=== PATIENT | male | born 1970 | race American Indian/Alaskan Native ===

== ENCOUNTER 2017-02-14 03:50 | Inpatient (IN) | payer MEDICAID, SELFPAY ==
[2017-02-14 03:51] VITALS: BMI 23.3
[2017-02-14 04:08] VITALS: O2SAT 98
--- NOTE | 2017-02-14 04:19 | ED PDOC ---
HPI: Psych/Substance Abuse Time Seen by Provider: 02/14/17 04:08 Chief Complaint (Nursing): Psychiatric Evaluation Chief Complaint (Provider): crisis eval History Per: Patient History/Exam Limitations: clinical condition Additional History Per: Patient Additional Complaint(s): 46 y/o male self-presents for crisis eval. Patient states he has a history of schizophrenia, but has not been taking medications beacuse he does not have insurance. Patient states he has been hearing voices telling him to kill himself and other people. Patient talking to himself during interview; but able to be redirected when questions asked. . Past Medical History Reviewed: Historical Data, Nursing Documentation, Vital Signs Vital Signs: Last Vital Signs Temp 98.5 F 02/14/17 04:03 Pulse 95 H 02/14/17 04:03 Resp 17 02/14/17 04:03 BP 132/98 H 02/14/17 04:03 Pulse Ox 98 02/14/17 04:03 - Medical History PMH: Bipolar Disorder, HTN, Schizophrenia - Family History Family History: States: Unknown Family Hx - Home Medications Home Medications: Ambulatory Orders Medication Instructions Recorded Albuterol HFA [Ventolin HFA 90 1 puff IH Q4 PRN #1 inh 01/09/17 mcg/actuation (8 g)] Azithromycin [Zithromax] 250 mg PO DAILY #1 packet 01/09/17 Fluticasone Nasal [Flonase] 1 actuation NS BID #1 bottle 01/09/17 Ibuprofen [Motrin Tab] 600 mg PO Q6 PRN #15 tab 01/13/17 Amoxicillin/Clavulanate [Augmentin 1 tab PO BID #14 tab 01/19/17 875 MG-125 MG] - Allergies Allergies/Adverse Reactions: Allergies Allergy/AdvReac Type Severity Reaction Status Date / Time No Known Allergies Allergy Verified 01/25/17 14:23 Review of Systems ROS Statement: Except As Marked, All Systems Reviewed And Found Negative Psych: Positive for: Psychosis, Suicidal ideation Physical Exam - Reviewed Nursing Documentation Reviewed: Yes Vital Signs Reviewed: Yes - Physical Exam Appears: Positive for: Well, Non-toxic, No Acute Distress Head Exam: Positive for: ATRAUMATIC, NORMAL INSPECTION, NORMOCEPHALIC Skin: Positive for: Normal Color Eye Exam: Positive for: Normal appearance ENT: Positive for: Normal ENT Inspection Cardiovascular/Chest: Positive for: Regular Rate, Rhythm Respiratory: Positive for: Normal Breath Sounds Gastrointestinal/Abdominal: Positive for: Normal Exam Extremity: Positive for: Normal ROM Neurologic/Psych: Positive for: Alert, Oriented - Laboratory Results Result Diagrams: 02/14/17 04:34 02/14/17 04:34 - ECG O2 Sat by Pulse Oximetry: 98 - Progress ED Course And Treament: labs, urine, crisis eval ED OBSERVATION Date of observation admission: 02/14/17 Time of observation admission: 05:03 - Observation admission statement Patient is being placed in observation because:: alcohol intoxication, psychosis - Goals of Observation Goals of observation are:: observe for clinical sobriety, obtain crisis eval - Progress Note Progress Note: 02/14/17 05:04 Patient awake, resting comfortably Disposition - Clinical Impression Clinical Impression: Psychosis, Alcohol intoxication - Disposition Disposition: Transfer of Care Disposition Time: 05:51 Condition: STABLE Patient Signed Over To: Piter Lugo Handoff Comments: pending clinical sobriety, crisis eval
[2017-02-14 04:37] LABS: BASO % 0.7 % (0.0-2.0); EOS % 0.6 % (0.0-4.0); HEMATOCRIT 39.3 % (35.0-51.0); LYMPH # 1.6 K/uL (1.0-4.3); LYMPH % 39.9 % (20.0-40.0); MEAN CELL VOLUME 76.6 fl (80.0-94.0); MEAN CORPUSCULAR HEMOGLOBIN 25.1 pg (27.0-31.0); MEAN CORPUSCULAR HGB CONC 32.7 g/dL (33.0-37.0); MEAN PLATELET VOLUME 7.1 fl (7.2-11.7); MONO # 0.2 K/uL (0.0-0.8); MONO % 5.8 % (0.0-10.0); NEUT # 2.1 K/uL (1.8-7.0); NRBC % 0.1 % (0.0-0.0); RED CELL DISTRIBUTION WIDTH 14.6 % (11.5-14.5); WHITE BLOOD COUNT 3.9 K/uL (4.8-10.8)
[2017-02-14 04:46] LABS: ALB/GLOB RATIO 1.5 (1.0-2.1); ALCOHOL SERUM 201 mg/dl (0-10); ALKALINE PHOSPHATASE 63 U/L (38-126); ALT/SGPT 28 U/L (21-72); AST/SGOT 29 U/L (17-59); BILIRUBIN,TOTAL 0.4 mg/dl (0.2-1.3); BLOOD UREA NITROGEN 12 mg/dl (9-20); CALCIUM 9.7 mg/dL (8.4-10.2); CARBON DIOXIDE 25 mmol/L (22-30); CHLORIDE 106 mmol/L (98-107); GFR AFRICAN-AMERICAN > 60; GLUCOSE,RANDOM 108 mg/dL (75-110); POTASSIUM 4.2 MMOL/L (3.6-5.0); SODIUM 145 mmol/l (132-148)
--- NOTE | 2017-02-14 05:44 | ED PDOC ---
- Laboratory Results Result Diagrams: 02/14/17 04:34 02/14/17 04:34 - ECG O2 Sat by Pulse Oximetry: 98 Medical Decision Making Medical Decision Making: Patient s/o from Srinivasa Schmidt PA-C at 0600 pending sobriety and crisis eval. Patient s/o to Dr. Ding at 0700 pending sobriety and crisis eval. Scribe Attestation: Documented by Ney Andersen acting as a scribe for Piter Lugo MD. Provider Scribe Attestation: All medical record entries made by the Scribe were at my direction and personally dictated by me. I have reviewed the chart and agree that the record accurately reflects my personal performance of the history, physical exam, medical decision making, and the department course for this patient. I have also personally directed, reviewed, and agree with the discharge instructions and disposition. Disposition - Clinical Impression Clinical Impression: Schizophrenia - POA Present On Arrival: None - Disposition Disposition: Transfer of Care Disposition Time: 05:03 Condition: STABLE Patient Signed Over To: Dorcas Ding Handoff Comments: pending sobriety and crisis eval
[2017-02-14 07:00] LABS: RBC URINE 2 /hpf (0-3); URINE BILIRUBIN NEGATIVE (NEGATIVE); URINE BLOOD NEGATIVE (NEGATIVE); URINE COLOR STRAW (YELLOW); URINE GLUCOSE (UA) NEG (Normal); URINE KETONE NEGATIVE (NEGATIVE); URINE LEUKOCYTE ESTERASE NEG Leu/uL (Negative); URINE PROTEIN NEGATIVE (NEGATIVE); URINE UROBILINOGEN 0.2-1.0 mg/dL (0.2-1.0); WBC URINE < 1 /hpf (0-5)
--- NOTE | 2017-02-14 07:09 | ED PDOC ---
- Laboratory Results Result Diagrams: 02/14/17 04:34 02/14/17 04:34 - ECG Interpretation Of ECG: NSR @ 83, no ST-T changes. O2 Sat by Pulse Oximetry: 98 - Radiology X-Ray: Interpreted by Me X-Ray Interpretation: No Acute Disease Medical Decision Making Medical Decision Making: Time: 0700 Patient signed out by Dr. Lugo pending sobriety and crisis evaluation MEDICAL CLEARANCE: Pt medically cleared for psychiatric admission. Scribe Attestation: Documented by Afsaneh Pollock acting as a scribe for Dorcas Ding MD MD Scribe Attestation: All medical record entries made by the Scribe were at my direction and personally dictated by me. I have reviewed the chart and agree that the record accurately reflects my personal performance of the history, physical exam, medical decision making, and the department course for this patient. I have also personally directed, reviewed, and agree with the discharge instructions and disposition. Disposition - Clinical Impression Clinical Impression: Schizophrenia - POA Present On Arrival: None - Disposition Disposition: Admitted as In-Patient Disposition Time: 08:35 Condition: STABLE
--- NOTE | 2017-02-14 10:05 | RAD ---
HISTORY: Medical clearance COMPARISON: 01/09/2017. FINDINGS: LUNGS: No active pulmonary disease. PLEURA: No significant pleural effusion identified, no pneumothorax apparent. CARDIOVASCULAR: Normal. OSSEOUS STRUCTURES: No significant abnormalities. VISUALIZED UPPER ABDOMEN: Normal. OTHER FINDINGS: None. IMPRESSION: No active disease. No significant interval change compared to the prior examination(s).
[2017-02-14] MEDS ORDERED: DiphenhydrAMINE 50 mg/ml Inj IM PRN (11:47)
[2017-02-14] MEDS ORDERED: Alum-Mag Hydrox-Simethicone Susp (30 mL) PO PRN (11:47)
[2017-02-14] MEDS ORDERED: Magnesium Hydroxide Susp 30 ml UD PO PRN (11:47)
--- NOTE | 2017-02-14 11:59 | PCM.PSYCH ---
Initial Psychiatric Evaluation - Initial Psychiatric Evaluation Type of Admission: Voluntary Legal Status: Capacity Chief Complaint (in patient's own words): i have a headache Patient's Reaction to Hospitalization: cooperative History of Present Illness and Precipitating Events: 46 yo homeless male who states he has a history of schizoaffective disorder. he is positive for cocaine and alcohol. he presented to ER stating he ran out of meds and he is hearing the voice of the devil talking to him. this gives him a headache. he denies using cocaine, despite positive urine. he reports he has been drinking alcohol heavily for last two weeks. he reports he lost his insurance and cannot get his meds. he states he goes to clinic [facility] for treatment, but no records of this. he reports no sleep for 2 days. he is irritable. he states he gets migraine headaches and cannot talk further with the treatment team at this time. Current Medications: Active Medications Generic Name Dose Route Start Last Admin Trade Name Freq PRN Reason Stop Dose Admin Acetaminophen 650 mg 02/14/17 11:47 Tylenol 325mg Tab PO Q4 PRN Pain, moderate (4-7) Al Hydrox/Mg Hydrox/Simethicone 30 ml 02/14/17 11:47 Maalox Plus 30 Ml PO Q4 PRN Dyspepsia Diphenhydramine HCl 50 mg 02/14/17 11:47 Benadryl IM Q6 PRN Extrapyramidal S/S Unable PO Diphenhydramine HCl 50 mg 02/14/17 11:47 Benadryl PO Q6 PRN Extrapyramidal Symptoms Divalproex Sodium 500 mg 02/14/17 17:00 Emerson Escobar(*Bid*) PO BID CLAUDIA Folic Acid 1 mg 02/14/17 12:00 Folic Acid PO DAILY CLAUDIA Haloperidol 5 mg 02/14/17 11:47 Haldol PO Q4 PRN Agitation Haloperidol Lactate 5 mg 02/14/17 11:47 Haldol IM Q4 PRN Agitation, Unable to Take PO Ibuprofen 800 mg 02/14/17 11:47 Motrin Tab PO Q8 PRN Pain, severe (8-10) Lorazepam 2 mg 02/14/17 11:47 Ativan IM Q4 PRN Anxiety/Agitation,Unable PO Lorazepam 2 mg 02/14/17 11:47 Ativan PO Q4 PRN Anxiety/Agitation Lorazepam 1 mg 02/14/17 17:00 Ativan PO BIDHS CLAUDIA Magnesium Hydroxide 30 ml 02/14/17 11:47 Milk Of Magnesia PO HS PRN Constipation Risperidone 1 mg 02/14/17 12:00 Risperdal M-Tab PO DAILY CLAUDIA Thiamine HCl 100 mg 02/14/17 12:00 Vitamin B1 Tab PO DAILY CLAUDIA Trazodone HCl 50 mg 02/14/17 22:00 Desyrel PO HS CLAUDIA Past Psychiatric History - Past Psychiatric History Previous Treatment History: Inpatient Prior Professional Help: as per hpi. states he was hospitalized at [facility] 4 months ago History of Abuse: will need to assess at a later time History of ETOH/Drug Use: cocaine, alcohol. denies cigarettes use. denies other illicit substance. use. will not quantify alcohol use and denies that he uses cocaine History of Family Illness: denies Pertinent Medical Hx (Current Medical&Sleep Prob, Allergies): Allergies Allergy/AdvReac Type Severity Reaction Status Date / Time No Known Allergies Allergy Verified 01/25/17 14:23 No Known Home Med 02/14/17 states he has migraine headaches and hypertension Review of Systems - Psychiatric Psychiatric: As Per HPI Mental Status Examination - Personal Presentation Personal Presentation: Looks stated age Additional comments: avoides eye contact, holds head and rocks back and forth - Affect Affect: Constricted, Depressed - Motor Activity Motor Activity: Calm - Reliability in Providing Information Reliability in Providing Information: Poor, due to alteration in thoughts - Speech Speech: Organized - Mood Mood: Depressed, Anxious - Formal Thought Process Formal Thought Process: Hallucinations (hears the devils voices), Delusions - Hallucinations/Delusions Hallucinations: Auditory - Obsessions/Compulsions Obsessions: No Compulsions: No - Cognitive Functions Orientation: Person Sensorium: Alert Attention/Concentration: Attentive, Easily distracted Abstract Thinking: Paterson Estimate of Intelligence: Below average Judgement: Imparied, as evidence by: Poor judgement, Intact, as evidence by: Insight regarding need for hospitalization Memory: Recent intact, as evidence by: Ability to recall events of the day, Remote intact, as evidenced by: Abilit to recall sig. life events - Risk Risk: Suicidal, Withdrawal - Strength & Assets Inventory Strength & Assets Inventory: Intelligence - Limitations Limitations: Other (homeless) DSM 5 DX - DSM 5 DSM 5 Diagnosis: schizoaffective disorder alcohol dependence cocaine abuse - Recommended/Plan of Treatment Treatment Recommendations and Plan of Treatment: admit to [facility] for safety and observation gather collateral information provide supportive therapy adjust meds- restart depakote, risperdal, will use ativan to detox. hospitalist consult- keegan, htn disposition planning Projected ELOS: 3-5 days Prognosis: fair - Smoking Cessation Smoking Cessation Initiated: No Reason for not providing: denies smoking
--- NOTE | 2017-02-14 13:26 | CARD ---
APPROVED REPORT EKG Measurement Heart [id number] DC [id number] <Conclusion> Normal sinus rhythm Normal ECG
[2017-02-14] MEDS: Risperidone M tab 1 MG PO SCH (17:05)
[2017-02-14] MEDS: Divalproex 500 mg DR(BID formulation) PO SCH (17:05)
[2017-02-15 07:25] LABS: CHOLESTEROL 207 mg/dL (0-199)
[2017-02-15] MEDS: Risperidone M tab 1 MG PO SCH ×2 (10:09→21:53)
[2017-02-15] MEDS: Divalproex 500 mg DR(BID formulation) PO SCH ×2 (10:09→17:28)
--- NOTE | 2017-02-15 12:59 | PCM.PYCHPN ---
Psychiatric Progress Note - Psychiatric Progress Note Patient seen today, length of contact: in treatment team Patient Chief Complaint: voices are still there Problems Identified/Issues Discussed: pt reports headache is improing. states risperdal helps with voices, but they are still present. he is denying any suicidal thoughts currently. isolates in room. cannot explain how cocaine ended up in his uds. pt wants to return to [facility]. no evidence of alcohol withdrawal Medication Change: Yes Medical Record Reviewed: Yes Mental Status Examination - Cognitive Function Orientation: Person Memory: Intact Attention: WNL Concentration: WNL Association: WNL Fund of Knowledge: [facility] Decription of patient's judgement and insights: fair - Mood Mood: Depressed, Anxious - Affect Affect: Constricted, Depressed - Formal Thought Process Formal Thought Process: Hallucinations (hears the devils voices), Delusions Psychotic Thoughts and Behaviors: states voices are improving - Suicidal Ideation Suicidal Ideation: No - Homicidal Ideation Homicidal Ideation: No Goal/Treatment Plan - Goal/Treatment Plan Need for Continued Stay: Remain at risks for inpatient hospitalization, Discharge may exacerbated symptoms Progress Toward Problem(s) and Goals/Treatment Plan: schizoaffective disorder alcohol dependence cocaine abuse will increase risperdal start to taper ativan hospitalist managing medical issues- htn Estimated Date of D/C: 02/19/17 - Smoking Cessation Smoking Cessation Initiated: No Reason for not providing: does not smoke
--- NOTE | 2017-02-15 19:28 | CP.PCM.HP ---
Past Patient History - Infectious Disease Hx of Infectious Diseases: None - Past Social History Smoking Status: Never Smoked - CARDIAC Hx Cardiac Disorders: No - PULMONARY Hx Tuberculosis: No - NEUROLOGICAL HX Cerebrovascular Accident: No Hx Seizures: No - HEENT Hx HEENT Problems: No - RENAL Hx Chronic Kidney Disease: No - ENDOCRINE/METABOLIC Hx Endocrine Disorders: No - HEMATOLOGICAL/ONCOLOGICAL Hx Cancer: No Hx Human Immunodeficiency Virus (HIV): No - INTEGUMENTARY Hx Dermatological Problems: No - MUSCULOSKELETAL/RHEUMATOLOGICAL Hx Musculoskeletal Disorders: No - GASTROINTESTINAL Hx Gastrointestinal Disorders: No - GENITOURINARY/GYNECOLOGICAL Hx Sexually Transmitted Disorders: No - PSYCHIATRIC Hx Substance Use: Yes - SURGICAL HISTORY Hx Surgeries: No - ANESTHESIA Hx Anesthesia: No Meds Allergies/Adverse Reactions: Allergies Allergy/AdvReac Type Severity Reaction Status Date / Time No Known Allergies Allergy Verified 01/25/17 14:23 Results - Vital Signs Recent Vital Signs: Last Vital Signs Temp 97.5 F L 02/15/17 17:50 Pulse 120 H 02/15/17 17:50 Resp 20 02/15/17 17:50 BP 116/68 02/15/17 17:50 Pulse Ox 98 02/15/17 04:42 - Labs Result Diagrams: 02/14/17 04:34 02/14/17 04:34 Labs: Laboratory Results - last 24 hr 02/15/17 02/15/17 06:00 06:00 Hemoglobin A1c 6.1 Triglycerides 125 D Cholesterol 207 H LDL Cholesterol Direct 111 HDL Cholesterol 55
--- NOTE | 2017-02-15 19:34 | CP.PCM.CON ---
History of Present Illness - History of Present Illness History of Present Illness: 46 y/o male admitted for exacerbation of schizophrenia, substance abuse and suicidal ideations. Patient also has a history of HTN. Continues to have auditory hallucinations, patient was without medications for an unknown period of time. PMH: Schizophrenia, HTN Meds: lisinopril 10 mg (per [facility]), previous psych medications being reevaluated presently by inpatient psych Allergies: NKDA PMD: MAC Past Patient History - Infectious Disease Hx of Infectious Diseases: None - Past Social History Smoking Status: Never Smoked - CARDIAC Hx Cardiac Disorders: No - PULMONARY Hx Tuberculosis: No - NEUROLOGICAL HX Cerebrovascular Accident: No Hx Seizures: No - HEENT Hx HEENT Problems: No - RENAL Hx Chronic Kidney Disease: No - ENDOCRINE/METABOLIC Hx Endocrine Disorders: No - HEMATOLOGICAL/ONCOLOGICAL Hx Cancer: No Hx Human Immunodeficiency Virus (HIV): No - INTEGUMENTARY Hx Dermatological Problems: No - MUSCULOSKELETAL/RHEUMATOLOGICAL Hx Musculoskeletal Disorders: No - GASTROINTESTINAL Hx Gastrointestinal Disorders: No - GENITOURINARY/GYNECOLOGICAL Hx Sexually Transmitted Disorders: No - PSYCHIATRIC Hx Substance Use: Yes - SURGICAL HISTORY Hx Surgeries: No - ANESTHESIA Hx Anesthesia: No Meds Allergies/Adverse Reactions: Allergies Allergy/AdvReac Type Severity Reaction Status Date / Time No Known Allergies Allergy Verified 01/25/17 14:23 - Medications Medications: Current Medications Acetaminophen (Tylenol 325mg Tab) 650 mg PO Q4 PRN PRN Reason: Pain, moderate (4-7) Last Admin: 02/14/17 12:20 Dose: 650 mg Al Hydrox/Mg Hydrox/Simethicone (Maalox Plus 30 Ml) 30 ml PO Q4 PRN PRN Reason: Dyspepsia Diphenhydramine HCl (Benadryl) 50 mg IM Q6 PRN PRN Reason: Extrapyramidal S/S Unable PO Diphenhydramine HCl (Benadryl) 50 mg PO Q6 PRN PRN Reason: Extrapyramidal Symptoms Divalproex Sodium (Depakote Dr(*Bid*)) 500 mg PO BID [facility] Last Admin: 02/15/17 17:28 Dose: 500 mg Folic Acid (Folic Acid) 1 mg PO DAILY [facility] Last Admin: 02/15/17 10:09 Dose: 1 mg Haloperidol (Haldol) 5 mg PO Q4 PRN PRN Reason: Agitation Haloperidol Lactate (Haldol) 5 mg IM Q4 PRN PRN Reason: Agitation, Unable to Take PO Ibuprofen (Motrin Tab) 800 mg PO Q8 PRN PRN Reason: Pain, severe (8-10) Last Admin: 02/15/17 10:10 Dose: 800 mg Lisinopril (Zestril) 10 mg PO DAILY [facility] Lorazepam (Ativan) 2 mg IM Q4 PRN PRN Reason: Anxiety/Agitation,Unable PO Lorazepam (Ativan) 2 mg PO Q4 PRN PRN Reason: Anxiety/Agitation Lorazepam (Ativan) 1 mg PO BID [facility] Last Admin: 02/15/17 17:28 Dose: 1 mg Magnesium Hydroxide (Milk Of Magnesia) 30 ml PO HS PRN PRN Reason: Constipation Risperidone (Risperdal M-Tab) 1 mg PO DAILY [facility] Last Admin: 02/15/17 10:09 Dose: 1 mg Risperidone (Risperdal M-Tab) 1 mg PO HS [facility] Thiamine HCl (Vitamin B1 Tab) 100 mg PO DAILY [facility] Last Admin: 02/15/17 10:09 Dose: 100 mg Trazodone HCl (Desyrel) 50 mg PO HS [facility] Last Admin: 02/14/17 21:31 Dose: 50 mg Physical Exam - Constitutional Appears: Non-toxic - Head Exam Head Exam: ATRAUMATIC - Eye Exam Eye Exam: EOMI Pupil Exam: PERRL - Respiratory Exam Respiratory Exam: NORMAL BREATHING PATTERN - Cardiovascular Exam Cardiovascular Exam: REGULAR RHYTHM - GI/Abdominal Exam GI & Abdominal Exam: Soft. absent: Tenderness - Neurological Exam Neurological exam: Alert - Psychiatric Exam Psychiatric exam: Flat Affect - Skin Skin Exam: Dry, Warm Results - Vital Signs Recent Vital Signs: Last Vital Signs Temp 97.5 F L 02/15/17 17:50 Pulse 120 H 02/15/17 17:50 Resp 20 02/15/17 17:50 BP 116/68 02/15/17 17:50 Pulse Ox 98 02/15/17 04:42 - Labs Result Diagrams: 02/14/17 04:34 02/14/17 04:34 Labs: Laboratory Results - last 24 hr 02/15/17 02/15/17 06:00 06:00 Hemoglobin A1c 6.1 Triglycerides 125 D Cholesterol 207 H LDL Cholesterol Direct 111 HDL Cholesterol 55 Assessment & Plan - Assessment and Plan (Free Text) Plan: 46 y/o male admitted for exacerbation of schizophrenia, substance abuse and suicidal ideations. Patient also has a history of HTN. Schizophrenia managemnet as per psych HTN controlled c/w home med lisinopril 10mg PO PPx DVT - ambulation only
[2017-02-16 07:49] LABS: HEMATOCRIT 40.1 % (35.0-51.0); MEAN CELL VOLUME 77.1 fl (80.0-94.0); MEAN CORPUSCULAR HEMOGLOBIN 25.2 pg (27.0-31.0); MEAN CORPUSCULAR HGB CONC 32.7 g/dL (33.0-37.0); RED CELL DISTRIBUTION WIDTH 14.7 % (11.5-14.5); WHITE BLOOD COUNT 5.5 K/uL (4.8-10.8)
--- NOTE | 2017-02-16 08:35 | PCM.PYCHPN ---
Psychiatric Progress Note - Psychiatric Progress Note Patient seen today, length of contact: discussed with team Patient Chief Complaint: i'm not hearing satan now Problems Identified/Issues Discussed: pt denies having headaches today. he is isolating in room. sitting up in bed holding hands over head. pt is denying feeling nauseated, no tremors. denies withdrawal symptoms. dneies se with increase in risperdal. Medication Change: No Medical Record Reviewed: Yes Mental Status Examination - Cognitive Function Orientation: Person Memory: Intact Attention: WNL Concentration: WNL Association: WNL Fund of Knowledge: WN Decription of patient's judgement and insights: fair - Mood Mood: Anxious - Affect Affect: Constricted, Depressed - Speech Speech: Appropriate - Formal Thought Process Formal Thought Process: No Impairment Psychotic Thoughts and Behaviors: denies a/v hallucinations - Suicidal Ideation Suicidal Ideation: No - Homicidal Ideation Homicidal Ideation: No Plan: denies suicidal or homicidal thoughts Goal/Treatment Plan - Goal/Treatment Plan Need for Continued Stay: Remain at risks for inpatient hospitalization, Discharge may exacerbated symptoms Progress Toward Problem(s) and Goals/Treatment Plan: schizoaffective disorder alcohol dependence cocaine abuse will continue risperdal at current dose will lower ativan tomorrow hospitalist managing medical issues- htn Estimated Date of D/C: 02/19/17
[2017-02-16] MEDS: Risperidone M tab 1 MG PO SCH ×3 (08:45→21:38)
[2017-02-16] MEDS: Divalproex 500 mg DR(BID formulation) PO SCH ×2 (08:45→17:17)
[2017-02-17] MEDS: Divalproex 500 mg DR(BID formulation) PO SCH ×2 (09:33→17:48)
[2017-02-17] MEDS: Risperidone M tab 1 MG PO SCH ×3 (09:33→21:06)
--- NOTE | 2017-02-17 10:19 | PCM.PYCHPN ---
Psychiatric Progress Note - Psychiatric Progress Note Patient seen today, length of contact: Patient evaluated, chart reviewed, case discussed with team Patient Chief Complaint: "I'm good" Problems Identified/Issues Discussed: Patient was observed methodically making up his bed. He reports that his mood is improving. She denies acute symptoms of ETOH w/drawal, currently on Ativan taper. He has been engaging appropriately with staff and peers. He is goal- oriented in conversation. He has been compliant with medications and denies acute side effects. Medication Change: Yes (Taper Ativan) Medical Record Reviewed: Yes Mental Status Examination - Cognitive Function Orientation: Person, Place, Situation, Time Memory: Intact Attention: WNL Concentration: WNL Association: WNL Fund of Knowledge: [facility] Decription of patient's judgement and insights: Fair I/J - Mood Mood: Depressed, Anxious - Affect Affect: Constricted - Speech Speech: Appropriate - Formal Thought Process Formal Thought Process: No Impairment - Suicidal Ideation Suicidal Ideation: No - Homicidal Ideation Homicidal Ideation: No Goal/Treatment Plan - Goal/Treatment Plan Need for Continued Stay: Remain at risks for inpatient hospitalization, Discharge may exacerbated symptoms Progress Toward Problem(s) and Goals/Treatment Plan: 46 yo male w/ h/o schizoaffective disorder, cocaine use disorder, alcohol use disorder, now improving clinically, but would benefit from continued psychiatric hospitalization from safety, treatment and stabilization. -Taper Ativan; no current signs/symptoms of ETOH withdrawal -Continue Depakote 500 mg PO BID (VPA 63.4 on 02/17/17), Risperdal 1 mg PO Q12 hr, Trazodone 50 mg PO HS -Individual and group therapy -Substance abuse cessation counseling Estimated Date of D/C: 02/19/17
[2017-02-18] MEDS: Divalproex 500 mg DR(BID formulation) PO SCH ×2 (09:06→16:52)
[2017-02-18] MEDS: Risperidone M tab 1 MG PO SCH ×2 (09:07→21:19)
--- NOTE | 2017-02-18 14:08 | PCM.PYCHPN ---
Psychiatric Progress Note - Psychiatric Progress Note Patient seen today, length of contact: Patient evaluated, chart reviewed, case discussed with team Patient Chief Complaint: "I'm good" Problems Identified/Issues Discussed: No significant events overnight. He reports that his mood is improving. She denies acute symptoms of ETOH w/drawal. He has been engaging appropriately with staff and peers. He is goal-oriented in conversation. He has been compliant with medications and denies acute side effects. Medication Change: Yes (Stop Ativan) Medical Record Reviewed: Yes Mental Status Examination - Cognitive Function Orientation: Person, Place, Situation, Time Memory: Intact Attention: WNL Concentration: WNL Association: [facility] Fund of Knowledge: [facility] Decription of patient's judgement and insights: Fair I/J - Mood Mood: Neutral - Affect Affect: Constricted - Speech Speech: Appropriate - Formal Thought Process Formal Thought Process: No Impairment Psychotic Thoughts and Behaviors: NO AH/VH/paranoia - Suicidal Ideation Suicidal Ideation: No - Homicidal Ideation Homicidal Ideation: No Goal/Treatment Plan - Goal/Treatment Plan Need for Continued Stay: Remain at risks for inpatient hospitalization, Discharge may exacerbated symptoms Progress Toward Problem(s) and Goals/Treatment Plan: 46 yo male w/ h/o schizoaffective disorder, cocaine use disorder, alcohol use disorder, now improving clinically. -Stop Ativan; no current signs/symptoms of ETOH withdrawal -Continue Depakote 500 mg PO BID (VPA 63.4 on 02/17/17), Risperdal 1 mg PO Q12 hr, Trazodone 50 mg PO HS -Individual and group therapy -Substance abuse cessation counseling -Discharge tomorrow if patient continues to improve clinically Estimated Date of D/C: 02/19/17
[2017-02-19 06:09] VITALS: BP 130/88; PULSE 80; RESP 20; TEMP 97.5
[2017-02-19] MEDS: Divalproex 500 mg DR(BID formulation) PO SCH (09:08)
[2017-02-19] MEDS: Risperidone M tab 1 MG PO SCH (09:09)
--- NOTE | 2017-02-19 14:24 | PCM.PYCHDC ---
Mental Status Examination - Mental Status Examination Orientation: Person, Place, Situation, Time Memory: Intact Mood: Neutral Affect: Broad Speech: Appropriate Attention: WNL Concentration: WNL Association: WNL Fund of Knowledge: WNL Formal Thought Process: No Impairment Description of patient's judgement and insight: fair i./j Psychotic Thoughts and Behaviors: denies a/v hallucinations Suicidal Ideation: No Current Homicidal Ideation?: No Plan: pt is denying any suicidal or homicidal thoughts/plan or intent Discharge Summary - Discharge Note Reason for Hospitalization: pt was having psychotic symptoms and depression in context of cocaine and alcohol use. Consultations:: List each consultation separately and include: 1. Reason for request. 2. Findings. 3. Follow-up Consultations: seen by the hospitalist Summary of Hospital Course include:: 1. Description of specific treatment plan utilized for patients during their course of treatmen. 2. Summarize the time- course for resolution of acute symptoms and/or regressed behaviors. 3. Describe issues identified and worked on during hospitalization. 4. Describe medication utilized. 5. Describe medical problems identified and treated. 6. Reassessment of suicide risk Summary of Hospital Course: 46 yo homeless male who states he has a history of schizoaffective disorder. he is positive for cocaine and alcohol. he presented to ER stating he ran out of meds and he is hearing the voice of the devil talking to him. this gives him a headache. he denies using cocaine, despite positive urine. he reports he has been drinking alcohol heavily for last two weeks. he reports he lost his insurance and cannot get his meds. he states he goes to clinic on [facility] for treatment, but no records of this. he reports no sleep for 2 days. he is irritable. he states he gets migraine headaches and cannot talk further with the treatment team at this time. pt was admitted to [facility] and oriented to the unit. placed on routine safety protocols. pt was started on meds to detox from alcohol and was started on risperdal and depakote to target his mood symptoms. pt transfered to 3 to accomadate more acutely disturbed pt's. his mood improved and he was no longer having any auditory hallucinations. he was denying any suicidal or homicidal thoughts. he was agreeing to follow up with [facility] after discharge. - Final Diagnosis (DSM 5) Condition upon Discharge: STABLE DSM 5: schizoaffective disorder alcohol dependence cocaine abuse Disposition: HOME/ ROUTINE Follow-up Treatment Plan: follow up with aftercare as directed take medications as prescribed do not use alcohol, tobacco or other illicit substances call 911 if any suicidal or homicidal thoughts attend aa/na meetings daily Prescriptions/Medication Reconciliation: Divalproex [Depakote DR(*BID*)] 500 mg PO BID #60 tcp Folic Acid 1 mg PO DAILY #30 tab Haloperidol [Haldol] 5 mg PO Q4 PRN #30 PRN Reason: Agitation Lisinopril [Zestril] 10 mg PO DAILY #30 tab risperiDONE [RisperDAL Tab] 1 mg PO BID #60 tab Thiamine [Vitamin B1 Tab] 100 mg PO DAILY #30 tab traZODone [Desyrel] 50 mg PO HS #30 tab - Smoking Cessation Smoking Cessation Medication prescribed: No Reason for not providing: declines - Antipsychotic Medications Pt discharged on 2 or more routine antipsychotic medications: No
== END 2017-02-19 13:45 | disposition home or self-care (01) | DRG 885 ==
LOC: H.ER 03:50 → OBSVTOIN 05:03 → H.EROBSV 05:03 → INTOOBSV 05:03 → OBSVTOIN 08:35 → H.ERHOLD 08:35 → H.EROBSV 08:47 → H.PSYCH 10:02 → H.STEP 02-17 22:20
PROVIDERS: ADMIT Psychiatry & Neurology Psychiatry; ATTEND Psychiatry & Neurology Psychiatry
PROC: GZHZZZZ Group Psychotherapy (ICD-10-PCS; principal; 2017-02-14)
PROC: GZ58ZZZ Individual Psychotherapy, Cognitive-Behavioral (ICD-10-PCS; 2017-02-14)
DX: F25.9 Schizoaffective disorder, unspecified (principal); R45.851 Suicidal ideations; F10.229 Alcohol dependence with intoxication, unspecified; F14.10 Cocaine abuse, uncomplicated; F31.9 Bipolar disorder, unspecified; Y90.7 Blood alcohol level of 200-239 mg/100 ml; I10 Essential (primary) hypertension; Z59.0 Homelessness

== ENCOUNTER 2017-02-23 13:31 | Emergency (ER) | payer MEDICAID ==
[2017-02-23 13:32] VITALS: BMI 23.3
[2017-02-23 14:04] VITALS: BP 143/83; RESP 16; TEMP 100.5; O2SAT 100
--- NOTE | 2017-02-23 14:36 | ED PDOC ---
HPI: General Adult Time Seen by Provider: 02/23/17 14:06 Chief Complaint (Nursing): Cough, Cold, Congestion Chief Complaint (Provider): Cough, Cold, Congestion History Per: Patient History/Exam Limitations: no limitations Onset/Duration Of Symptoms: Hrs Current Symptoms Are (Timing): Still Present Additional Complaint(s): Bradly Doherty is a 46 year old male that presents to the ED with a chief complaint of cough and fever that he developed today. Patient reports that he had developed similar symptoms two weeks ago without fever, and that those symptoms were resolved with [id number] cough medication. He also states that he had a chest x-ray done two weeks ago, which was normal. Past Medical History Reviewed: Historical Data, Nursing Documentation, Vital Signs Vital Signs: Last Vital Signs Temp 100.5 F H 02/23/17 15:49 Pulse 92 H 02/23/17 15:49 Resp 16 02/23/17 14:00 BP 143/83 02/23/17 14:00 Pulse Ox 100 02/23/17 14:38 - Medical History PMH: Bipolar Disorder, HTN, Schizophrenia Denies: Diabetes, Hepatitis, HIV, Chronic Kidney Disease, Seizures, Sexually Transmitted Disease - Family History Family History: States: Unknown Family Hx - Home Medications Home Medications: Ambulatory Orders Medication Instructions Recorded Divalproex [Depakote DR(*BID*)] 500 mg PO BID #60 tcp 02/19/17 Folic Acid 1 mg PO DAILY #30 tab 02/19/17 Haloperidol [Haldol] 5 mg PO Q4 PRN #30 02/19/17 Lisinopril [Zestril] 10 mg PO DAILY #30 tab 02/19/17 Thiamine [Vitamin B1 Tab] 100 mg PO DAILY #30 tab 02/19/17 risperiDONE [RisperDAL Tab] 1 mg PO BID #60 tab 02/19/17 traZODone [Desyrel] 50 mg PO HS #30 tab 02/19/17 Azithromycin [Zithromax] 250 mg PO DAILY #6 tab 02/23/17 Naproxen [Naprosyn] 500 mg PO BID PRN #30 tab 02/23/17 Promethazine DM [Phenergan DM 5 - 10 ml PO Q8 PRN #120 ml 02/23/17 Syrup] - Allergies Allergies/Adverse Reactions: Allergies Allergy/AdvReac Type Severity Reaction Status Date / Time No Known Allergies Allergy Verified 01/25/17 14:23 Review of Systems Constitutional: Positive for: Fever Respiratory: Positive for: Cough Physical Exam - Reviewed Nursing Documentation Reviewed: Yes Vital Signs Reviewed: Yes - Physical Exam Appears: Positive for: Non-toxic, No Acute Distress Head Exam: Positive for: ATRAUMATIC, NORMOCEPHALIC Skin: Positive for: Normal Color, Warm Eye Exam: Positive for: Normal appearance, EOMI, PERRL ENT: Positive for: TM Is/Are (nonerythematous, nonbulging), Pharyngeal Erythema. Negative for: Tonsillar Exudate Cardiovascular/Chest: Positive for: Regular Rate, Rhythm. Negative for: Murmur Respiratory: Positive for: Normal Breath Sounds. Negative for: Wheezing Gastrointestinal/Abdominal: Positive for: Normal Exam, Soft. Negative for: Tenderness Neurologic/Psych: Positive for: Alert, Oriented - ECG O2 Sat by Pulse Oximetry: 100 (RA) Pulse Ox Interpretation: Normal Medical Decision Making Medical Decision Making: Impression: Cough and Fever Plan: * Acetaminophen 975 mg PO * Flu Swab * Rapid Strep * Reevaluation Scribe Attestation: Documented by Haven Petty, acting as a scribe for Jimi Tejada PA-C. Provider Scribe Attestation: All medical record entries made by the Scribe were at my direction and personally dictated by me. I have reviewed the chart and agree that the record accurately reflects my personal performance of the history, physical exam, medical decision making, and the department course for this patient. I have also personally directed, reviewed, and agree with the discharge instructions and disposition. Disposition - Clinical Impression Clinical Impression: Cough, Fever - Patient ED Disposition Is Patient to be Admitted: No - Disposition Referrals: [facility] [Outside] Disposition: Routine/Home Disposition Time: 15:50 Condition: IMPROVED Prescriptions: Azithromycin [Zithromax] 250 mg PO DAILY #6 tab Naproxen [Naprosyn] 500 mg PO BID PRN #30 tab PRN Reason: Pain Promethazine DM [Phenergan DM Syrup] 5 - 10 ml PO Q8 PRN #120 ml PRN Reason: Cough Instructions: Upper Respiratory Infection (ED) Print Language: UPPER SORBIAN
[2017-02-23 15:49] VITALS: PULSE 92
== END 2017-02-23 16:01 | disposition home or self-care (01) ==
LOC: H.ER 13:31
DX: J06.9 Acute upper respiratory infection, unspecified (principal); R50.9 Fever, unspecified

== ENCOUNTER 2017-02-23 20:16 | Emergency (ER) | payer MEDICAID ==
[2017-02-23 20:16] VITALS: BMI 23.3
[2017-02-23 21:06] VITALS: BP 142/66; RESP 16; O2SAT 98
[2017-02-23] MEDS ORDERED: Sodium Chloride 0.9% 1,000 ML IV STA (21:15)
--- NOTE | 2017-02-23 21:25 | ED PDOC ---
HPI: General Adult Time Seen by Provider: 02/23/17 21:07 Chief Complaint (Nursing): Fever Chief Complaint (Provider): Fever, Cough History Per: Patient History/Exam Limitations: no limitations Onset/Duration Of Symptoms: Hrs Current Symptoms Are (Timing): Still Present Additional Complaint(s): Bradly Doherty is a 46 year old male that was seen by me earlier today in the ED. Patient has since developed fever and coughing, and denies any chets pain, SOB, hemoptysis, or abdominal pain. He states that he had similar symptoms two weeks ago that were resolved through the use of [id number] medication. Patient states that he was in the senior living today, and that they did not give him a bed away from the air conditioner. Patient additionally reports that he did not taken any medication after being discharged, including antipyretics. He states that he presents to the ED in order to get medication for his fever. Past Medical History Reviewed: Historical Data, Nursing Documentation, Vital Signs Vital Signs: Last Vital Signs Temp 98.9 F 02/23/17 22:49 Pulse 98 H 02/23/17 22:49 Resp 16 02/23/17 21:03 BP 142/66 02/23/17 21:03 Pulse Ox 98 02/23/17 21:28 - Medical History PMH: Bipolar Disorder, HTN, Schizophrenia Denies: Diabetes, Hepatitis, HIV, Chronic Kidney Disease, Seizures, Sexually Transmitted Disease - Family History Family History: States: Unknown Family Hx - Home Medications Home Medications: Ambulatory Orders Medication Instructions Recorded Divalproex [Depakote DR(*BID*)] 500 mg PO BID #60 tcp 02/19/17 Folic Acid 1 mg PO DAILY #30 tab 02/19/17 Haloperidol [Haldol] 5 mg PO Q4 PRN #30 02/19/17 Lisinopril [Zestril] 10 mg PO DAILY #30 tab 02/19/17 Thiamine [Vitamin B1 Tab] 100 mg PO DAILY #30 tab 02/19/17 risperiDONE [RisperDAL Tab] 1 mg PO BID #60 tab 02/19/17 traZODone [Desyrel] 50 mg PO HS #30 tab 02/19/17 Azithromycin [Zithromax] 250 mg PO DAILY #6 tab 02/23/17 Naproxen [Naprosyn] 500 mg PO BID PRN #30 tab 02/23/17 Promethazine DM [Phenergan DM 5 - 10 ml PO Q8 PRN #120 ml 02/23/17 Syrup] - Allergies Allergies/Adverse Reactions: Allergies Allergy/AdvReac Type Severity Reaction Status Date / Time No Known Allergies Allergy Verified 01/25/17 14:23 Review of Systems Constitutional: Positive for: Fever Cardiovascular: Negative for: Chest Pain Respiratory: Positive for: Cough. Negative for: Shortness of Breath, Hemoptysis Gastrointestinal: Negative for: Abdominal Pain Physical Exam - Reviewed Nursing Documentation Reviewed: Yes Vital Signs Reviewed: Yes - Physical Exam Appears: Positive for: Non-toxic, No Acute Distress Head Exam: Positive for: ATRAUMATIC, NORMOCEPHALIC Skin: Positive for: Normal Color, Warm Eye Exam: Positive for: Normal appearance, EOMI, PERRL ENT: Positive for: Normal ENT Inspection Cardiovascular/Chest: Positive for: Regular Rate, Rhythm. Negative for: Murmur Respiratory: Positive for: Normal Breath Sounds. Negative for: Wheezing Gastrointestinal/Abdominal: Positive for: Normal Exam, Soft. Negative for: Tenderness Neurologic/Psych: Positive for: Alert, Oriented - Laboratory Results Result Diagrams: 02/23/17 21:20 02/23/17 21:20 - ECG O2 Sat by Pulse Oximetry: 98 (RA) Pulse Ox Interpretation: Normal - Radiology X-Ray: Interpreted by Nv (CXR) X-Ray Interpretation: No Acute Disease - Progress ED Course And Treament: On re-evaluation, pt. informed of results and instructed to obtain medications that were previously prescribed. Re-evaluation Time: 23:41 Condition: Re-examined, Improved Medical Decision Making Medical Decision Making: Impression: Fever, Cough Plan: * Chest X-Ray * VBG * CMP * CBC * Blood Culture * Sodium Chloride 1000 mL at 1000 mLs/hr * Acetaminophen 975 mg PO * Ibuprofen 600 mg PO * Reevaluation Scribe Attestation: Documented by Haven Petty, acting as a scribe for Jimi Tejada PA-C. Provider Scribe Attestation: All medical record entries made by the Scribe were at my direction and personally dictated by me. I have reviewed the chart and agree that the record accurately reflects my personal performance of the history, physical exam, medical decision making, and the department course for this patient. I have also personally directed, reviewed, and agree with the discharge instructions and disposition. Disposition - Clinical Impression Clinical Impression: Viral syndrome - Patient ED Disposition Is Patient to be Admitted: No - Disposition Disposition: Routine/Home Disposition Time: 23:43 Condition: STABLE Instructions: Viral Syndrome (ED) Print Language: TAJIK
[2017-02-23 22:08] LABS: VENOUS BLOOD GAS PCO2 39 mmHg (40-60); VENOUS BLOOD PH 7.45 (7.32-7.43)
[2017-02-23 22:25] LABS: BASO % 0.4 % (0.0-2.0); EOS % 0.2 % (0.0-4.0); HEMATOCRIT 35.6 % (35.0-51.0); LYMPH # 0.9 K/uL (1.0-4.3); LYMPH % 15.5 % (20.0-40.0); MEAN CELL VOLUME 76.9 fl (80.0-94.0); MEAN CORPUSCULAR HEMOGLOBIN 25.4 pg (27.0-31.0); MEAN CORPUSCULAR HGB CONC 33.1 g/dL (33.0-37.0); MEAN PLATELET VOLUME 8.1 fl (7.2-11.7); MONO # 0.7 K/uL (0.0-0.8); MONO % 11.7 % (0.0-10.0); NEUT # 4.4 K/uL (1.8-7.0); NEUT % 72.2 % (50.0-75.0); RED CELL DISTRIBUTION WIDTH 14.1 % (11.5-14.5)
--- NOTE | 2017-02-23 22:30 | RAD ---
HISTORY: cough COMPARISON: Chest x-ray performed 02/14/17 TECHNIQUE: Chest PA and lateral FINDINGS: LUNGS: No focal consolidation. Please note that chest x-ray has limited sensitivity for the detection of pulmonary masses. PLEURA: No significant pleural effusion identified. No definite pneumothorax . CARDIOVASCULAR: The cardiomediastinal silhouette appears within normal limits of size. OSSEOUS STRUCTURES: No acute osseous abnormality identified. VISUALIZED UPPER ABDOMEN: Unremarkable. OTHER FINDINGS: None. IMPRESSION: No focal consolidation, significant pleural effusion, or definite pneumothorax identified.
[2017-02-23 22:37] LABS: ALB/GLOB RATIO 1.4 (1.0-2.1); ALKALINE PHOSPHATASE 61 U/L (38-126); ALT/SGPT 23 U/L (21-72); AST/SGOT 34 U/L (17-59); BILIRUBIN,TOTAL 0.6 mg/dl (0.2-1.3); BLOOD UREA NITROGEN 15 mg/dl (9-20); CALCIUM 9.2 mg/dL (8.4-10.2); CARBON DIOXIDE 25 mmol/L (22-30); CHLORIDE 101 mmol/L (98-107); GFR AFRICAN-AMERICAN > 60; GLUCOSE,RANDOM 102 mg/dL (75-110); POTASSIUM 3.7 MMOL/L (3.6-5.0); SODIUM 137 mmol/l (132-148); TOTAL PROTEIN 7.1 G/DL (6.3-8.2)
[2017-02-23 22:50] VITALS: PULSE 98; TEMP 98.9
== END 2017-02-23 23:50 | disposition home or self-care (01) ==
LOC: H.ER 20:16
DX: B34.9 Viral infection, unspecified (principal); R05 Cough; F20.9 Schizophrenia, unspecified; F31.9 Bipolar disorder, unspecified; I10 Essential (primary) hypertension

== ENCOUNTER 2017-04-27 16:27 | Inpatient (IN) | payer MEDICAID ==
[2017-04-27 16:27] VITALS: BMI 23.3
[2017-04-27 18:02] LABS: BASO % 0.4 % (0.0-2.0); EOS # 0.2 K/uL (0.0-0.7); HEMATOCRIT 35.7 % (35.0-51.0); LYMPH # 2.2 K/uL (1.0-4.3); LYMPH % 44.6 % (20.0-40.0); MEAN CELL VOLUME 80.4 fl (80.0-94.0); MEAN CORPUSCULAR HEMOGLOBIN 25.7 pg (27.0-31.0); MEAN PLATELET VOLUME 7.3 fl (7.2-11.7); MONO # 0.5 K/uL (0.0-0.8); MONO % 10.8 % (0.0-10.0); NEUT # 2.1 K/uL (1.8-7.0); NEUT % 41.2 % (50.0-75.0); RED CELL DISTRIBUTION WIDTH 15.7 % (11.5-14.5)
[2017-04-27 18:06] VITALS: O2SAT 100
[2017-04-27 18:12] LABS: ALB/GLOB RATIO 1.6 (1.0-2.1); ALCOHOL SERUM < 10 mg/dl (0-10); ALKALINE PHOSPHATASE 57 U/L (38-126); ALT/SGPT 34 U/L (21-72); AST/SGOT 25 U/L (17-59); BILIRUBIN,TOTAL 0.3 mg/dl (0.2-1.3); BLOOD UREA NITROGEN 15 mg/dl (9-20); CALCIUM 9.2 mg/dL (8.4-10.2); CARBON DIOXIDE 24 mmol/L (22-30); CHLORIDE 105 mmol/L (98-107); GFR AFRICAN-AMERICAN > 60; GLUCOSE,RANDOM 90 mg/dL (75-110); SODIUM 138 mmol/l (132-148); TOTAL PROTEIN 6.8 G/DL (6.3-8.2)
--- NOTE | 2017-04-27 18:50 | ED PDOC ---
HPI: Psych/Substance Abuse Time Seen by Provider: 04/27/17 16:47 Chief Complaint (Nursing): Psychiatric Evaluation Chief Complaint (Provider): CRISIS EVAL History Per: Patient (46 Y/O MALE HERE FOR EVALUATION OF SUICIDAL IDEATION ASSOCIATED WITH DESIRE TO CUT SELF. PATIENT STATES HE ADDITIONALLY WOULD LIKE TO HURT OTHERS. STATES HE AWOKE ANGRY TODAY AND THIS TRIGGERED HIS SYMPTOMS. IS NOT ON ANY MEDICATIONS CURRENTLY. ) Past Medical History Reviewed: Historical Data, Nursing Documentation, Vital Signs Vital Signs: Last Vital Signs Temp 98.2 F 04/27/17 18:05 Pulse 84 04/27/17 18:05 Resp 16 04/27/17 18:05 BP 129/74 04/27/17 18:05 Pulse Ox 100 04/27/17 18:05 - Medical History PMH: Bipolar Disorder, HTN, Schizophrenia Denies: Diabetes, Hepatitis, HIV, Chronic Kidney Disease, Seizures, Sexually Transmitted Disease - Family History Family History: States: Unknown Family Hx - Immunization History Hx Tetanus Toxoid Vaccination: No Hx Influenza Vaccination: No Hx Pneumococcal Vaccination: No - Home Medications Home Medications: Ambulatory Orders Medication Instructions Recorded Lisinopril [Prinivil] 10 mg PO DAILY 04/27/17 Risperidone [Risperdal] 4 mg PO HS 04/27/17 traZODone [Desyrel] 100 mg PO HS 04/27/17 - Allergies Allergies/Adverse Reactions: Allergies Allergy/AdvReac Type Severity Reaction Status Date / Time No Known Allergies Allergy Verified 04/27/17 16:39 Review of Systems ROS Statement: Except As Marked, All Systems Reviewed And Found Negative Physical Exam - Reviewed Nursing Documentation Reviewed: Yes Vital Signs Reviewed: Yes - Physical Exam Appears: Positive for: Well, Non-toxic, No Acute Distress Head Exam: Positive for: ATRAUMATIC, NORMAL INSPECTION, NORMOCEPHALIC Skin: Positive for: Normal Color, Warm, DRY Eye Exam: Positive for: EOMI, Normal appearance, PERRL ENT: Positive for: Normal ENT Inspection Neck: Positive for: Normal, Painless ROM Cardiovascular/Chest: Positive for: Regular Rate, Rhythm Respiratory: Positive for: CNT, Normal Breath Sounds Gastrointestinal/Abdominal: Positive for: Normal Exam, Bowel Sounds, Soft Back: Positive for: Normal Inspection Extremity: Positive for: Normal ROM Neurologic/Psych: Positive for: Alert, Oriented - Laboratory Results Result Diagrams: 04/27/17 17:53 04/27/17 17:53 - ECG O2 Sat by Pulse Oximetry: 100 - Progress ED Course And Treament: SEEN BY CRISIS ADMITTED TO [facility] DIAGNOSIS SCHIZOAFFECTIVE DISORDER Disposition - Clinical Impression Clinical Impression: Schizoaffective disorder - Patient ED Disposition Is Patient to be Admitted: Yes - Disposition Disposition Time: 17:41 Condition: FAIR - Pt Status Changed To: Hospital Disposition Of: Inpatient - Admit Certification Admit to Inpatient:: After my assessment, the patient will require hospitalization for at least two midnights. This is because of the severity of symptoms shown, intensity of services needed, and/or the medical risk in this patient being treated as an outpatient.
[2017-04-27 18:51] LABS: RBC URINE 3 /hpf (0-3); URINE BILIRUBIN NEGATIVE (NEGATIVE); URINE BLOOD NEGATIVE (NEGATIVE); URINE COLOR YELLOW (YELLOW); URINE GLUCOSE (UA) NEG (Normal); URINE KETONE NEGATIVE (NEGATIVE); URINE LEUKOCYTE ESTERASE NEG Leu/uL (Negative); URINE PROTEIN NEGATIVE (NEGATIVE); URINE UROBILINOGEN 0.2-1.0 mg/dL (0.2-1.0); WBC URINE < 1 /hpf (0-5)
[2017-04-27] MEDS ORDERED: Magnesium Hydroxide Susp 30 ml UD PO PRN (20:36)
[2017-04-27] MEDS ORDERED: Alum-Mag Hydrox-Simethicone Susp (30 mL) PO PRN (20:36)
[2017-04-27] MEDS ORDERED: DiphenhydrAMINE 50 mg/ml Inj IM PRN (20:36)
[2017-04-28 09:29] LABS: T4 10.2 ug/dl (5.5-11.0)
[2017-04-28 09:43] LABS: THYROID STIMULATING HORMONE 0.71 mIU/ML (0.46-4.68)
--- NOTE | 2017-04-28 20:17 | CP.PCM.CON ---
<Myles Carvalho - Last Filed: 04/28/17 20:18> History of Present Illness - History of Present Illness History of Present Illness: 46 y/o male with a PMHx remarkable for depression, schizophrenia, anxiety, bipolar disorder, and HTN came to [facility] ED on 04/27 for evaluation. Pt reports he has been hearing voices that make him angry that makes him want to hurt himself and others. Reports this has been going on for 2-3 days now. Denies having a suicidal plan. Also reports seeing his decreased family recently as well. Denies auditory/visual hallucincations since yesterday. Denies any illicit drug/tobacco/ETOH abuse. No medical complaints. ROS: reports chronic ulceration on plantar surface of right great toe that has been worsening s/p wart removal. Remaining ROS negative. PMD: none PMHx: HTN, Bipolar, Depression, anxiety, schizophrenia Meds: as per med rec ALL: NKDA PsurgHx: none SocialHx: lives at a [facility], unemployed. Social ETOH (1 beer once in a while as per pt), Denies drugs/tobacco abuse FamilyHx: reports parents passed of [place], unsure of age, brother was a HD and passed from complications of DM. PE: Gen: AAOx3, pleasant mood, NAD HEENT: Atraumatic, EMOI, PERRLA, sclera nonicteric, conjuctiva clear, no cervical adenopathy, no carotid bruit, no JVD CVS: RRR, S1S2+, no MRG LUNGS: CTA B/L, A/P, no WRR ABD: +BS, soft, NT/ND, no organmegaly, no guarding/rigidity. EXT: pedal pulses 2+ throughout, no pedal edema, normal cap refill, right great toe with plantar ulceration/abrasion?, sensation intact NEURO: CN II-XII grossly intact Assessment: 46 y/o male with PMHx of depression, anxiety, schizophrenia, bipolar disorder and HTN admitted for schizoaffective disorder. Plan: 1) Schizoaffective Disorder -as per psych team 2) Hypertension (controlled) -c/w home meds: Lisinopril 10mg QD 3) Preventive: Lipid panel: total cholesterol 205, otherwise unremarkable HbA1c: pending RPR: neg 4) Ulceration of Right great toe on plantar surface -podiatry consult appreciated Medicine team will continue to follow as pt remains inhouse. Past Patient History - Infectious Disease Hx of Infectious Diseases: None - Tetanus Immunizations Tetanus Immunization: Unknown - Past Medical History & Family History Past Medical History?: Yes Past Family History: Reviewed and not pertinent - Past Social History Smoking Status: Never Smoked Alcohol: Occasional Drugs: Denies Home Situation {Lives}: Homeless - CARDIAC Hx Hypertension: Yes - PULMONARY Hx Respiratory Disorders: No Hx Tuberculosis: No - NEUROLOGICAL Hx Neurological Disorder: No Hx Seizures: No - HEENT Hx HEENT Problems: No - RENAL Hx Chronic Kidney Disease: No - ENDOCRINE/METABOLIC Hx Endocrine Disorders: No - HEMATOLOGICAL/ONCOLOGICAL Hx Blood Disorders: No Hx Human Immunodeficiency Virus (HIV): No - INTEGUMENTARY Hx Dermatological Problems: No - MUSCULOSKELETAL/RHEUMATOLOGICAL Hx Musculoskeletal Disorders: No - GASTROINTESTINAL Hx Gastrointestinal Disorders: No - GENITOURINARY/GYNECOLOGICAL Hx Genitourinary Disorders: No Hx Sexually Transmitted Disorders: No - PSYCHIATRIC Hx Depression: Yes Hx Schizophrenia: Yes Hx Substance Use: No (denied) - SURGICAL HISTORY Hx Surgeries: No - ANESTHESIA Hx Anesthesia: No Meds Allergies/Adverse Reactions: Allergies Allergy/AdvReac Type Severity Reaction Status Date / Time No Known Allergies Allergy Verified 04/27/17 16:39 - Medications Medications: Current Medications Acetaminophen (Tylenol 325mg Tab) 650 mg PO Q4 PRN PRN Reason: pain1-7,headache,dizziness Al Hydrox/Mg Hydrox/Simethicone (Maalox Plus 30 Ml) 30 ml PO Q4 PRN PRN Reason: Dyspepsia Diphenhydramine HCl (Benadryl) 50 mg IM Q6 PRN PRN Reason: Extrapyramidal S/S Unable PO Diphenhydramine HCl (Benadryl) 50 mg PO Q6 PRN PRN Reason: Extrapyramidal Symptoms Diphenhydramine HCl (Benadryl) 50 mg PO HS PRN PRN Reason: Sleep Haloperidol (Haldol) 5 mg PO Q4 PRN PRN Reason: Agitation Haloperidol Lactate (Haldol) 5 mg IM Q4 PRN PRN Reason: Agitation, Unable to Take PO Lorazepam (Ativan) 2 mg IM Q4 PRN PRN Reason: Anxiety/Agitation,Unable PO Lorazepam (Ativan) 2 mg PO Q4 PRN PRN Reason: Anxiety/Agitation Magnesium Hydroxide (Milk Of Magnesia) 30 ml PO HS PRN PRN Reason: Constipation Trazodone HCl (Desyrel) 100 mg PO HS PRN PRN Reason: insomia Results - Vital Signs Recent Vital Signs: Last Vital Signs Temp 97.7 F 04/28/17 09:40 Pulse 81 04/28/17 09:40 Resp 18 04/28/17 09:40 BP 131/81 04/28/17 09:40 Pulse Ox 100 04/27/17 20:00 - Labs Result Diagrams: 04/27/17 17:53 04/27/17 17:53 Labs: Laboratory Results - last 24 hr 04/28/17 04/28/17 08:54 08:54 Triglycerides 92 D Cholesterol 205 H LDL Cholesterol Direct 116 HDL Cholesterol 60 Thyroxine (T4) 10.2 Total T3 1.54 TSH 3rd Generation 0.71 RPR Nonreactive <Shayla Rader - Last Filed: 04/29/17 09:01> Meds - Medications Medications: Current Medications Acetaminophen (Tylenol 325mg Tab) 650 mg PO Q4 PRN PRN Reason: pain1-7,headache,dizziness Al Hydrox/Mg Hydrox/Simethicone (Maalox Plus 30 Ml) 30 ml PO Q4 PRN PRN Reason: Dyspepsia Diphenhydramine HCl (Benadryl) 50 mg IM Q6 PRN PRN Reason: Extrapyramidal S/S Unable PO Diphenhydramine HCl (Benadryl) 50 mg PO Q6 PRN PRN Reason: Extrapyramidal Symptoms Diphenhydramine HCl (Benadryl) 50 mg PO HS PRN PRN Reason: Sleep Haloperidol (Haldol) 5 mg PO Q4 PRN PRN Reason: Agitation Haloperidol Lactate (Haldol) 5 mg IM Q4 PRN PRN Reason: Agitation, Unable to Take PO Lisinopril (Zestril) 10 mg PO DAILY CLAUDIA Last Admin: 04/29/17 08:56 Dose: 10 mg Lorazepam (Ativan) 2 mg IM Q4 PRN PRN Reason: Anxiety/Agitation,Unable PO Lorazepam (Ativan) 2 mg PO Q4 PRN PRN Reason: Anxiety/Agitation Magnesium Hydroxide (Milk Of Magnesia) 30 ml PO HS PRN PRN Reason: Constipation Risperidone (Risperdal Tab) 4 mg PO HS CLAUDIA Last Admin: 04/28/17 21:17 Dose: 4 mg Trazodone HCl (Desyrel) 100 mg PO HS PRN PRN Reason: insomia Last Admin: 04/28/17 21:17 Dose: 100 mg Results - Vital Signs Recent Vital Signs: Last Vital Signs Temp 97.7 F 04/28/17 09:40 Pulse 92 H 04/29/17 08:56 Resp 18 04/28/17 09:40 BP 140/75 04/29/17 08:56 Pulse Ox 100 04/27/17 20:00 - Labs Result Diagrams: 04/27/17 17:53 04/27/17 17:53 Labs: Laboratory Results - last 24 hr 04/28/17 04/28/17 08:54 08:54 Triglycerides 92 D Cholesterol 205 H LDL Cholesterol Direct 116 HDL Cholesterol 60 Thyroxine (T4) 10.2 Total T3 1.54 TSH 3rd Generation 0.71 RPR Nonreactive Assessment & Plan - Assessment and Plan (Free Text) Assessment: ATTENDNING NOTE CHART REVIEWED. CASE DISCUSSED WITH RESIDENT. AGREE WITH PLAN.
--- NOTE | 2017-04-28 20:27 | PCM.PSYCH ---
Initial Psychiatric Evaluation - Initial Psychiatric Evaluation Chief Complaint (in patient's own words): pt reports was feeling overwhelmed, was feeling like he wanted to harm self but defers plan. came to er. Patient's Reaction to Hospitalization: voluntary History of Present Illness and Precipitating Events: Pt is a 46 year old AA male self referred to this ED due to suicidal ideations with a plan to "slit my throat with a razor". Pt is responding to internal stimuli. He reports he is in a "rage" and wants to hurt himself and others. Pt reports he tried to make himself feel better by "looking better" so he shaved his lynn off. Pt then took the razor and "snipped" his throat but stopped himself from fully cutting his throat because he was trying to "contain" himself. Pt reports he wants to hurt others, however, he does not have a plan at this time. Pt reports he has not slept or eaten anything in two days. Pt is a poor historian and unable to provide a lot of information regarding psych meds or hx. Pt reports he hears voices telling him to do bad things, however, he is unable to elaborate. He reports he stops himself from doing bad things because he feels his family members comforting him by placing their hand on his shoulder. Pt presents as angry as evidenced by his clenched fists and his pursed lips and scowl look. Pt also frequently stated that he is trying to "contain" himself but is having a difficult time. Pt reports he has several admissions in [place]. Pt has one prior [facility]. Pt reports he has lost all of his family members due to many different illnesses. Pt reports he still has 4 children but they are "grown" and he is trying to be independent from them. Pt reports he has had no appetite for the last two days. Pt presents with faded shoemaker of superficial lacerations Pt reports he punches holes in [place] and that is why all of his knuckles are bruised Current Medications: Active Medications Generic Name Dose Route Start Last Admin Trade Name Freq PRN Reason Stop Dose Admin Acetaminophen 650 mg 04/27/17 20:36 Tylenol 325mg Tab PO Q4 PRN pain1-7,headache,dizziness Al Hydrox/Mg Hydrox/Simethicone 30 ml 04/27/17 20:36 Maalox Plus 30 Ml PO Q4 PRN Dyspepsia Diphenhydramine HCl 50 mg 04/27/17 20:36 Benadryl IM Q6 PRN Extrapyramidal S/S Unable PO Diphenhydramine HCl 50 mg 04/27/17 20:36 Benadryl PO Q6 PRN Extrapyramidal Symptoms Diphenhydramine HCl 50 mg 04/27/17 20:43 Benadryl PO HS PRN Sleep Haloperidol 5 mg 04/27/17 20:36 Haldol PO Q4 PRN Agitation Haloperidol Lactate 5 mg 04/27/17 20:36 Haldol IM Q4 PRN Agitation, Unable to Take PO Lisinopril 10 mg 04/29/17 09:00 Zestril PO DAILY CLAUDIA Lorazepam 2 mg 04/27/17 20:36 Ativan IM Q4 PRN Anxiety/Agitation,Unable PO Lorazepam 2 mg 04/27/17 20:36 Ativan PO Q4 PRN Anxiety/Agitation Magnesium Hydroxide 30 ml 04/27/17 20:36 Milk Of Magnesia PO HS PRN Constipation Trazodone HCl 100 mg 04/27/17 20:43 Desyrel PO HS PRN insomia Past Psychiatric History - Past Psychiatric History History of ETOH/Drug Use: etoh last etoh 2 days ago History of Family Illness: multiple medical problems Pertinent Medical Hx (Current Medical&Sleep Prob, Allergies): Allergies Allergy/AdvReac Type Severity Reaction Status Date / Time No Known Allergies Allergy Verified 04/27/17 16:39 Lisinopril [Prinivil] 10 mg PO DAILY 04/27/17 Risperidone [Risperdal] 4 mg PO HS 04/27/17 traZODone [Desyrel] 100 mg PO HS 04/27/17 Review of Systems - Psychiatric Psychiatric: Abnormal Sleep Pattern, Irritability, Suicidal Ideation Mental Status Examination - Personal Presentation Personal Presentation: Looks stated age - Affect Affect: Constricted - Motor Activity Motor Activity: Psychomotor Retardation - Reliability in Providing Information Reliability in Providing Information: Fair - Mood Mood: Depressed, Anxious - Formal Thought Process Formal Thought Process: Hallucinations, Paranoia - Obsessions/Compulsions Obsessions: No Compulsions: No - Cognitive Functions Orientation: Person, Place, Situation, Time Sensorium: Alert Attention/Concentration: Attentive Abstract Thinking: [place] Judgement: Imparied, as evidence by: Other - Risk Risk: Homicidal, Self-mutilation Additional comments: harming others - Strength & Assets Inventory Strength & Assets Inventory: Cooperative (homeless) DSM 5 DX - DSM 5 DSM 5 Diagnosis: schizophrenia paranoid type substance use: etoh - Recommended/Plan of Treatment Treatment Recommendations and Plan of Treatment: admission per dr quezada vital signs and clinical observation per protocol and per clinical status restart medications prns per protocol hospitalist consult discharge planning in progress
--- NOTE | 2017-04-29 20:22 | PCM.PYCHPN ---
Psychiatric Progress Note - Psychiatric Progress Note Patient seen today, length of contact: chart reviewed case discussed with team Patient Chief Complaint: seen in room, staff report pt somewhat isolative at times, is seen about unit, does complete adls, reports feeling like a little safer. Problems Identified/Issues Discussed: alteration in mood alteration in thought process Medical Problems: pt being seen by hospitalist Diagnostic Results: per psychiatry per medicine per nursing per social work per recreational therapy DSM 5 Symptoms Update: alteration in mood alteration in thought process Medication Change: No Medical Record Reviewed: Yes Consults ordered or reviewed: pt being followed by hospitalist Mental Status Examination - Cognitive Function Orientation: Person, Place, Situation, Time Attention: WNL Concentration: WNL Association: WNL Fund of Knowledge: [facility] Decription of patient's judgement and insights: somewhat impaired - Mood Mood: Depressed, Anxious - Affect Affect: Constricted - Speech Speech: Soft - Formal Thought Process Formal Thought Process: Hallucinations, Paranoia - Homicidal Ideation Homicidal Ideation: Yes Goal/Treatment Plan - Goal/Treatment Plan Progress Toward Problem(s) and Goals/Treatment Plan: inpt milieu vital signs and clinical observation per protocol and per clinical status continue rispderal 4mg po hs (was started 04/28/17) adjust medications per protocol pt being followed by hospitalist discharge planning in progress Estimated Date of D/C: 05/04/17 - Smoking Cessation Smoking Cessation Initiated: No Reason for not providing: deferred
--- NOTE | 2017-04-30 09:18 | CP.PCM.PN ---
Subjective - Date & Time of Evaluation Date of Evaluation: 04/30/17 Time of Evaluation: 07:10 - Subjective Subjective: Patient seen and examined at bedside, in no acute distress. Denies chest pain, SOB, weakness or dizziness. Reports he is doing well, has a good appetite, normal urine and stool output. Reports his right big toe abrasion is chronic. Denies fever, chills, nausea or vomiting. Objective - Vital Signs/Intake and Output Vital Signs (last 24 hours): Temp Pulse Resp BP Pulse Ox 98.6 F 86 18 120/69 100 04/30/17 09:03 04/30/17 09:03 04/30/17 09:03 04/30/17 09:03 04/27/17 20:00 - Medications Medications: Current Medications Acetaminophen (Tylenol 325mg Tab) 650 mg PO Q4 PRN PRN Reason: pain1-7,headache,dizziness Al Hydrox/Mg Hydrox/Simethicone (Maalox Plus 30 Ml) 30 ml PO Q4 PRN PRN Reason: Dyspepsia Diphenhydramine HCl (Benadryl) 50 mg IM Q6 PRN PRN Reason: Extrapyramidal S/S Unable PO Diphenhydramine HCl (Benadryl) 50 mg PO Q6 PRN PRN Reason: Extrapyramidal Symptoms Diphenhydramine HCl (Benadryl) 50 mg PO HS PRN PRN Reason: Sleep Haloperidol (Haldol) 5 mg PO Q4 PRN PRN Reason: Agitation Haloperidol Lactate (Haldol) 5 mg IM Q4 PRN PRN Reason: Agitation, Unable to Take PO Lisinopril (Zestril) 10 mg PO DAILY [facility] Last Admin: 04/29/17 08:56 Dose: 10 mg Lorazepam (Ativan) 2 mg IM Q4 PRN PRN Reason: Anxiety/Agitation,Unable PO Lorazepam (Ativan) 2 mg PO Q4 PRN PRN Reason: Anxiety/Agitation Magnesium Hydroxide (Milk Of Magnesia) 30 ml PO HS PRN PRN Reason: Constipation Risperidone (Risperdal Tab) 4 mg PO HS [facility] Last Admin: 04/29/17 22:05 Dose: 4 mg Trazodone HCl (Desyrel) 100 mg PO HS PRN PRN Reason: insomia Last Admin: 04/28/17 21:17 Dose: 100 mg - Labs Labs: 04/27/17 17:53 04/27/17 17:53 - Constitutional Appears: Non-toxic, No Acute Distress - Head Exam Head Exam: ATRAUMATIC, NORMOCEPHALIC - Eye Exam Eye Exam: EOMI, PERRL - ENT Exam ENT Exam: Mucous Membranes Moist - Neck Exam Neck Exam: Full ROM. absent: Lymphadenopathy - Respiratory Exam Respiratory Exam: Clear to Ausculation Bilateral, NORMAL BREATHING PATTERN - Cardiovascular Exam Cardiovascular Exam: REGULAR RHYTHM, +S1, +S2 - GI/Abdominal Exam GI & Abdominal Exam: Soft. absent: Distended, Tenderness - Extremities Exam Extremities Exam: Full ROM (ecchymosis 1st digit-right foot, plantar side, nontender, no drainagem no open lesions), Normal Capillary Refill. absent: Calf Tenderness, Joint Swelling, Pedal Edema - Back Exam Back Exam: absent: CVA tenderness (L), CVA tenderness (R) - Neurological Exam Neurological Exam: Alert, Awake, CN II-XII Intact - Psychiatric Exam Psychiatric exam: Depressed, Flat Affect. absent: Homicidal Ideation, Suicidal Ideation - Skin Skin Exam: Dry, Intact, Warm Assessment and Plan - Assessment and Plan (Free Text) Assessment: 46 yr old M with PMHx of depression, anxiety, schizophrenia, bipolar disorder and HTN admitted for acute management of schizophrenia paranoid type. Patient is stable from medical point of view. Plan: Schizophrenia Paranoid Type -as per psych team Hypertension -controlled, chronic -continue home med: Lisinopril 10mg QD Preventive Lipid panel: total cholesterol 205, otherwise unremarkable HbA1c: 5.5 RPR: neg Ulceration of Right great toe on plantar surface -podiatry consult appreciated: Dr. Green-will follow recommendations
--- NOTE | 2017-04-30 12:22 | PCM.PYCHPN ---
Psychiatric Progress Note - Psychiatric Progress Note Patient seen today, length of contact: discussed with team Patient Chief Complaint: i feel my issues are being addressed here Problems Identified/Issues Discussed: pt attending groups. pt states he is feeling much better than prior to admission. he denied any medication side effects. he is pleasant. he wants to be referred to outpatient treatment. Medication Change: No Medical Record Reviewed: Yes Mental Status Examination - Cognitive Function Orientation: Person, Place, Situation, Time Attention: WNL Concentration: WNL Association: WNL Fund of Knowledge: [facility] Decription of patient's judgement and insights: fair - Mood Mood: Depressed, Anxious - Affect Affect: Constricted - Speech Speech: Soft - Formal Thought Process Formal Thought Process: Paranoia Psychotic Thoughts and Behaviors: denies a/v hallucinations currently - Suicidal Ideation Suicidal Ideation: No - Homicidal Ideation Homicidal Ideation: No Goal/Treatment Plan - Goal/Treatment Plan Need for Continued Stay: Remain at risks for inpatient hospitalization, Discharge may exacerbated symptoms Progress Toward Problem(s) and Goals/Treatment Plan: schizophrenia needs further treatment will continue current medications disposition planning Estimated Date of D/C: 05/04/17
--- NOTE | 2017-04-30 23:32 | CP.PCM.CON ---
History of Present Illness - History of Present Illness History of Present Illness: 46 year old male patient with PMHx HTN, alcohol abuse, schizophrenia, seen at bedside for a podiatry consult. Patient is complaining of a painful wart to the bottom of his right great toe. Patient is seen resting comfortably in bed, AAOx3 and NAD. Patient states that he has had this wart for the past month or so , and developed it while he was staying at a group home. Patient has been going to the podiatry clinic regularly for treatment of wart. Patient states that he was given a prescription for the wart but he has not be able to use it in the psych unit. Patient reports mild pain to the bottom of his right great toe today. Patient states that he finds relief when the wart is trimmed down. Patient denies N/V/F/D/C/SOB. No other pedal complaints at this time. PMHx: HTN, schizophrenia, alcohol abuse, cocaine abuse PSH: unknown Meds:see home meds list FH: unknown All: NKDA Review of Systems - Review of Systems All systems: reviewed and no additional remarkable complaints except (as per HPI ) Past Patient History - Infectious Disease Hx of Infectious Diseases: None - Tetanus Immunizations Tetanus Immunization: Unknown - Past Medical History & Family History Past Medical History?: Yes Past Family History: Reviewed and not pertinent - Past Social History Smoking Status: Never Smoked Alcohol: Occasional Drugs: Denies Home Situation {Lives}: Homeless - CARDIAC Hx Hypertension: Yes - PULMONARY Hx Respiratory Disorders: No Hx Tuberculosis: No - NEUROLOGICAL Hx Neurological Disorder: No Hx Seizures: No - HEENT Hx HEENT Problems: No - RENAL Hx Chronic Kidney Disease: No - ENDOCRINE/METABOLIC Hx Endocrine Disorders: No - HEMATOLOGICAL/ONCOLOGICAL Hx Blood Disorders: No Hx Human Immunodeficiency Virus (HIV): No - INTEGUMENTARY Hx Dermatological Problems: No - MUSCULOSKELETAL/RHEUMATOLOGICAL Hx Musculoskeletal Disorders: No - GASTROINTESTINAL Hx Gastrointestinal Disorders: No - GENITOURINARY/GYNECOLOGICAL Hx Genitourinary Disorders: No Hx Sexually Transmitted Disorders: No - PSYCHIATRIC Hx Depression: Yes Hx Schizophrenia: Yes Hx Substance Use: No (denied) - SURGICAL HISTORY Hx Surgeries: No - ANESTHESIA Hx Anesthesia: No Meds Allergies/Adverse Reactions: Allergies Allergy/AdvReac Type Severity Reaction Status Date / Time No Known Allergies Allergy Verified 04/27/17 16:39 - Medications Medications: Current Medications Acetaminophen (Tylenol 325mg Tab) 650 mg PO Q4 PRN PRN Reason: pain1-7,headache,dizziness Al Hydrox/Mg Hydrox/Simethicone (Maalox Plus 30 Ml) 30 ml PO Q4 PRN PRN Reason: Dyspepsia Diphenhydramine HCl (Benadryl) 50 mg IM Q6 PRN PRN Reason: Extrapyramidal S/S Unable PO Diphenhydramine HCl (Benadryl) 50 mg PO Q6 PRN PRN Reason: Extrapyramidal Symptoms Diphenhydramine HCl (Benadryl) 50 mg PO HS PRN PRN Reason: Sleep Haloperidol (Haldol) 5 mg PO Q4 PRN PRN Reason: Agitation Haloperidol Lactate (Haldol) 5 mg IM Q4 PRN PRN Reason: Agitation, Unable to Take PO Lisinopril (Zestril) 10 mg PO DAILY [facility] Last Admin: 04/30/17 09:53 Dose: 10 mg Lorazepam (Ativan) 2 mg IM Q4 PRN PRN Reason: Anxiety/Agitation,Unable PO Lorazepam (Ativan) 2 mg PO Q4 PRN PRN Reason: Anxiety/Agitation Magnesium Hydroxide (Milk Of Magnesia) 30 ml PO HS PRN PRN Reason: Constipation Risperidone (Risperdal Tab) 4 mg PO HS [facility] Last Admin: 04/30/17 21:24 Dose: 4 mg Trazodone HCl (Desyrel) 100 mg PO HS PRN PRN Reason: insomia Last Admin: 04/30/17 22:03 Dose: 100 mg Physical Exam - Constitutional Appears: Well, Non-toxic, No Acute Distress - Extremities Exam Additional comments: RLE focused physical exam: Vasc: DP and Pt pulses palpable 2/4. CFT <3 seconds to all digits x5. TG warm to warm. No edema noted. No increase in warmth to right hallux. Neuro: Gross sensation intact. Derm: 2cm x 1.8cm brown-black colored lesion noted to plantar aspect of hallux, extending from hallucal MPJ to distal to IPJ. Upon sharp debridement, dark layer of discoloration was removed, revealing skin WNL and 0.5 cm plantar verrucae. Ortho: pain on palpation to plantar verrucae. No pain upon ROM 1st MPJ or 1st IPJ. - Neurological Exam Neurological exam: Alert, Oriented x3 - Psychiatric Exam Psychiatric exam: Normal Affect, Normal Mood Results - Vital Signs Recent Vital Signs: Last Vital Signs Temp 97.7 F 04/30/17 17:00 Pulse 75 04/30/17 17:00 Resp 20 04/30/17 17:00 BP 143/88 04/30/17 17:00 Pulse Ox 100 04/27/17 20:00 - Labs Result Diagrams: 04/27/17 17:53 04/27/17 17:53 Assessment & Plan - Assessment and Plan (Free Text) Assessment: 46 year old male with plantar verrucae to right hallux Plan: Patient seen and evaluated at bedside Discussed with attending, Dr. Ellis Chart, labs, vitals reviewed = afebrile Using a #15 blade, brown-black hyperkeratotic lesion sharply pared without incident and to patient satisfaction. Hyperkeratotic rim of plantar verrucae was then debrided. Patient advised use Rx that was given to him in podiatry clinic. Patient may follow up for regular care to [facility] in podiatry clinic as an outpatient. Stable from podiatry standpoint. Podiatry will sign off on this patient. Thank you for this consult, please reconsult podiatry as needed. - Date & Time Date: 04/30/17 Time: 17:00
--- NOTE | 2017-05-01 13:21 | PCM.PYCHPN ---
Psychiatric Progress Note - Psychiatric Progress Note Patient seen today, length of contact: discussed with team Patient Chief Complaint: i feel better Problems Identified/Issues Discussed: pt participating in groups. denies medication side effects. thoughts are organized, he is guarded/evasive with this commercial underwriter Medication Change: No Medical Record Reviewed: Yes Mental Status Examination - Cognitive Function Orientation: Person, Place, Situation, Time Attention: WNL Concentration: WNL Association: WNL Fund of Knowledge: [facility] Decription of patient's judgement and insights: fair - Mood Mood: Depressed, Anxious - Affect Affect: Constricted - Speech Speech: Soft - Formal Thought Process Formal Thought Process: Paranoia Psychotic Thoughts and Behaviors: denies a/v hallucinations currently - Suicidal Ideation Suicidal Ideation: No - Homicidal Ideation Homicidal Ideation: No Goal/Treatment Plan - Goal/Treatment Plan Need for Continued Stay: Remain at risks for inpatient hospitalization, Discharge may exacerbated symptoms Progress Toward Problem(s) and Goals/Treatment Plan: schizophrenia needs further treatment will continue current medications at same dose disposition planning Estimated Date of D/C: 05/04/17
--- NOTE | 2017-05-02 08:28 | CP.PCM.PN ---
Subjective - Date & Time of Evaluation Date of Evaluation: 05/02/17 Time of Evaluation: 07:30 - Subjective Subjective: Patient seen and examined at bedside. In no acute distress. Reports he is doing well, podiatry came by to see him and he is no longer concerned about his right big toe, he will follow up with them as outpatient. Denies chest pain, SOB , weakness or dizziness. Objective - Vital Signs/Intake and Output Vital Signs (last 24 hours): Temp Pulse Resp BP Pulse Ox 97.6 F 86 18 120/76 100 05/01/17 16:37 05/01/17 16:37 05/01/17 16:37 05/01/17 16:37 04/27/17 20:00 - Medications Medications: Current Medications Acetaminophen (Tylenol 325mg Tab) 650 mg PO Q4 PRN PRN Reason: pain1-7,headache,dizziness Al Hydrox/Mg Hydrox/Simethicone (Maalox Plus 30 Ml) 30 ml PO Q4 PRN PRN Reason: Dyspepsia Diphenhydramine HCl (Benadryl) 50 mg IM Q6 PRN PRN Reason: Extrapyramidal S/S Unable PO Diphenhydramine HCl (Benadryl) 50 mg PO Q6 PRN PRN Reason: Extrapyramidal Symptoms Diphenhydramine HCl (Benadryl) 50 mg PO HS PRN PRN Reason: Sleep Haloperidol (Haldol) 5 mg PO Q4 PRN PRN Reason: Agitation Haloperidol Lactate (Haldol) 5 mg IM Q4 PRN PRN Reason: Agitation, Unable to Take PO Lisinopril (Zestril) 10 mg PO DAILY [facility] Last Admin: 05/01/17 08:32 Dose: 10 mg Lorazepam (Ativan) 2 mg IM Q4 PRN PRN Reason: Anxiety/Agitation,Unable PO Lorazepam (Ativan) 2 mg PO Q4 PRN PRN Reason: Anxiety/Agitation Magnesium Hydroxide (Milk Of Magnesia) 30 ml PO HS PRN PRN Reason: Constipation Risperidone (Risperdal Tab) 4 mg PO HS [facility] Last Admin: 05/01/17 21:29 Dose: 4 mg Trazodone HCl (Desyrel) 100 mg PO HS PRN PRN Reason: insomia Last Admin: 05/01/17 21:29 Dose: 100 mg - Labs Labs: 04/27/17 17:53 04/27/17 17:53 - Constitutional Appears: Non-toxic, No Acute Distress - Head Exam Head Exam: ATRAUMATIC, NORMOCEPHALIC - Eye Exam Eye Exam: EOMI, PERRL - ENT Exam ENT Exam: Mucous Membranes Moist - Neck Exam Neck Exam: Full ROM - Respiratory Exam Respiratory Exam: Clear to Ausculation Bilateral, NORMAL BREATHING PATTERN - Cardiovascular Exam Cardiovascular Exam: REGULAR RHYTHM - GI/Abdominal Exam GI & Abdominal Exam: Soft, Normal Bowel Sounds - Extremities Exam Extremities Exam: Full ROM, Normal Inspection. absent: Pedal Edema - Back Exam Back Exam: absent: CVA tenderness (L), CVA tenderness (R) - Neurological Exam Neurological Exam: Alert, Awake, CN II-XII Intact - Psychiatric Exam Psychiatric exam: Flat Affect - Skin Skin Exam: Dry, Intact, Warm Assessment and Plan - Assessment and Plan (Free Text) Assessment: 46 yr old M with PMHx of depression, anxiety, schizophrenia, bipolar disorder and HTN admitted for acute management of schizophrenia paranoid type. Patient is stable from medical point of view. Plan: Schizophrenia Paranoid Type -as per psych team Hypertension -controlled, chronic -continue home med: Lisinopril 10mg QD Preventive Lipid panel: total cholesterol 205, otherwise unremarkable HbA1c: 5.5 RPR: neg Ulceration of Right great toe on plantar surface -resolved , per podiatry: discolored skin removed from right hallux on plantar surface, skin underneath wnl -podiatry consulted: patient will follow up as outpatient in Podiatry clinic Patient is stable from medical point of view. Will now sign off on the case. Please re-consult as needed.
--- NOTE | 2017-05-02 15:20 | PCM.PYCHPN ---
Psychiatric Progress Note - Psychiatric Progress Note Patient seen today, length of contact: in treatment team Patient Chief Complaint: i feel excellent Problems Identified/Issues Discussed: pt participating in groups. denies medication side effects. thoughts are organized, he states he is feeling much better and reports he wants to return to his [place] [facility] after discharge. he states he wants to go home today or tomorrow. Medication Change: No Medical Record Reviewed: Yes Mental Status Examination - Cognitive Function Orientation: Person, Place, Situation, Time Attention: WNL Concentration: WNL Association: WNL Fund of Knowledge: [facility] Decription of patient's judgement and insights: fair - Mood Mood: Neutral - Affect Affect: Broad - Speech Speech: Appropriate - Formal Thought Process Formal Thought Process: No Impairment Psychotic Thoughts and Behaviors: denies a/v hallucinations currently - Suicidal Ideation Suicidal Ideation: No - Homicidal Ideation Homicidal Ideation: No Goal/Treatment Plan - Goal/Treatment Plan Need for Continued Stay: Remain at risks for inpatient hospitalization, Discharge may exacerbated symptoms Progress Toward Problem(s) and Goals/Treatment Plan: schizophrenia needs further treatment will continue current medications at same dose disposition planning- discharge tomorrow Estimated Date of D/C: 05/04/17
[2017-05-02 16:43] VITALS: TEMP 97.7
[2017-05-03 09:37] VITALS: BP 113/66
--- NOTE | 2017-05-03 10:06 | PCM.PYCHDC ---
Mental Status Examination - Mental Status Examination Orientation: Person, Place, Situation, Time Memory: Intact Mood: Neutral Affect: Broad Speech: Appropriate Attention: WNL Concentration: WNL Association: WNL Fund of Knowledge: WNL Formal Thought Process: No Impairment Description of patient's judgement and insight: fair Psychotic Thoughts and Behaviors: denies a/v hallucinations currently Suicidal Ideation: No Current Homicidal Ideation?: No Plan: pt denies any suicidal or homicidal thoughts/plan or intent Discharge Summary - Discharge Note Reason for Hospitalization: hallucinations, depression suicidal thoughts Psychiatric History (includes Medical, Family, Personal Hx): history of schizophrenia Consultations:: List each consultation separately and include: 1. Reason for request. 2. Findings. 3. Follow-up Consultations: seen by medical secretary receptionist Summary of Hospital Course include:: 1. Description of specific treatment plan utilized for patients during their course of treatmen. 2. Summarize the time- course for resolution of acute symptoms and/or regressed behaviors. 3. Describe issues identified and worked on during hospitalization. 4. Describe medication utilized. 5. Describe medical problems identified and treated. 6. Reassessment of suicide risk Summary of Hospital Course: pt was admitted to [facility] and oriented to the unit. pt was placed on routine safety protocols and was seen by the medical secretary receptionist. pt was started on his previous medications. his psychotic symptoms improved. he participated in groups and was goal directed and future oriented at the time of discharge. pt was offered a referral to a partial hospital program but pt states he preferred to be referred back to the [facility] program. at the time of discharge he was denying suicidal or homicidal thoughts. - Final Diagnosis (DSM 5) Condition upon Discharge: FAIR DSM 5: schizophrenia, paranoid type Disposition: HOME/ ROUTINE Follow-up Treatment Plan: follow up with aftercare as directed take medications as prescribed do not use alcohol, tobacco or other illicit substances call 911 if any suicidal or homicidal thoughts Prescriptions/Medication Reconciliation: Lisinopril [Prinivil] 10 mg PO DAILY #30 Risperidone [Risperdal] 4 mg PO HS #60 traZODone [Desyrel] 100 mg PO HS PRN #100 tab PRN Reason: insomia - Smoking Cessation Smoking Cessation Medication prescribed: No Reason for not providing: declines - Antipsychotic Medications Pt discharged on 2 or more routine antipsychotic medications: No
[2017-05-03 14:25] VITALS: PULSE 86; RESP 16
--- NOTE | 2017-05-04 11:30 | PQF DEBRID ---
Dr. Santoyo debridement of verrucae rt hallux was performed on 04/30. Was debridement excisional or nonexcisional? This form is a permanent part of the medical record Clarification of your documentation is requested to better reflect the severity of illness and intensity of treatment of your patient. Indicators present [x] Documentation of wound care / debridement [] Technique: Sharp debridement [] Instrument used:#15 blade [] Nature of Tissue Removed:skin [] Appearance of Wound:verrucae excised, pinpoint bleeding [] Size of Wound: 1 x 1 cm [] Depth of Debridement: superficial [] Other: [] Location in the medical record that reflects the above clinical findings: [] Other Treatment Provided: [] PHYSICIAN'S RESPONSE Based on your medical judgment, can you further clarify the precise NATURE, DEPTH, EXTENT and / or METHODS of wound debridement utilized in this case: [x] EXCISIONAL debridement use of a scalpel / blade to cut away tissue Depth (subcutaneous, fascia, muscle, soft tissue and bone) [x] Size of Wound_1 x 1 cm [] NON-EXCISIONAL debridement chemical, scrubbing, trimming with a scissor/ versajet [] Other, please indicate: [] [] If unable to determine, please check the box, sign and date. In responding to this query, please exercise your independent professional judgment. The fact that a question is asked does not imply that any particular answer is desired or expected. Thank you for your clarification on this documentation. If you have any questions please call:[ ] * Thank you, [ ]Tanisha Francis c2 tactical analysis technician JUAN
== END 2017-05-03 14:29 | disposition home or self-care (01) | DRG 424 ==
LOC: H.ER 16:27 → H.ERHOLD 17:41 → H.PSYCH 20:08
PROVIDERS: ADMIT Psychiatry & Neurology Psychiatry; ATTEND Psychiatry & Neurology Psychiatry
PROC: GZHZZZZ Group Psychotherapy (ICD-10-PCS; principal; 2017-04-27)
PROC: 0HBMXZZ Excision of Right Foot Skin, External Approach (ICD-10-PCS; 2017-04-30)
DX: F20.0 Paranoid schizophrenia (principal); R45.851 Suicidal ideations; Z59.0 Homelessness; I10 Essential (primary) hypertension; B07.9 Viral wart, unspecified

== ENCOUNTER 2017-06-15 20:20 | Emergency (ER) | payer MEDICAID ==
[2017-06-15 20:20] VITALS: BMI 23.3
[2017-06-15 20:28] VITALS: BP 135/89; PULSE 84; RESP 16; TEMP 98.1; O2SAT 100
--- NOTE | 2017-06-15 21:12 | ED PDOC ---
Lower Extremity Pain/Injury Time Seen by Provider: 06/15/17 20:43 Chief Complaint (Nursing): Lower Extremity Problem/Injury Chief Complaint (Provider): Ankle and posterior leg pain History Per: Patient Current Symptoms Are (Timing): Still Present Additional Complaint(s): Bradly Doherty, a 46 year old male, presents to the ED complaining of ankle and posterior lower leg pain x2-3 months. The patient states that the pain worsens with weight bearing. He states that he has taken aleve which has offered minimal relief. Patient reports that his last doctors visit was 1 year ago and at that time he had a full physical performed and everything came back normal. PMD: [facility] Past Medical History Reviewed: Historical Data, Nursing Documentation, Vital Signs Vital Signs: Last Vital Signs Temp 98.1 F 06/15/17 20:25 Pulse 84 06/15/17 20:25 Resp 16 06/15/17 20:25 BP 135/89 06/15/17 20:25 Pulse Ox 100 06/15/17 20:25 - Medical History PMH: Bipolar Disorder, Depression, HTN, Schizophrenia Denies: Diabetes, Hepatitis, HIV, Chronic Kidney Disease, Seizures, Sexually Transmitted Disease - Surgical History Surgical History: No Surg Hx - Family History Family History: States: Unknown Family Hx - Social History Alcohol: None Drugs: Denies - Immunization History Hx Tetanus Toxoid Vaccination: No Hx Influenza Vaccination: No Hx Pneumococcal Vaccination: No - Home Medications Home Medications: Ambulatory Orders Medication Instructions Recorded Lisinopril [Prinivil] 10 mg PO DAILY #30 05/03/17 Risperidone [Risperdal] 4 mg PO HS #60 05/03/17 traZODone [Desyrel] 100 mg PO HS PRN #100 tab 05/03/17 - Allergies Allergies/Adverse Reactions: Allergies Allergy/AdvReac Type Severity Reaction Status Date / Time No Known Allergies Allergy Verified 06/15/17 20:25 Review of Systems Musculoskeletal: Positive for: Leg Pain (posterior leg pain), Other (Ankle pain) Physical Exam - Reviewed Nursing Documentation Reviewed: Yes Vital Signs Reviewed: Yes - Physical Exam Appears: Positive for: Non-toxic, No Acute Distress Head Exam: Positive for: ATRAUMATIC, NORMAL INSPECTION, NORMOCEPHALIC Skin: Positive for: Normal Color, Warm, Dry. Negative for: Rash Eye Exam: Positive for: Normal appearance, EOMI, PERRL. Negative for: Nystagmus Cardiovascular/Chest: Positive for: Regular Rate, Rhythm, Chest Non Tender. Negative for: Tachycardia Respiratory: Positive for: Normal Breath Sounds. Negative for: Rales, Rhonchi, Wheezing, Respiratory Distress Extremity: Positive for: Normal ROM (Full ROM of lower extremities), Tenderness (Posterior lower leg tenderness with ankle dorsal and flexion.). Negative for: Calf Tenderness, Deformity, Swelling Neurologic/Psych: Positive for: Alert, Oriented - ECG O2 Sat by Pulse Oximetry: 100 (RA) Pulse Ox Interpretation: Normal Medical Decision Making Medical Decision Makin Initial Impression: 46 year old male presenting with ankle and posterior right leg pain Initial Plan: * Scribe Attestation Documented by Pauly Garcia acting as a scribe for Tory Rosario PA-C. Scribe Attestation All medical record entries made by the Scribe were at my direction and personally dictated by me. I have reviewed the chart and agree that the record accurately reflects my personal performance of the history, physical exam, medical decision making, and the department course for this patient. I have also personally directed, reviewed, and agree with the discharge instructions and disposition. Disposition - Disposition Forms: [employer] (Swedish)
[2017-06-15] MEDS ORDERED: Oxycodone/Acetaminophen 5/325 mg Tab PO STA (21:36)
[2017-06-15] MEDS ORDERED: Oxycodone/Acetaminophen 5/325 mg Tab ONE (21:42)
--- NOTE | 2017-06-15 22:34 | ED PDOC ---
Lower Extremity Pain/Injury Time Seen by Provider: 06/15/17 20:43 Chief Complaint (Nursing): Lower Extremity Problem/Injury Chief Complaint (Provider): Wart on right great toe - Pain History Per: Patient History/Exam Limitations: no limitations Onset/Duration Of Symptoms: Days Current Symptoms Are (Timing): Still Present Severity: Severe Pain Scale Rating Of: 8 Additional Complaint(s): Pt states motrin is not working. Pt had wart removed approx 1 month ago at podiatry clinic but states now the area is painful. Past Medical History Reviewed: Historical Data, Nursing Documentation, Vital Signs Vital Signs: Last Vital Signs Temp 98.1 F 06/15/17 20:25 Pulse 84 06/15/17 20:25 Resp 16 06/15/17 20:25 BP 135/89 06/15/17 20:25 Pulse Ox 100 06/15/17 20:25 - Medical History PMH: Bipolar Disorder, Depression, HTN, Schizophrenia Denies: Diabetes, Hepatitis, HIV, Chronic Kidney Disease, Seizures, Sexually Transmitted Disease - Surgical History Surgical History: No Surg Hx - Family History Family History: States: Unknown Family Hx - Living Arrangements Living Arrangements: With Family - Social History Current smoker - smoking cessation education provided: No Alcohol: None Drugs: Denies - Immunization History Hx Tetanus Toxoid Vaccination: No Hx Influenza Vaccination: No Hx Pneumococcal Vaccination: No - Home Medications Home Medications: Ambulatory Orders Medication Instructions Recorded Lisinopril [Prinivil] 10 mg PO DAILY #30 05/03/17 Risperidone [Risperdal] 4 mg PO HS #60 05/03/17 traZODone [Desyrel] 100 mg PO HS PRN #100 tab 05/03/17 oxyCODONE/Acetaminophen [Percocet 1 ea PO Q6H PRN #10 tab 06/15/17 5/325 mg Tab] - Allergies Allergies/Adverse Reactions: Allergies Allergy/AdvReac Type Severity Reaction Status Date / Time No Known Allergies Allergy Verified 06/15/17 20:25 Review of Systems ROS Statement: Except As Marked, All Systems Reviewed And Found Negative Constitutional: Negative for: Fever, Chills Musculoskeletal: Positive for: Foot Pain Physical Exam - Reviewed Nursing Documentation Reviewed: Yes Vital Signs Reviewed: Yes - Physical Exam Appears: Positive for: Well, Non-toxic, No Acute Distress Head Exam: Positive for: ATRAUMATIC, NORMAL INSPECTION, NORMOCEPHALIC Skin: Positive for: Warm. Negative for: Normal Color (Wart, bottom of right great toe ) Eye Exam: Positive for: Normal appearance ENT: Positive for: Normal ENT Inspection Neck: Positive for: Normal, Painless ROM Respiratory: Negative for: Accessory Muscle Use, Respiratory Distress Gastrointestinal/Abdominal: Positive for: Normal Exam, Bowel Sounds, Soft Back: Positive for: Normal Inspection Extremity: Positive for: Normal ROM Neurologic/Psych: Positive for: Alert, Oriented - ECG O2 Sat by Pulse Oximetry: 100 Disposition - Clinical Impression Clinical Impression: Wart - Patient ED Disposition Is Patient to be Admitted: No Counseled Patient/Family Regarding: Diagnosis, Need For Followup - Disposition Referrals: Podiatry Clinic [Outside] Disposition: Routine/Home Disposition Time: 22:34 Condition: GOOD Prescriptions: oxyCODONE/Acetaminophen [Percocet 5/325 mg Tab] 1 ea PO Q6H PRN #10 tab PRN Reason: Pain, Severe (8-10) Instructions: Bora Rosado (ED) Forms: [employer] (Afghan)
== END 2017-06-15 22:43 | disposition home or self-care (01) ==
LOC: H.ER 20:20
DX: B07.9 Viral wart, unspecified (principal); F20.9 Schizophrenia, unspecified; F31.9 Bipolar disorder, unspecified; I10 Essential (primary) hypertension

== ENCOUNTER 2017-07-13 20:12 | Emergency (ER) | payer MEDICAID ==
[2017-07-13 20:13] VITALS: BMI 24.2
[2017-07-13 20:23] VITALS: BP 165/95; PULSE 94; RESP 18; TEMP 98.7; O2SAT 99
--- NOTE | 2017-07-13 21:04 | ED PDOC ---
HPI: Psych/Substance Abuse Time Seen by Provider: 07/13/17 20:51 Chief Complaint (Nursing): Psychiatric Evaluation Chief Complaint (Provider): Crisis eval History Per: Patient Additional Complaint(s): Pt c/o headache and reports hearing voices "telling me to hurt myself and other people/I cant be with anybody" x 1 day. Admits to suicidal ideaton with plan of "jumping in front of a train" . No homicidal ideations. no physical complaints Past Medical History Reviewed: Nursing Documentation, Vital Signs Vital Signs: Last Vital Signs Temp 98.7 F 07/13/17 20: Pulse 94 H 07/13/17 20:17 Resp 18 07/13/17 20:17 BP 165/95 H 07/13/17 20: Pulse Ox 99 07/13/17 20:17 - Medical History PMH: Bipolar Disorder, Depression, HTN, Schizophrenia Denies: Diabetes, Hepatitis, HIV, Chronic Kidney Disease, Seizures, Sexually Transmitted Disease - Family History Family History: States: Unknown Family Hx - Immunization History Hx Tetanus Toxoid Vaccination: No Hx Influenza Vaccination: No Hx Pneumococcal Vaccination: No - Home Medications Home Medications: Ambulatory Orders Medication Instructions Recorded Lisinopril [Prinivil] 10 mg PO DAILY #30 05/03/17 Risperidone [Risperdal] 4 mg PO HS #60 05/03/17 traZODone [Desyrel] 100 mg PO HS PRN #100 tab 05/03/17 oxyCODONE/Acetaminophen [Percocet 1 ea PO Q6H PRN #10 tab 06/15/17 5/325 mg Tab] - Allergies Allergies/Adverse Reactions: Allergies Allergy/AdvReac Type Severity Reaction Status Date / Time No Known Allergies Allergy Verified 06/15/17 20:25 Review of Systems ROS Statement: Except As Marked, All Systems Reviewed And Found Negative Physical Exam - Reviewed Nursing Documentation Reviewed: Yes Vital Signs Reviewed: Yes - Physical Exam Appears: Positive for: Well, Non-toxic, No Acute Distress Head Exam: Positive for: ATRAUMATIC, NORMAL INSPECTION, NORMOCEPHALIC Skin: Positive for: Normal Color, Warm, DRY Eye Exam: Positive for: EOMI, Normal appearance, PERRL ENT: Positive for: Normal ENT Inspection Neck: Positive for: Normal, Painless ROM Cardiovascular/Chest: Positive for: Regular Rate, Rhythm Respiratory: Positive for: CNT, Normal Breath Sounds Gastrointestinal/Abdominal: Positive for: Normal Exam, Bowel Sounds, Soft Back: Positive for: Normal Inspection Extremity: Positive for: Normal ROM Neurologic/Psych: Positive for: Alert, Oriented - Laboratory Results Result Diagrams: 07/13/17 21:22 07/13/17 21:22 - ECG O2 Sat by Pulse Oximetry: 99 Medical Decision Making Medical Decision Making: Pt underwent crisis eval, see notes. Disposition - Clinical Impression Clinical Impression: Schizoaffective disorder, Cocaine abuse - Patient ED Disposition Is Patient to be Admitted: No - Disposition Disposition: Routine/Home Disposition Time: 22:00 Condition: STABLE Instructions: Cocaine Abuse (ED), Schizoaffective Disorder (ED) Forms: [employer] (Slovak) - POA Present On Arrival: None
[2017-07-13 21:29] LABS: BASO # 0.1 K/uL (0.0-0.2); BASO % 0.9 % (0.0-2.0); EOS # 0.1 K/uL (0.0-0.7); EOS % 2.3 % (0.0-4.0); HEMATOCRIT 39.3 % (35.0-51.0); LYMPH # 2.4 K/uL (1.0-4.3); LYMPH % 39.6 % (20.0-40.0); MEAN CORPUSCULAR HEMOGLOBIN 25.6 pg (27.0-31.0); MEAN PLATELET VOLUME 7.5 fl (7.2-11.7); MONO # 0.6 K/uL (0.0-0.8); NEUT # 2.8 K/uL (1.8-7.0); NEUT % 47.2 % (50.0-75.0); NRBC % 0.2 % (0.0-0.0); RED CELL DISTRIBUTION WIDTH 13.8 % (11.5-14.5)
[2017-07-13 21:43] LABS: ALB/GLOB RATIO 1.3 (1.0-2.1); ALCOHOL SERUM < 10 mg/dl (0-10); ALKALINE PHOSPHATASE 73 U/L (38-126); ALT/SGPT 28 U/L (21-72); AST/SGOT 25 U/L (17-59); BILIRUBIN,TOTAL 0.5 mg/dl (0.2-1.3); BLOOD UREA NITROGEN 15 mg/dl (9-20); CALCIUM 9.1 mg/dL (8.4-10.2); CARBON DIOXIDE 27 mmol/L (22-30); CHLORIDE 104 mmol/L (98-107); GFR AFRICAN-AMERICAN > 60; GLUCOSE,RANDOM 112 mg/dL (75-110); SODIUM 142 mmol/l (132-148); TOTAL PROTEIN 7.1 G/DL (6.3-8.2)
[2017-07-13 23:10] LABS: RBC URINE 3 /hpf (0-3); URINE BILIRUBIN NEGATIVE (NEGATIVE); URINE BLOOD NEGATIVE (NEGATIVE); URINE COLOR YELLOW (YELLOW); URINE GLUCOSE (UA) NEG (Normal); URINE KETONE NEGATIVE (NEGATIVE); URINE LEUKOCYTE ESTERASE NEG Leu/uL (Negative); URINE PROTEIN 30 mg/dL (NEGATIVE); URINE UROBILINOGEN 0.2-1.0 mg/dL (0.2-1.0); WBC URINE 1 /hpf (0-5)
--- NOTE | 2017-07-14 10:39 | RAD ---
PROCEDURE: CHEST RADIOGRAPH, 1 VIEW HISTORY: med screening COMPARISON: 07/05/2017 FINDINGS: LUNGS: Clear. PLEURA: No pneumothorax or pleural fluid seen. CARDIOVASCULAR: No radiographic findings to suggest acute or significant cardiovascular disease. OSSEOUS STRUCTURES: No significant abnormalities. VISUALIZED UPPER ABDOMEN: Normal. OTHER FINDINGS: None. IMPRESSION: No active disease. No acute/significant interval changes. Please note: No preliminary report/ innterpretation of this examination provided by emergency department personnel.
== END 2017-07-13 23:45 | disposition home or self-care (01) ==
LOC: H.ER 20:12
DX: F25.9 Schizoaffective disorder, unspecified (principal); F14.10 Cocaine abuse, uncomplicated; Z86.59 Personal history of other mental and behavioral disorders; I10 Essential (primary) hypertension

== ENCOUNTER 2017-09-11 20:37 | Inpatient (IN) | payer MEDICAID ==
[2017-09-11 20:37] VITALS: BMI 24.2
[2017-09-11 22:21] LABS: RBC URINE < 1 /hpf (0-3); URINE BILIRUBIN NEGATIVE (NEGATIVE); URINE BLOOD NEGATIVE (NEGATIVE); URINE COLOR YELLOW (YELLOW); URINE GLUCOSE (UA) NEG (Normal); URINE KETONE NEGATIVE (NEGATIVE); URINE LEUKOCYTE ESTERASE NEG Leu/uL (Negative); URINE PROTEIN NEGATIVE (NEGATIVE); URINE UROBILINOGEN 0.2-1.0 mg/dL (0.2-1.0); WBC URINE 1 /hpf (0-5)
[2017-09-11 22:23] LABS: BASO # 0.1 K/uL (0.0-0.2); BASO % 1.1 % (0.0-2.0); EOS # 0.1 K/uL (0.0-0.7); EOS % 1.4 % (0.0-4.0); HEMATOCRIT 38.1 % (35.0-51.0); LYMPH # 2.5 K/uL (1.0-4.3); LYMPH % 36.2 % (20.0-40.0); MEAN CELL VOLUME 77.6 fl (80.0-94.0); MEAN CORPUSCULAR HEMOGLOBIN 24.8 pg (27.0-31.0); MEAN PLATELET VOLUME 7.3 fl (7.2-11.7); MONO # 0.6 K/uL (0.0-0.8); MONO % 8.8 % (0.0-10.0); NEUT # 3.7 K/uL (1.8-7.0); NEUT % 52.5 % (50.0-75.0); RED CELL DISTRIBUTION WIDTH 13.6 % (11.5-14.5)
[2017-09-11 22:34] LABS: ALB/GLOB RATIO 1.4 (1.0-2.1); ALCOHOL SERUM < 10 mg/dl (0-10); ALKALINE PHOSPHATASE 86 U/L (38-126); ALT/SGPT 31 U/L (21-72); AST/SGOT 34 U/L (17-59); BILIRUBIN,TOTAL 0.5 mg/dl (0.2-1.3); BLOOD UREA NITROGEN 14 mg/dl (9-20); CALCIUM 9.5 mg/dL (8.4-10.2); CARBON DIOXIDE 25 mmol/L (22-30); CHLORIDE 103 mmol/L (98-107); GFR AFRICAN-AMERICAN > 60; GLUCOSE,RANDOM 83 mg/dL (75-110); POTASSIUM 4.2 MMOL/L (3.6-5.0); SODIUM 140 mmol/l (132-148)
--- NOTE | 2017-09-11 22:47 | ED PDOC ---
HPI: Psych/Substance Abuse Time Seen by Provider: 09/11/17 20:58 Chief Complaint (Nursing): Psychiatric Evaluation Chief Complaint (Provider): SI Additional Complaint(s): 46yo M in ER for eval of depression with sI-states that the voices in his head are escalating telling home t hurt those who are following him before they hurt him. he states he running away from people who are chasing them, however when he looks-he can't see them. Pt states he wants blow his brains out. because the voices are increasing. Pt admits to being admitted 2-3 years to psych unit in [facility]. admits to drinking one beer today. Past Medical History Reviewed: Historical Data, Nursing Documentation, Vital Signs - Medical History PMH: Bipolar Disorder, Depression, HTN, Schizophrenia Denies: Diabetes, Hepatitis, HIV, Chronic Kidney Disease, Seizures, Sexually Transmitted Disease - Family History Family History: States: Unknown Family Hx - Immunization History Hx Tetanus Toxoid Vaccination: No Hx Influenza Vaccination: No Hx Pneumococcal Vaccination: No - Home Medications Home Medications: Ambulatory Orders Medication Instructions Recorded Lisinopril [Prinivil] 10 mg PO DAILY #30 05/03/17 Risperidone [Risperdal] 4 mg PO HS #60 05/03/17 traZODone [Desyrel] 100 mg PO HS PRN #100 tab 05/03/17 oxyCODONE/Acetaminophen [Percocet 1 ea PO Q6H PRN #10 tab 06/15/17 5/325 mg Tab] OXcarbazepine [Trileptal] 300 mg PO BID 09/11/17 Sertraline [Zoloft] 50 mg PO DAILY 09/11/17 - Allergies Allergies/Adverse Reactions: Allergies Allergy/AdvReac Type Severity Reaction Status Date / Time No Known Allergies Allergy Verified 06/15/17 20:25 Review of Systems ROS Statement: Except As Marked, All Systems Reviewed And Found Negative Constitutional: Negative for: Fever, Chills Psych: Positive for: Depression, Suicidal ideation Physical Exam - Reviewed Nursing Documentation Reviewed: Yes Vital Signs Reviewed: Yes - Physical Exam Appears: Positive for: Well, Non-toxic, No Acute Distress Skin: Positive for: Normal Color, Warm, DRY Cardiovascular/Chest: Positive for: Regular Rate, Rhythm Respiratory: Positive for: CNT, Normal Breath Sounds Back: Positive for: Normal Inspection Extremity: Positive for: Normal ROM Neurologic/Psych: Positive for: Alert, Oriented - Laboratory Results Result Diagrams: 09/11/17 22:15 09/11/17 22:15 - ECG ECG Rhythm: Positive for: Normal QRS, Normal ST Segment, Sinus Rhythm - Radiology X-Ray: Interpreted by Me X-Ray Interpretation: No Acute Disease - Progress ED Course And Treament: pt will need pysch eval. placed on1:1 Orders Category Date Time Status ELECTROCARDIOGRAM Stat Cardiology 09/11/17 20:58 Ordered ALCOHOL SERUM Stat Chem 09/11/17 22:15 Completed COMP METABOLIC PANEL Stat Chem 09/11/17 22:15 Completed DRUG SCREEN, URINE Stat Chem 09/11/17 22:15 Completed Crisis Evaluation As Ordered Cons 09/11/17 20:59 Ordered EKG-ED [EDNURTX] STAT ED Care 09/11/17 20:59 Active CBC (WITH DIFFERENTIAL) Stat VERONICA 09/11/17 22:15 Completed 1:1 Observation CONT Pt Care 09/11/17 20:58 Active URINALYSIS Stat URINALYSIS 09/11/17 22:15 Completed Medical Decision Making Medical Decision Making: pt is medically cleared for crisis evaluatin Disposition - Clinical Impression Clinical Impression: Schizophrenia - Patient ED Disposition Is Patient to be Admitted: Transfer of Care - Disposition Disposition Time: 00:05 Condition: FAIR Forms: [employer] (Mohawk) Patient Signed Over To: Tory Rosario
--- NOTE | 2017-09-12 00:13 | ED PDOC ---
- Laboratory Results Result Diagrams: 09/11/17 22:15 09/11/17 22:15 - ECG O2 Sat by Pulse Oximetry: 100 Medical Decision Making Medical Decision Making: Endorsed pending disposition by crisis trading assistant. Pt admitted to psychiatric unit. Labs and EKG reviewed. Disposition - Clinical Impression Clinical Impression: Schizoaffective disorder - POA Present On Arrival: None - Disposition Disposition: Admitted as In-Patient Disposition Time: 00:13 Condition: GOOD Forms: [employer] (Armenian)
[2017-09-12 02:27] VITALS: O2SAT 98
[2017-09-12] MEDS ORDERED: Alum-Mag Hydrox-Simethicone Susp (30 mL) PO PRN (02:35)
[2017-09-12] MEDS ORDERED: Magnesium Hydroxide Susp 30 ml UD PO PRN (02:35)
[2017-09-12] MEDS ORDERED: DiphenhydrAMINE 50 mg/ml Inj IM PRN (02:35)
[2017-09-12] MEDS ORDERED: Bismuth Subsalicylate 262 mg/15 ml Sus (240 ml) PO PRN (02:37)
--- NOTE | 2017-09-12 02:55 | PCM.BM ---
<Cristiano Blaspedro luis Cronin - Last Filed: 09/12/17 02:54> Treatment Plan Problems - Problems identified on initial assessmt Hopelessness/helplessness Date Initiated: 09/12/17 Time Initiated: 02:54 Assessment reference: NA Status: Active Altered Sleep Patterns Date Initiated: 09/12/17 Time Initiated: 02:54 Assessment reference: NA Status: Active Treatment assets and liabiliti Patient Assests: cooperative, ADL independent, physically healthy, negotiates basic needs, cognitively intact Patient Liabilities: live alone, financial problems, poor support system - Milieu Protocol Maintain good personal hygiene: daily Encourage regular showers, daily Remind patient to perform daily oral care Conduct patient checks and document Observation sheet: Q15 minutes Maintain personal safety: every shift Educate patient to report safety concerns to staff, every shift Monitor environment for contraband/sharps Medication safety: Monitor for expected outcome, potential side effects: every shift, Assess barriers to learning: every shift, Assess readiness for medication education: every shift <Verena Allison - Last Filed: 09/14/17 16:34> Treatment assets and liabiliti Patient Assests: adapts well, cooperative, resourceful, self-reliant, ADL independent, physically healthy, negotiates basic needs, good past tx response, cognitively intact Patient Liabilities: live alone, financial problems, poor support system, substance abuse Family Contact Family involvement: Famliy/SO not involved Family contact: Patient declines to allow family contact at present - Outside Agency Agency 1 Care involvment: Following patient during stay, Other Agency contact name: [facility] Agency contact number: Es[place] [phone] [phone] - Goals for Treatment Patient goals for treatment: Patient to continue stabilization on 3NP through medication management and group/supportive therapy. Patient to be encouraged to attend groups regularly to promote self-awareness, sobriety, and improve insight , coping skills and self-esteem. Patient to be provided with referral for appropriate level of aftercare to reduce risk of future hospitalizations and ensure safety in the community. Discharge/Continuing Care - Education Needs Education Needs: Patient Medication, Patient Coping Skills, Patient Anger Management skills, Patient Community resources, Patient Aftercare Safety Plan - Discharge Discharge Criteria: Tolerates medication w/o severe side effects, Free of Suicidal thoughts, Free of Homicidal thoughts, Free of paranoid thoughts, Normal sleep pattern, No longer exhibiting s/s of withdrawal, Reduction of target symptoms Discharge to:: Intermediate - Treatment Team Participation Patient/Family/SO Statement: 09/14/17 16:33 Patient attended tx team this morning and was able to engage in discussion regarding progress on 3NP and aftercare. Patient reports improvement in depression since admission. Patient reports auditory hallucinations, derogatory in nature, but to a lesser degree than upon admission. Patient denies SI/HI and is able to contract for safety on 3NP. Patient continues to reports sleep disturbances. Patient requesting to return to [facility] upon stabilization. Patient agreeable to injectable medication. Was Patient/Family/SO present at Treatment Team Meeting: Yes
--- NOTE | 2017-09-12 05:57 | RAD ---
HISTORY: cough COMPARISON: No prior. TECHNIQUE: Chest PA and lateral FINDINGS: LUNGS: No active pulmonary disease. PLEURA: No significant pleural effusion identified. No pneumothorax apparent. CARDIOVASCULAR: Normal. OSSEOUS STRUCTURES: No significant abnormalities. VISUALIZED UPPER ABDOMEN: Normal. OTHER FINDINGS: None. IMPRESSION: No active disease.
[2017-09-12 09:05] LABS: T4 10.4 ug/dl (5.5-11.0)
[2017-09-12 09:19] LABS: THYROID STIMULATING HORMONE 0.41 mIU/ML (0.46-4.68)
--- NOTE | 2017-09-12 12:04 | CARD ---
APPROVED REPORT EKG Measurement Heart [id number] <Conclusion> Normal sinus rhythm Possible Left atrial enlargement Left ventricular hypertrophy Abnormal ECG
--- NOTE | 2017-09-12 14:04 | PCM.PSYCH ---
Initial Psychiatric Evaluation - Initial Psychiatric Evaluation Legal Status: Capacity Chief Complaint (in patient's own words): i am depressed so i relapsed Patient's Reaction to Hospitalization: pt requested help History of Present Illness and Precipitating Events: pt with previous diagnosis of schizoeffective disorder, multiple inpatient hospitalizations, recently had multiple family losses became increasingly depressed relapsed on cocaine , pt started to experience non command auditory hallucinations also sarted to have suicidal ideations with plan to shoot himself , pt came to ER requesting help pt currently denied S/H I on the unit Current Medications: Active Medications Generic Name Dose Route Start Last Admin Trade Name Freq PRN Reason Stop Dose Admin Acetaminophen 650 mg 09/12/17 02:35 Tylenol 325mg Tab PO Q4 PRN pain level 4-7 Al Hydrox/Mg Hydrox/Simethicone 30 ml 09/12/17 02:35 Maalox Plus 30 Ml PO Q4 PRN Dyspepsia Bismuth Subsalicylate 524 mg 09/12/17 02:37 Pepto-Bismol PO Q4 PRN Diarrhea Diphenhydramine HCl 50 mg 09/12/17 02:35 Benadryl IM Q6 PRN Extrapyramidal S/S Unable PO Diphenhydramine HCl 50 mg 09/12/17 02:35 Benadryl PO Q6 PRN Extrapyramidal Symptoms Diphenhydramine HCl 50 mg 09/12/17 02:37 Benadryl PO HS PRN Sleep Haloperidol 5 mg 09/12/17 02:35 Haldol PO Q4 PRN Agitation Haloperidol Lactate 5 mg 09/12/17 02:35 Haldol IM Q4 PRN Agitation, Unable to Take PO Lorazepam 2 mg 09/12/17 02:35 Ativan IM Q4 PRN Anxiety/Agitation,Unable PO Lorazepam 2 mg 09/12/17 02:35 Ativan PO Q4 PRN Anxiety/Agitation Magnesium Hydroxide 30 ml 09/12/17 02:35 Milk Of Magnesia PO HS PRN Constipation Risperidone 2 mg 09/12/17 22:00 Risperdal Tab PO HS CLAUDIA Sertraline HCl 50 mg 09/12/17 11:54 Zoloft PO DAILY CLAUDIA Past Psychiatric History - Past Psychiatric History Explanation of prior treatment: multiple inpatient psychiatric hospitalizations History of Abuse: denied History of ETOH/Drug Use: hx of alcohol and cocaine use Pertinent Medical Hx (Current Medical&Sleep Prob, Allergies): Allergies Allergy/AdvReac Type Severity Reaction Status Date / Time No Known Allergies Allergy Verified 06/15/17 20:25 Lisinopril [Prinivil] 10 mg PO DAILY #30 05/03/17 Risperidone [Risperdal] 4 mg PO HS #60 05/03/17 traZODone [Desyrel] 100 mg PO HS PRN #100 tab 05/03/17 oxyCODONE/Acetaminophen [Percocet 5/325 mg Tab] 1 ea PO Q6H PRN #10 tab OXcarbazepine [Trileptal] 300 mg PO BID 09/11/17 Sertraline [Zoloft] 50 mg PO DAILY 09/11/17 Mental Status Examination - Personal Presentation Personal Presentation: Looks stated age - Affect Affect: Constricted, Depressed - Motor Activity Motor Activity: Psychomotor Retardation - Reliability in Providing Information Reliability in Providing Information: Poor, due to alteration in thoughts, Poor , due to altered mood - Speech Speech: Disorganized - Mood Mood: Depressed, Anxious - Formal Thought Process Formal Thought Process: Delusions, Paranoia, Circumstantial - Hallucinations/Delusions Additional comments: pt reported non command auditory hallucinations - Obsessions/Compulsions Obsessions: No Compulsions: No - Cognitive Functions Orientation: Person Sensorium: Alert Abstract Thinking: [place] Judgement: Imparied, as evidence by: Poor judgement, Imparied, as evidence by: Lack of insight into illness Memory: Recent intact, as evidence by: Ability to recall events of the day - Risk Risk: Withdrawal, Diminished functioning - Strength & Assets Inventory Strength & Assets Inventory: Life experience - Limitations Additional comments: poor compliance DSM 5 DX - DSM 5 DSM 5 Diagnosis: schizoaffective disorder depressed cocaine use disorder - Recommended/Plan of Treatment Treatment Recommendations and Plan of Treatment: start risperidone 2mg with plan to uptitrate start zoloft 50mg group and supportive therapy referral to rehab on discharge Projected ELOS: 7 days Prognosis: guarded Discharge Plan and Discharge Criteria: pt no longer depressed
--- NOTE | 2017-09-12 21:20 | CP.PCM.CON ---
History of Present Illness - History of Present Illness History of Present Illness: Medicine Consult Note 46 year old male presented to ED with complaints of auditory hallucinations, feeling depressed and anxious, with associated insomnia. He has headache that has been ongoing for past 3 days, with associated difficulty sleeping. He used to take tramadol to help with sleep but it did not have much effect. He has high anxiety since his parents months ago. He admits he is having difficulty processing the fact that they are gone. He has midepigastric tenderness and abdominal pain that began a couple of days ago. Has been eating well, no nausea, vomiting, diarrhea. No change in appetite. No bowel movement since he was admitted, unsure of last BM. No hx of constipation. No other complaints. PMHx: HTN, schizoaffective Meds: as per med rec ALL: NKDA Surgical Hx none Social Hx: crack use, alcohol use FamilyHx: Parents months ago, both were very ill Review of Systems - Constitutional Constitutional: absent: Chills, Fever - EENT Eyes: absent: Change in Vision - Cardiovascular Cardiovascular: absent: Chest Pain, Palpitations - Respiratory Respiratory: absent: Cough, Dyspnea - Gastrointestinal Gastrointestinal: Abdominal Pain (mid epigastric). absent: Diarrhea, Nausea, Vomiting - Genitourinary Genitourinary: absent: Dysuria, Nocturia - Musculoskeletal Musculoskeletal: absent: Muscle Weakness - Integumentary Integumentary: absent: Lesions, Rash - Neurological Neurological: absent: Abnormal Gait, Dizziness - Psychiatric Psychiatric: Auditory Hallucinations, Depression Past Patient History - Infectious Disease Hx of Infectious Diseases: None - Tetanus Immunizations Tetanus Immunization: Unknown - Past Medical History & Family History Past Medical History?: Yes - Past Social History Smoking Status: Never Smoked - CARDIAC Hx Cardiac Disorders: No Hx Hypertension: Yes - PULMONARY Hx Tuberculosis: No - NEUROLOGICAL HX Cerebrovascular Accident: No Hx Seizures: No - HEENT Hx HEENT Problems: No - RENAL Hx Chronic Kidney Disease: No - ENDOCRINE/METABOLIC Hx Endocrine Disorders: No - HEMATOLOGICAL/ONCOLOGICAL Hx Cancer: No Hx Human Immunodeficiency Virus (HIV): No - INTEGUMENTARY Hx Dermatological Problems: No - MUSCULOSKELETAL/RHEUMATOLOGICAL Hx Musculoskeletal Disorders: No - GASTROINTESTINAL Hx Gastrointestinal Disorders: No - GENITOURINARY/GYNECOLOGICAL Hx Sexually Transmitted Disorders: No - PSYCHIATRIC Hx Depression: Yes Hx Schizophrenia: Yes Hx Substance Use: Yes (crack cocaine) - SURGICAL HISTORY Hx Surgeries: No - ANESTHESIA Hx Anesthesia: No Meds Allergies/Adverse Reactions: Allergies Allergy/AdvReac Type Severity Reaction Status Date / Time No Known Allergies Allergy Verified 06/15/17 20:25 - Medications Medications: Current Medications Acetaminophen (Tylenol 325mg Tab) 650 mg PO Q4 PRN PRN Reason: pain level 4-7 Acetaminophen (Tylenol 325mg Tab) 650 mg PO Q6 PRN PRN Reason: Headache Al Hydrox/Mg Hydrox/Simethicone (Maalox Plus 30 Ml) 30 ml PO Q4 PRN PRN Reason: Dyspepsia Bismuth Subsalicylate (Pepto-Bismol) 524 mg PO Q4 PRN PRN Reason: Diarrhea Diphenhydramine HCl (Benadryl) 50 mg IM Q6 PRN PRN Reason: Extrapyramidal S/S Unable PO Diphenhydramine HCl (Benadryl) 50 mg PO Q6 PRN PRN Reason: Extrapyramidal Symptoms Diphenhydramine HCl (Benadryl) 50 mg PO HS PRN PRN Reason: Sleep Last Admin: 09/12/17 21:11 Dose: 50 mg Haloperidol (Haldol) 5 mg PO Q4 PRN PRN Reason: Agitation Haloperidol Lactate (Haldol) 5 mg IM Q4 PRN PRN Reason: Agitation, Unable to Take PO Lisinopril (Zestril) 10 mg PO DAILY CLAUDIA Lorazepam (Ativan) 2 mg IM Q4 PRN PRN Reason: Anxiety/Agitation,Unable PO Lorazepam (Ativan) 2 mg PO Q4 PRN PRN Reason: Anxiety/Agitation Magnesium Hydroxide (Milk Of Magnesia) 30 ml PO HS PRN PRN Reason: Constipation Risperidone (Risperdal Tab) 2 mg PO HS CLAUDIA Last Admin: 09/12/17 21:09 Dose: 2 mg Sertraline HCl (Zoloft) 50 mg PO DAILY CLAUDIA Last Admin: 09/12/17 13:59 Dose: 50 mg Physical Exam - Constitutional Appears: No Acute Distress (anxious) - Head Exam Head Exam: ATRAUMATIC, NORMAL INSPECTION, NORMOCEPHALIC - Eye Exam Eye Exam: Normal appearance, PERRL - ENT Exam ENT Exam: Mucous Membranes Moist - Neck Exam Neck exam: Positive for: Normal Inspection - Respiratory Exam Respiratory Exam: Clear to Auscultation Bilateral, NORMAL BREATHING PATTERN. absent: Rales, Rhonchi, Wheezes - Cardiovascular Exam Cardiovascular Exam: REGULAR RHYTHM, +S1, +S2 - GI/Abdominal Exam GI & Abdominal Exam: Distended (mildly), Soft, Tenderness (midepigatric, mild) - Extremities Exam Extremities exam: Negative for: pedal edema - Neurological Exam Neurological exam: Alert, CN II-XII Intact - Psychiatric Exam Psychiatric exam: Anxious - Skin Skin Exam: Dry, Intact, Normal Color Results - Vital Signs Recent Vital Signs: Last Vital Signs Temp 97.9 F 09/12/17 16:07 Pulse 95 H 09/12/17 16:07 Resp 18 09/12/17 16:07 BP 135/94 H 09/12/17 16:07 Pulse Ox 98 09/12/17 02:26 - Labs Result Diagrams: 09/11/17 22:15 09/11/17 22:15 Labs: Laboratory Results - last 24 hr 09/11/17 09/11/17 09/11/17 22:15 22:15 22:15 WBC 7.0 RBC 4.92 Hgb 12.2 Hct 38.1 MCV 77.6 L D MCH 24.8 L MCHC 32.0 L RDW 13.6 Plt Count 287 MPV 7.3 Neut % (Auto) 52.5 Lymph % (Auto) 36.2 Harvey % (Auto) 8.8 Eos % (Auto) 1.4 Baso % (Auto) 1.1 Neut # 3.7 Lymph # 2.5 Harvey # 0.6 Eos # 0.1 Baso # 0.1 Sodium 140 Potassium 4.2 Chloride 103 Carbon Dioxide 25 Anion Gap 16 BUN 14 Creatinine 1.0 Est GFR ( Amer) > 60 Est GFR (Non-Af Amer) > 60 Random Glucose 83 Hemoglobin A1c Calcium 9.5 Total Bilirubin 0.5 AST 34 ALT 31 Alkaline Phosphatase 86 Total Protein 8.0 Albumin 4.6 Globulin 3.4 Albumin/Globulin Ratio 1.4 Triglycerides Cholesterol LDL Cholesterol Direct HDL Cholesterol Thyroxine (T4) Total T3 TSH 3rd Generation Urine Color Urine Clarity Urine pH Ur Specific Watson Urine Protein Urine Glucose (UA) Urine Ketones Urine Blood Urine Nitrate Urine Bilirubin Urine Urobilinogen Ur Leukocyte Esterase Urine RBC (Auto) Urine Microscopic WBC Urine Opiates Screen Negative Urine Methadone Screen Negative Ur Barbiturates Screen Negative Ur Phencyclidine Scrn Negative Ur Amphetamines Screen Negative U Benzodiazepines Scrn Negative U Oth Cocaine Metabols Positive H U Cannabinoids Screen Negative Alcohol, Quantitative < 10 RPR 09/11/17 09/12/17 09/12/17 22:15 08:32 08:32 WBC RBC Hgb Hct MCV MCH MCHC RDW Plt Count MPV Neut % (Auto) Lymph % (Auto) Harvey % (Auto) Eos % (Auto) Baso % (Auto) Neut # Lymph # Harvey # Eos # Baso # Sodium Potassium Chloride Carbon Dioxide Anion Gap BUN Creatinine Est GFR ( Amer) Est GFR (Non-Af Amer) Random Glucose Hemoglobin A1c 5.7 Calcium Total Bilirubin AST ALT Alkaline Phosphatase Total Protein Albumin Globulin Albumin/Globulin Ratio Triglycerides 66 D Cholesterol 205 H LDL Cholesterol Direct 118 HDL Cholesterol 70 Thyroxine (T4) 10.4 Total T3 1.34 L TSH 3rd Generation 0.41 L Urine Color Yellow Urine Clarity Slighty-cloudy Urine pH 5.0 Ur Specific Watson 1.020 Urine Protein Negative Urine Glucose (UA) Neg Urine Ketones Negative Urine Blood Negative Urine Nitrate Negative Urine Bilirubin Negative Urine Urobilinogen 0.2-1.0 Ur Leukocyte Esterase Neg Urine RBC (Auto) < 1 Urine Microscopic WBC 1 Urine Opiates Screen Urine Methadone Screen Ur Barbiturates Screen Ur Phencyclidine Scrn Ur Amphetamines Screen U Benzodiazepines Scrn U Oth Cocaine Metabols U Cannabinoids Screen Alcohol, Quantitative RPR 09/12/17 08:32 WBC RBC Hgb Hct MCV MCH MCHC RDW Plt Count MPV Neut % (Auto) Lymph % (Auto) Harvey % (Auto) Eos % (Auto) Baso % (Auto) Neut # Lymph # Harvey # Eos # Baso # Sodium Potassium Chloride Carbon Dioxide Anion Gap BUN Creatinine Est GFR ( Amer) Est GFR (Non-Af Amer) Random Glucose Hemoglobin A1c Calcium Total Bilirubin AST ALT Alkaline Phosphatase Total Protein Albumin Globulin Albumin/Globulin Ratio Triglycerides Cholesterol LDL Cholesterol Direct HDL Cholesterol Thyroxine (T4) Total T3 TSH 3rd Generation Urine Color Urine Clarity Urine pH Ur Specific Watson Urine Protein Urine Glucose (UA) Urine Ketones Urine Blood Urine Nitrate Urine Bilirubin Urine Urobilinogen Ur Leukocyte Esterase Urine RBC (Auto) Urine Microscopic WBC Urine Opiates Screen Urine Methadone Screen Ur Barbiturates Screen Ur Phencyclidine Scrn Ur Amphetamines Screen U Benzodiazepines Scrn U Oth Cocaine Metabols U Cannabinoids Screen Alcohol, Quantitative RPR Nonreactive Assessment & Plan (1) Schizoaffective disorder Assessment and Plan: 46 year old male with pmh of schizoaffective disorder admitted for suicidal ideations with auditory hallucinations. Mangagement of schizoaffective disorder as per psych. His headache is likely related to his insomnia. Tylenol PRN. His abdominal pain is likely related to his anxiety, possible gastritis, will start pepcid 20mg daily For his HTN will resume lisinopril 10mg and monitor his BP Status: Acute (2) Abnormal TSH Assessment and Plan: slightly decreased TSH T4: 10.4 T3: 1.34 low possibly contributing to pt's anxiety Status: Acute (3) Abdominal pain Status: Acute (4) Headache Status: Acute (5) Hypertension Status: Chronic
--- NOTE | 2017-09-13 10:04 | CP.PCM.PN ---
Subjective - Date & Time of Evaluation Date of Evaluation: 09/13/17 Time of Evaluation: 07:45 - Subjective Subjective: 46 YO M is seen at bedside. Appears to be doing well. States he slept well overnight. Denies any overnight events. Headache and abdominal pain has resolved. Objective - Vital Signs/Intake and Output Vital Signs (last 24 hours): Temp Pulse Resp BP Pulse Ox 97.5 F L 99 H 20 140/90 98 09/13/17 09:00 09/13/17 09:00 09/13/17 09:00 09/13/17 09:40 09/12/17 02:26 - Medications Medications: Current Medications Acetaminophen (Tylenol 325mg Tab) 650 mg PO Q4 PRN PRN Reason: pain level 4-7 Acetaminophen (Tylenol 325mg Tab) 650 mg PO Q6 PRN PRN Reason: Headache Al Hydrox/Mg Hydrox/Simethicone (Maalox Plus 30 Ml) 30 ml PO Q4 PRN PRN Reason: Dyspepsia Bismuth Subsalicylate (Pepto-Bismol) 524 mg PO Q4 PRN PRN Reason: Diarrhea Diphenhydramine HCl (Benadryl) 50 mg IM Q6 PRN PRN Reason: Extrapyramidal S/S Unable PO Diphenhydramine HCl (Benadryl) 50 mg PO Q6 PRN PRN Reason: Extrapyramidal Symptoms Diphenhydramine HCl (Benadryl) 50 mg PO HS PRN PRN Reason: Sleep Last Admin: 09/12/17 21:11 Dose: 50 mg Famotidine (Pepcid) 20 mg PO DAILY [facility] Last Admin: 09/13/17 09:40 Dose: 20 mg Haloperidol (Haldol) 5 mg PO Q4 PRN PRN Reason: Agitation Haloperidol Lactate (Haldol) 5 mg IM Q4 PRN PRN Reason: Agitation, Unable to Take PO Lisinopril (Zestril) 10 mg PO DAILY [facility] Last Admin: 09/13/17 09:40 Dose: 10 mg Lorazepam (Ativan) 2 mg IM Q4 PRN PRN Reason: Anxiety/Agitation,Unable PO Lorazepam (Ativan) 2 mg PO Q4 PRN PRN Reason: Anxiety/Agitation Magnesium Hydroxide (Milk Of Magnesia) 30 ml PO HS PRN PRN Reason: Constipation Risperidone (Risperdal Tab) 2 mg PO HS [facility] Last Admin: 09/12/17 21:09 Dose: 2 mg Sertraline HCl (Zoloft) 50 mg PO DAILY [facility] Last Admin: 09/13/17 09:40 Dose: 50 mg - Labs Labs: 09/11/17 22:15 09/11/17 22:15 - Constitutional Appears: No Acute Distress - Head Exam Head Exam: NORMAL INSPECTION - Respiratory Exam Respiratory Exam: Clear to Ausculation Bilateral, NORMAL BREATHING PATTERN. absent: Rhonchi, Wheezes - Cardiovascular Exam Cardiovascular Exam: REGULAR RHYTHM, +S1, +S2 - GI/Abdominal Exam GI & Abdominal Exam: Soft, Normal Bowel Sounds. absent: Tenderness - Extremities Exam Extremities Exam: Normal Inspection. absent: Calf Tenderness - Neurological Exam Neurological Exam: Alert, Awake, CN II-XII Intact, Oriented x3 - Skin Skin Exam: Normal Color, Warm Assessment and Plan - Assessment and Plan (Free Text) Assessment: (1) Schizoaffective disorder Assessment and Plan: 46 year old male with pmh of schizoaffective disorder admitted for suicidal ideations with auditory hallucinations. Mangagement of schizoaffective disorder as per psych. (2) Abnormal TSH Assessment and Plan: slightly decreased TSH T4: 10.4 T3: 1.34 low possibly contributing to pt's anxiety - Will repeat patient TSH and T3 Status: Acute (3) Abdominal pain (Resolved) - pepcid 20 mg (4) Headache (Improved) - Tylenol (5) Hypertension - Lisinopril 10 mg Encouraged ambulation every half an hour (6) DVT prophylaxis Encouraged ambulation every half an hour
[2017-09-13 11:03] LABS: THYROID STIMULATING HORMONE 0.32 mIU/ML (0.46-4.68)
--- NOTE | 2017-09-13 17:56 | PCM.PYCHPN ---
Psychiatric Progress Note - Psychiatric Progress Note Patient seen today, length of contact: pt evaluated discussed with team chart reviewed Patient Chief Complaint: I am still depressed Problems Identified/Issues Discussed: pt seen in bed , isolative , unkempt, reported continues to feel depressed and experiencing non command auditory hallucinations, increased sleep and anhedonis , not attending groups, denied S/H I Medical Problems: multiple inpatient psychiatric hospitalizations DSM 5 Symptoms Update: schizoaffective disorder cpcaine induced mood disorder cocaine use disorder Medication Change: Yes Medical Record Reviewed: Yes (increase risperidone) Mental Status Examination - Cognitive Function Orientation: Person, Place Attention: Poor Concentration: Poor Association: Loose Fund of Knowledge: Poor Decription of patient's judgement and insights: impaired insight and poor judgement - Mood Mood: Depressed, Anxious - Affect Affect: Constricted, Depressed - Speech Speech: Loud - Formal Thought Process Formal Thought Process: Delusions, Paranoia, Circumstantial - Suicidal Ideation Suicidal Ideation: No - Homicidal Ideation Homicidal Ideation: No Goal/Treatment Plan - Goal/Treatment Plan Need for Continued Stay: Severe depression anxiety, Discharge may exacerbated symptoms Progress Toward Problem(s) and Goals/Treatment Plan: increase risperidone to 3mg with plan to uptitrate zoloft 50mg group and supportive therapy referral to rehab on discharge
--- NOTE | 2017-09-14 09:36 | CP.PCM.PN ---
Subjective - Date & Time of Evaluation Date of Evaluation: 09/14/17 Time of Evaluation: 09:36 - Subjective Subjective: 46 YO M was seen eating his breakfast this morning. He appears to be doing well. States his headache is better then it was previously. He has been advised to let nurse know when he gets a headache to request medication. Continues to have trouble sleeping, states he feels tired throughout the day but still cant sleep, has poor appetite but continues to eat well, says he forces himself to. Denies any problems with his bowl or bladder. - Have discussed with the patient about his abnormal thyroid values, and have discussed with him , the plan for further testing - Denies any chest pain, SOB, nausea. Objective - Vital Signs/Intake and Output Vital Signs (last 24 hours): Temp Pulse Resp BP Pulse Ox 98.2 F 85 18 125/78 98 09/13/17 16:38 09/13/17 16:38 09/13/17 16:38 09/13/17 16:38 09/12/17 02:26 - Medications Medications: Current Medications Acetaminophen (Tylenol 325mg Tab) 650 mg PO Q4 PRN PRN Reason: pain level 4-7 Acetaminophen (Tylenol 325mg Tab) 650 mg PO Q6 PRN PRN Reason: Headache Al Hydrox/Mg Hydrox/Simethicone (Maalox Plus 30 Ml) 30 ml PO Q4 PRN PRN Reason: Dyspepsia Bismuth Subsalicylate (Pepto-Bismol) 524 mg PO Q4 PRN PRN Reason: Diarrhea Diphenhydramine HCl (Benadryl) 50 mg IM Q6 PRN PRN Reason: Extrapyramidal S/S Unable PO Diphenhydramine HCl (Benadryl) 50 mg PO Q6 PRN PRN Reason: Extrapyramidal Symptoms Diphenhydramine HCl (Benadryl) 50 mg PO HS PRN PRN Reason: Sleep Last Admin: 09/13/17 21:04 Dose: 50 mg Famotidine (Pepcid) 20 mg PO DAILY [facility] Last Admin: 09/13/17 09:40 Dose: 20 mg Haloperidol (Haldol) 5 mg PO Q4 PRN PRN Reason: Agitation Haloperidol Lactate (Haldol) 5 mg IM Q4 PRN PRN Reason: Agitation, Unable to Take PO Lisinopril (Zestril) 10 mg PO DAILY [facility] Last Admin: 09/13/17 09:40 Dose: 10 mg Lorazepam (Ativan) 2 mg IM Q4 PRN PRN Reason: Anxiety/Agitation,Unable PO Lorazepam (Ativan) 2 mg PO Q4 PRN PRN Reason: Anxiety/Agitation Magnesium Hydroxide (Milk Of Magnesia) 30 ml PO HS PRN PRN Reason: Constipation Risperidone (Risperdal Tab) 2 mg PO HS [facility] Last Admin: 09/13/17 21:04 Dose: 2 mg Risperidone (Risperdal Tab) 1 mg PO DAILY [facility] Sertraline HCl (Zoloft) 50 mg PO DAILY [facility] Last Admin: 09/13/17 09:40 Dose: 50 mg - Labs Labs: 09/11/17 22:15 09/11/17 22:15 - Constitutional Appears: No Acute Distress - Eye Exam Eye Exam: Normal appearance - Respiratory Exam Respiratory Exam: Clear to Ausculation Bilateral. absent: Rhonchi, Wheezes - Cardiovascular Exam Cardiovascular Exam: REGULAR RHYTHM, +S1, +S2 - GI/Abdominal Exam GI & Abdominal Exam: Soft, Normal Bowel Sounds. absent: Tenderness - Extremities Exam Extremities Exam: Full ROM, Normal Inspection - Neurological Exam Neurological Exam: Alert, Awake, CN II-XII Intact, Normal Gait, Oriented x3 Assessment and Plan - Assessment and Plan (Free Text) Assessment: (1) Schizoaffective disorder Assessment and Plan: 46 year old male with pmh of schizoaffective disorder admitted for suicidal ideations with auditory hallucinations. Mangagement of schizoaffective disorder as per psych. (2) Abnormal TSH ( Sublinical Hypothyroidism vs secondary hypothyroidism) Assessment and Plan: slightly decreased TSH T4: 10.4 T3: 1.34 low - Repeat TSH and T3 on 09/14/17 have remained low. Will furthur work up - F/U with Prolactin Status: Acute (3) Abdominal pain (Resolved) - pepcid 20 mg (4) Headache (Improved) - Tylenol (5) Hypertension ( Controlled) - Lisinopril 10 mg Encouraged ambulation every half an hour (6) DVT prophylaxis Encouraged ambulation every half an hour
[2017-09-14] MEDS ORDERED: risperiDONE Consta 25mg/2ml Syringe IM ONE (11:21)
--- NOTE | 2017-09-14 17:44 | PCM.PYCHPN ---
Psychiatric Progress Note - Psychiatric Progress Note Patient seen today, length of contact: pt evaluated discussed with team chart reviewed Patient Chief Complaint: I am still hearing voices Problems Identified/Issues Discussed: pt seen in day room, less isolative more kempt, concrete thought process, continues to report non command auditory hallucinaions, denied DONN REPORTED FEELING LESS DEPRESSED , DENIED SIDE EFFECTS OF MEDICATIONS DSM 5 Symptoms Update: SCHIZOAFFECTIVE DISORDER Medication Change: Yes (START RISPERIDONE CONSTA) Medical Record Reviewed: Yes (increase risperidone) Mental Status Examination - Cognitive Function Orientation: Person, Place Attention: WNL Concentration: Poor Association: WNL Fund of Knowledge: Poor Decription of patient's judgement and insights: impaired insight and poor judgement - Mood Mood: Anxious, Neutral - Affect Affect: Constricted, Depressed - Speech Speech: Soft - Formal Thought Process Formal Thought Process: Circumstantial Psychotic Thoughts and Behaviors: REPORTED NON COMMAND AUDITORY HALLUCINATIONS - Suicidal Ideation Suicidal Ideation: No - Homicidal Ideation Homicidal Ideation: No Goal/Treatment Plan - Goal/Treatment Plan Need for Continued Stay: Severe depression anxiety, Discharge may exacerbated symptoms Progress Toward Problem(s) and Goals/Treatment Plan: CONTINUE risperidone to 3mg AND START RISPERIDONE CONSTA 25 MG IM zoloft 50mg group and supportive therapy referral to rehab on discharge Estimated Date of D/C: 09/18/17
--- NOTE | 2017-09-15 11:04 | PCM.PYCHPN ---
Psychiatric Progress Note - Psychiatric Progress Note Patient seen today, length of contact: pt seen and evaluated Patient Chief Complaint: pt is still anxious and depresssed but reports decrease in hallucinations with risperdal and denies side effects to meds. pt has poor insight and poor judgement DSM 5 Symptoms Update: schizoaffective disorder Medication Change: Yes (START RISPERIDONE CONSTA) Medical Record Reviewed: Yes (increase risperidone) Mental Status Examination - Cognitive Function Orientation: Person, Place Attention: WNL Concentration: Poor Association: WNL Fund of Knowledge: Poor - Mood Mood: Anxious, Neutral - Affect Affect: Constricted, Depressed - Speech Speech: Soft - Formal Thought Process Formal Thought Process: Circumstantial - Suicidal Ideation Suicidal Ideation: No - Homicidal Ideation Homicidal Ideation: No Goal/Treatment Plan - Goal/Treatment Plan Need for Continued Stay: Severe depression anxiety, Discharge may exacerbated symptoms Progress Toward Problem(s) and Goals/Treatment Plan: will continue to stabilize pt with risperdal and zoloft. Disposition planning as per dr meadows. Estimated Date of D/C: 09/18/17
--- NOTE | 2017-09-16 13:15 | PCM.PYCHPN ---
Psychiatric Progress Note - Psychiatric Progress Note Patient seen today, length of contact: pt seen and evaluated Patient Chief Complaint: pt is still anxious and depresssed but reports decrease in hallucinations with risperdal and denies side effects to meds. pt has poor insight and poor judgement Medication Change: Yes (START RISPERIDONE CONSTA) Medical Record Reviewed: Yes (increase risperidone) Mental Status Examination - Cognitive Function Orientation: Person, Place Attention: WNL Concentration: Poor Association: WNL Fund of Knowledge: Poor - Mood Mood: Anxious, Neutral - Affect Affect: Constricted, Depressed - Speech Speech: Soft - Formal Thought Process Formal Thought Process: Circumstantial - Suicidal Ideation Suicidal Ideation: No - Homicidal Ideation Homicidal Ideation: No Goal/Treatment Plan - Goal/Treatment Plan Need for Continued Stay: Severe depression anxiety, Discharge may exacerbated symptoms Progress Toward Problem(s) and Goals/Treatment Plan: will continue to stabilize pt with risperdal and zoloft. Disposition planning as per dr meadows. Estimated Date of D/C: 09/18/17
--- NOTE | 2017-09-17 10:55 | CP.PCM.PN ---
Subjective - Date & Time of Evaluation Date of Evaluation: 09/17/17 Time of Evaluation: 10:54 - Subjective Subjective: 46 YO M is seen at bedside this morning. As per patient he feels dizzy and unsteady, while laying down. Has never happened before. This started when he woke up this morning, feels very weak and lethargic. - Morning lisinopril was tonya since patient BP was 128/68 and patient is feeling dizzy. - Accucheck : 68, nurse gave patient something to eat. Objective - Vital Signs/Intake and Output Vital Signs (last 24 hours): Temp Pulse Resp BP Pulse Ox 97.7 F 79 20 128/68 98 09/16/17 17:00 09/16/17 17:00 09/16/17 17:00 09/17/17 09:02 09/12/17 02:26 - Medications Medications: Current Medications Acetaminophen (Tylenol 325mg Tab) 650 mg PO Q4 PRN PRN Reason: pain level 4-7 Acetaminophen (Tylenol 325mg Tab) 650 mg PO Q6 PRN PRN Reason: Headache Last Admin: 09/14/17 21:08 Dose: 650 mg Al Hydrox/Mg Hydrox/Simethicone (Maalox Plus 30 Ml) 30 ml PO Q4 PRN PRN Reason: Dyspepsia Bismuth Subsalicylate (Pepto-Bismol) 524 mg PO Q4 PRN PRN Reason: Diarrhea Diphenhydramine HCl (Benadryl) 50 mg IM Q6 PRN PRN Reason: Extrapyramidal S/S Unable PO Diphenhydramine HCl (Benadryl) 50 mg PO Q6 PRN PRN Reason: Extrapyramidal Symptoms Diphenhydramine HCl (Benadryl) 50 mg PO HS PRN PRN Reason: Sleep Last Admin: 09/16/17 21:09 Dose: 50 mg Famotidine (Pepcid) 20 mg PO DAILY [facility] Last Admin: 09/17/17 09:02 Dose: 20 mg Haloperidol (Haldol) 5 mg PO Q4 PRN PRN Reason: Agitation Haloperidol Lactate (Haldol) 5 mg IM Q4 PRN PRN Reason: Agitation, Unable to Take PO Lisinopril (Zestril) 10 mg PO DAILY [facility] Last Admin: 09/17/17 09:02 Dose: 10 mg Magnesium Hydroxide (Milk Of Magnesia) 30 ml PO HS PRN PRN Reason: Constipation Risperidone (Risperdal Tab) 2 mg PO HS [facility] Last Admin: 09/16/17 21:09 Dose: 2 mg Risperidone (Risperdal Tab) 1 mg PO DAILY [facility] Last Admin: 09/17/17 09:05 Dose: 1 mg Sertraline HCl (Zoloft) 50 mg PO DAILY [facility] Last Admin: 09/17/17 09:06 Dose: 50 mg - Labs Labs: 09/11/17 22:15 09/11/17 22:15 - Constitutional Appears: No Acute Distress - Head Exam Head Exam: NORMAL INSPECTION - Respiratory Exam Respiratory Exam: Clear to Ausculation Bilateral, NORMAL BREATHING PATTERN. absent: Wheezes - Cardiovascular Exam Cardiovascular Exam: REGULAR RHYTHM, +S1, +S2 - GI/Abdominal Exam GI & Abdominal Exam: Soft, Normal Bowel Sounds. absent: Tenderness - Neurological Exam Neurological Exam: Alert, Awake, CN II-XII Intact, Oriented x3 - Skin Skin Exam: Normal Color, Warm Assessment and Plan - Assessment and Plan (Free Text) Assessment: (1) Schizoaffective disorder Assessment and Plan: 46 year old male with pmh of schizoaffective disorder admitted for suicidal ideations with auditory hallucinations. Mangagement of schizoaffective disorder as per psych. (2) Abnormal TSH ( Sublinical Hypothyroidism vs secondary hypothyroidism) Assessment and Plan: slightly decreased TSH T4: 10.4 T3: 1.34 low - Repeat TSH: .32, T3: 1.21 - Repeat TSH and T3 on 09/14/17 have remained low. Will furthur work up - Prolactin : 36.1 - F/u with free T4 Status: Acute (3) New onset of dizziness - PAtients fasting glucose was 68 today -Have asked nurse to give patient juice - EKG ordered - Orthostatic Vitals: Layin/56 HR:98. Sittin/56 HR: 105, Standin/72 HR: 124 - (5) Hypertension ( Controlled) - Held lisinopril dosage this morning , because of patients light headedness, w / BP of 128/68 (6) DVT prophylaxis Encouraged ambulation every half an hour
[2017-09-17 11:27] LABS: BASO % 0.5 % (0.0-2.0); EOS # 0.1 K/uL (0.0-0.7); EOS % 1.8 % (0.0-4.0); HEMATOCRIT 37.7 % (35.0-51.0); LYMPH # 2.6 K/uL (1.0-4.3); LYMPH % 48.2 % (20.0-40.0); MEAN CELL VOLUME 78.9 fl (80.0-94.0); MEAN CORPUSCULAR HGB CONC 32.9 g/dL (33.0-37.0); MEAN PLATELET VOLUME 7.6 fl (7.2-11.7); MONO # 0.6 K/uL (0.0-0.8); MONO % 11.8 % (0.0-10.0); NEUT % 37.7 % (50.0-75.0); NRBC % 0.1 % (0.0-0.0); RED CELL DISTRIBUTION WIDTH 13.7 % (11.5-14.5); WHITE BLOOD COUNT 5.3 K/uL (4.8-10.8)
[2017-09-17 11:47] LABS: ALB/GLOB RATIO 1.4 (1.0-2.1); ALKALINE PHOSPHATASE 54 U/L (38-126); ALT/SGPT 31 U/L (21-72); AST/SGOT 18 U/L (17-59); BILIRUBIN,TOTAL 0.6 mg/dl (0.2-1.3); BLOOD UREA NITROGEN 18 mg/dl (9-20); CALCIUM 9.5 mg/dL (8.4-10.2); CARBON DIOXIDE 28 mmol/L (22-30); CHLORIDE 104 mmol/L (98-107); GFR AFRICAN-AMERICAN > 60; GLUCOSE,RANDOM 64 mg/dL (75-110); POTASSIUM 4.1 MMOL/L (3.6-5.0); SODIUM 141 mmol/l (132-148); TOTAL PROTEIN 7.3 G/DL (6.3-8.2)
--- NOTE | 2017-09-17 13:37 | PCM.PYCHPN ---
Psychiatric Progress Note - Psychiatric Progress Note Patient seen today, length of contact: pt seen and evaluated Patient Chief Complaint: I feel light headed and weak Problems Identified/Issues Discussed: pt seen in bed , reported having an episode of weakness and light headed, reviewed consult by intermnal medicine, antihypertensive medications held EKG reviewed, normal sinus rhytm pt continues to present with depressed mood and affect, reported clearing off of the auditory hallucinations denied any current suicidal or homicidal ideations Medical Problems: hypertension Medication Change: Yes (decrease oral risperidone) Medical Record Reviewed: Yes (increase risperidone) Mental Status Examination - Cognitive Function Orientation: Person, Place Attention: WNL Concentration: WNL Association: WN Fund of Knowledge: Poor - Mood Mood: Anxious, Neutral - Affect Affect: Constricted, Depressed - Speech Speech: Soft - Formal Thought Process Formal Thought Process: Circumstantial - Suicidal Ideation Suicidal Ideation: No - Homicidal Ideation Homicidal Ideation: No Goal/Treatment Plan - Goal/Treatment Plan Need for Continued Stay: Severe depression anxiety, Discharge may exacerbated symptoms Progress Toward Problem(s) and Goals/Treatment Plan: decrease oral risperidone to 2mg daily, continue RISPERIDONE CONSTA 25 MG IM q 2 weeks zoloft 50mg group and supportive therapy referral to rehab on discharge Estimated Date of D/C: 09/18/17
--- NOTE | 2017-09-18 00:12 | CARD ---
APPROVED REPORT EKG Measurement Heart [id number] <Conclusion> Normal sinus rhythm Voltage criteria for left ventricular hypertrophy Possible Acute pericarditis vs early repolarization Abnormal ECG
--- NOTE | 2017-09-18 00:15 | CARD ---
APPROVED REPORT EKG Measurement Heart [id number] <Conclusion> Normal sinus rhythm Voltage criteria for left ventricular hypertrophy ST elevation, probably due to early repolarization Abnormal ECG
--- NOTE | 2017-09-18 13:59 | PCM.PYCHPN ---
Psychiatric Progress Note - Psychiatric Progress Note Patient seen today, length of contact: pt seen and evaluated Patient Chief Complaint: I am feeling a little better no voices today Problems Identified/Issues Discussed: pt seen in day room, cooperative, reported feeling less depressed with clearing off of the auditory hallucinations, no changes in sleep or appetite, denied any ciurrent S/H I denied side effects of medications Medical Problems: hypertension DSM 5 Symptoms Update: schizoaffective disorder cocaine use disorder Medication Change: No (decrease oral risperidone) Medical Record Reviewed: Yes (increase risperidone) Mental Status Examination - Cognitive Function Orientation: Person, Place Attention: WNL Concentration: WNL Association: WNL Fund of Knowledge: Poor - Mood Mood: Anxious, Neutral - Affect Affect: Constricted, Depressed - Speech Speech: Soft - Formal Thought Process Formal Thought Process: Circumstantial - Suicidal Ideation Suicidal Ideation: No - Homicidal Ideation Homicidal Ideation: No Goal/Treatment Plan - Goal/Treatment Plan Need for Continued Stay: Severe depression anxiety, Discharge may exacerbated symptoms Progress Toward Problem(s) and Goals/Treatment Plan: continue oral risperidone 2mg daily, continue RISPERIDONE CONSTA 25 MG IM q 2 weeks zoloft 50mg group and supportive therapy referral to rehab on discharge Estimated Date of D/C: 09/18/17
--- NOTE | 2017-09-19 13:34 | PCM.PYCHPN ---
Psychiatric Progress Note - Psychiatric Progress Note Patient seen today, length of contact: pt seen and evaluated Patient Chief Complaint: I am feeling better Problems Identified/Issues Discussed: pt seen in day room, cooperative, reported feeling less depressed with clearing off of the auditory hallucinations, no changes in sleep or appetite, denied any ciurrent S/H I denied side effects of medications Medical Problems: hypertension DSM 5 Symptoms Update: schizoaffective disorder cocaine use disorder Medication Change: No Medical Record Reviewed: Yes Mental Status Examination - Cognitive Function Orientation: Person, Place Attention: WNL Concentration: WNL Association: WNL Fund of Knowledge: Poor - Mood Mood: Neutral - Affect Affect: Constricted - Speech Speech: Soft - Formal Thought Process Formal Thought Process: Circumstantial - Suicidal Ideation Suicidal Ideation: No - Homicidal Ideation Homicidal Ideation: No Goal/Treatment Plan - Goal/Treatment Plan Need for Continued Stay: Severe depression anxiety, Discharge may exacerbated symptoms Progress Toward Problem(s) and Goals/Treatment Plan: continue oral risperidone 2mg daily, continue RISPERIDONE CONSTA 25 MG IM q 2 weeks zoloft 50mg group and supportive therapy referral to rehab on discharge Estimated Date of D/C: 09/20/17
--- NOTE | 2017-09-20 11:41 | PCM.PYCHPN ---
Psychiatric Progress Note - Psychiatric Progress Note Patient seen today, length of contact: pt seen and evaluated Patient Chief Complaint: I am alright Problems Identified/Issues Discussed: pt seen in day room, cooperative, better groomed ,reported feeling less depressed with clearing off of the auditory hallucinations, no changes in sleep or appetite, denied any current S/H I denied side effects of medications, showing insight into illness Medical Problems: hypertension DSM 5 Symptoms Update: schizoaffective disorder cocaine use disorder Medication Change: No Medical Record Reviewed: Yes Mental Status Examination - Cognitive Function Orientation: Person, Place Attention: WNL Concentration: WNL Association: WNL Fund of Knowledge: Poor - Mood Mood: Neutral - Affect Affect: Constricted - Speech Speech: Soft - Formal Thought Process Formal Thought Process: Circumstantial Psychotic Thoughts and Behaviors: pt denied any current psychotic symptoms, non elicited - Suicidal Ideation Suicidal Ideation: No - Homicidal Ideation Homicidal Ideation: No Goal/Treatment Plan - Goal/Treatment Plan Need for Continued Stay: Severe depression anxiety, Discharge may exacerbated symptoms Progress Toward Problem(s) and Goals/Treatment Plan: continue oral risperidone 2mg daily, continue RISPERIDONE CONSTA 25 MG IM q 2 weeks zoloft 50mg group and supportive therapy referral to rehab on discharge Estimated Date of D/C: 09/21/17
[2017-09-20 16:49] VITALS: RESP 18
[2017-09-21 09:21] VITALS: BP 132/74; PULSE 79; TEMP 98.1
--- NOTE | 2017-09-21 11:31 | PCM.PYCHDC ---
Mental Status Examination - Mental Status Examination Orientation: Person, Place Memory: Intact Mood: Neutral Affect: Broad Speech: Appropriate Attention: WNL Concentration: WNL Association: WNL Fund of Knowledge: Poor Formal Thought Process: No Impairment Description of patient's judgement and insight: partial insight and fair judgement Psychotic Thoughts and Behaviors: pt denied any current psychotic symptoms, non elicited Suicidal Ideation: No Current Homicidal Ideation?: No Discharge Summary - Discharge Note Reason for Hospitalization: pt with previous diagnosis of schizoeffective disorder, multiple inpatient hospitalizations, recently had multiple family losses became increasingly depressed relapsed on cocaine , pt started to experience non command auditory hallucinations also sarted to have suicidal ideations with plan to shoot himself , pt came to ER requesting help pt currently denied S/H I on the unit Consultations:: List each consultation separately and include: 1. Reason for request. 2. Findings. 3. Follow-up Consultations: family practice for hypertension Summary of Hospital Course include:: 1. Description of specific treatment plan utilized for patients during their course of treatmen. 2. Summarize the time- course for resolution of acute symptoms and/or regressed behaviors. 3. Describe issues identified and worked on during hospitalization. 4. Describe medication utilized. 5. Describe medical problems identified and treated. 6. Reassessment of suicide risk Summary of Hospital Course: pt on admission was started on risperidone it was uptitrated to 3mg daily, pt was then started on risperidone consta 25 mg IM [id number] to ensure medication compliance first dose was on 09/14/17 , next dose due on 09/27/17 pt was also started on zoloft 50mg daily medications were well tolerated and no reported side effects pt was educated about the negative effects of relapse on cocaine. group, motivational and supportive therapy were provided pt on discharge denied any psychotic symptoms, denied S/H I mental status was stable follow up arranged with outpatient rehab - Diagnosis (1) Schizoaffective disorder Current Visit: Yes Status: Acute Comment: pharamcotherapy (2) Cocaine abuse Current Visit: No Status: Acute Comment: motivational therapy - Final Diagnosis (DSM 5) Condition upon Discharge: GOOD Disposition: HOME/ ROUTINE Prescriptions/Medication Reconciliation: risperiDONE [RisperDAL Tab] 1 mg PO HS 30 Days #30 tab risperiDONE [RisperDAL Tab] 1 mg PO DAILY 30 Days #30 tab Sertraline [Zoloft] 50 mg PO DAILY 30 Days #30 tab - Antipsychotic Medications Pt discharged on 2 or more routine antipsychotic medications: No
== END 2017-09-21 12:01 | disposition home or self-care (01) | DRG 430 ==
LOC: H.ER 20:37 → H.ERHOLD 09-12 00:11 → H.PSYCH 09-12 02:32
PROVIDERS: ADMIT Psychiatry & Neurology Psychiatry; ATTEND Psychiatry & Neurology Psychiatry
PROC: GZHZZZZ Group Psychotherapy (ICD-10-PCS; principal; 2017-09-12)
PROC: GZ58ZZZ Individual Psychotherapy, Cognitive-Behavioral (ICD-10-PCS; 2017-09-13)
DX: F25.1 Schizoaffective disorder, depressive type (principal); F14.10 Cocaine abuse, uncomplicated; F31.9 Bipolar disorder, unspecified; F41.9 Anxiety disorder, unspecified; G47.00 Insomnia, unspecified; I10 Essential (primary) hypertension; R94.6 Abnormal results of thyroid function studies; R42 Dizziness and giddiness; Z79.899 Other long term (current) drug therapy

== ENCOUNTER 2017-09-26 16:02 | Emergency (ER) | payer MEDICAID ==
[2017-09-26 16:02] VITALS: BMI 24.2
[2017-09-26 16:17] VITALS: BP 148/74; PULSE 81; RESP 16; TEMP 98.3; O2SAT 100
[2017-09-26] MEDS ORDERED: RISPERDAL IM STA (16:19)
--- NOTE | 2017-09-26 16:56 | ED PDOC ---
HPI: General Adult Time Seen by Provider: 09/26/17 16:18 Chief Complaint (Nursing): Medical Clearance Chief Complaint (Provider): needs med injection History Per: Patient Additional Complaint(s): 46-year-old male presents to emergency department for administration of injection of medication. Patient is prescribed IM risperdal that needs to be administered every other week. He presents with the medication and is requesting ED staff to administer it. He offers no acute complaints upon arrival. Past Medical History Reviewed: Historical Data, Nursing Documentation, Vital Signs Vital Signs: Last Vital Signs Temp 98.3 F 09/26/17 16:13 Pulse 81 09/26/17 16:13 Resp 16 09/26/17 16:13 BP 148/74 09/26/17 16:13 Pulse Ox 100 09/26/17 16:56 - Medical History PMH: Bipolar Disorder, Depression, HTN, Schizophrenia - Family History Family History: States: No Known Family Hx - Living Arrangements Living Arrangements: With Family - Social History Current smoker - smoking cessation education provided: No Alcohol: None Drugs: Denies - Home Medications Home Medications: Ambulatory Orders Medication Instructions Recorded Lisinopril [Prinivil] 10 mg PO DAILY #30 05/03/17 Sertraline [Zoloft] 50 mg PO DAILY 30 Days #30 tab 09/21/17 risperiDONE [RisperDAL Tab] 1 mg PO DAILY 30 Days #30 tab 09/21/17 risperiDONE [RisperDAL Tab] 1 mg PO HS 30 Days #30 tab 09/21/17 - Allergies Allergies/Adverse Reactions: Allergies Allergy/AdvReac Type Severity Reaction Status Date / Time No Known Allergies Allergy Verified 06/15/17 20:25 Review of Systems ROS Statement: Except As Marked, All Systems Reviewed And Found Negative Psych: Positive for: Other (needs IM risperdal administered) Physical Exam - Reviewed Nursing Documentation Reviewed: Yes Vital Signs Reviewed: Yes - Physical Exam Appears: Positive for: Well, Non-toxic, No Acute Distress Skin: Negative for: Rash Eye Exam: Positive for: Normal appearance Cardiovascular/Chest: Positive for: Regular Rate, Rhythm Respiratory: Positive for: Normal Breath Sounds Neurologic/Psych: Positive for: Alert, Oriented, Mood/Affect (appropriate) - ECG O2 Sat by Pulse Oximetry: 100 Pulse Ox Interpretation: Normal Medical Decision Making Medical Decision Makin46 year old male here for IM medication administration RN administered 25 mg IM were spared all the patient presented with from his pharmacy. Medication tolerated well by patient, patient was referred to community mental health clinic for follow up. Disposition - Clinical Impression Clinical Impression: Medication administered, Schizophrenia - Patient ED Disposition Is Patient to be Admitted: No Counseled Patient/Family Regarding: Need For Followup - Disposition Referrals: [facility] [Outside] Disposition: Routine/Home Disposition Time: 18:18 Condition: STABLE Additional Instructions: Follow up with mental health clinic. Instructions: Risperidone (By injection) Forms: [employer] (Citizen Of [place])
[2017-09-26] MEDS: RISPERDAL IM STA ×2 (17:10→17:36)
== END 2017-09-26 18:35 | disposition home or self-care (01) ==
LOC: H.ER 16:02
DX: Z79.899 Other long term (current) drug therapy (principal); F20.9 Schizophrenia, unspecified; F31.9 Bipolar disorder, unspecified; I10 Essential (primary) hypertension

== ENCOUNTER 2017-10-01 15:00 | Emergency (ER) | payer MEDICAID ==
[2017-10-01 15:01] VITALS: BMI 24.2
[2017-10-01] MEDS ORDERED: Promethazine 12.5 mg/10 ml Syrup PO STA (15:36)
[2017-10-01] MEDS ORDERED: Promethazine 6.25 MG/5 ML CUP ONE (15:54)
--- NOTE | 2017-10-01 15:58 | RAD ---
HISTORY: fever, cough COMPARISON: Chest radiograph dated 09/11/2017. TECHNIQUE: Chest PA and lateral FINDINGS: LUNGS: No active pulmonary disease. PLEURA: No significant pleural effusion identified. No pneumothorax apparent. CARDIOVASCULAR: Normal. OSSEOUS STRUCTURES: No significant abnormalities. VISUALIZED UPPER ABDOMEN: Normal. OTHER FINDINGS: None. IMPRESSION: No active disease.
--- NOTE | 2017-10-01 16:03 | ED PDOC ---
HPI: CCC, URI, Sore Throat Time Seen by Provider: 10/01/17 15:24 Chief Complaint (Nursing): Chest Pain Chief Complaint (Provider): Cough History Per: Patient History/Exam Limitations: no limitations Have you had recent travel within the past 21 days to any of the following countries: [place], [place], [place] or [place]?: No Onset/Duration Of Symptoms: Days (x3 ) Current Symptoms Are (Timing): Still Present Sick Contacts (Context): None Associated Symptoms: Chills, Cough Ear Symptoms: Bilateral: None Additional Complaint(s): 46 year old male with a past medical history of hypertension and depression presents to the ED complaining of cough x3 days. The patient states that he has been coughing so much that his chest now hurts and he is afraid to cough due to pain. He further states that he has been having alternating periods of chills and warmth. The patient reports that his cough is productive of green phlegm. Patient states he has not had his flu shot this year. Denies recent travel. PMD: Francisco Kang Past Medical History Reviewed: Historical Data, Nursing Documentation, Vital Signs Vital Signs: Last Vital Signs Temp 98.9 F 10/01/17 16:31 Pulse 87 10/01/17 16:31 Resp 16 10/01/17 16:31 BP 164/82 H 10/01/17 16:31 Pulse Ox 100 10/01/17 16:31 - Medical History PMH: Bipolar Disorder, Depression, HTN, Schizophrenia Denies: Diabetes, Hepatitis, HIV, Chronic Kidney Disease, Seizures, Sexually Transmitted Disease - Surgical History Surgical History: No Surg Hx - Family History Family History: States: Unknown Family Hx - Living Arrangements Living Arrangements: Other ([place]) - Immunization History Hx Tetanus Toxoid Vaccination: No Hx Influenza Vaccination: No Hx Pneumococcal Vaccination: No - Home Medications Home Medications: Ambulatory Orders Medication Instructions Recorded Lisinopril [Prinivil] 10 mg PO DAILY #30 05/03/17 Sertraline [Zoloft] 50 mg PO DAILY 30 Days #30 tab 09/21/17 risperiDONE [RisperDAL Tab] 1 mg PO DAILY 30 Days #30 tab 09/21/17 risperiDONE [RisperDAL Tab] 1 mg PO HS 30 Days #30 tab 09/21/17 Ibuprofen [Motrin Tab] 600 mg PO Q6 #30 tab 10/01/17 Methylprednisolone [Medrol Dose 4 mg PO DAILY #21 mg 10/01/17 Pack (21 tabs)] Promethazine [Phenergan] 12.5 mg PO BID PRN #30 tab 10/01/17 - Allergies Allergies/Adverse Reactions: Allergies Allergy/AdvReac Type Severity Reaction Status Date / Time No Known Allergies Allergy Verified 06/15/17 20:25 Review of Systems ROS Statement: Except As Marked, All Systems Reviewed And Found Negative Constitutional: Positive for: Chills, Other (period sof warmth) Cardiovascular: Positive for: Chest Pain Respiratory: Positive for: Cough (productive of green phlegm) Physical Exam - Physical Exam Appears: Positive for: Non-toxic (Patient is warm to the touch), No Acute Distress Head Exam: Positive for: ATRAUMATIC, NORMAL INSPECTION, NORMOCEPHALIC Skin: Positive for: Normal Color, Warm, Dry. Negative for: Rash Eye Exam: Positive for: Normal appearance, EOMI, PERRL. Negative for: Periorbital tenderness ENT: Positive for: Normal ENT Inspection. Negative for: Nasal Congestion, Tonsillar Exudate, Tonsillar Swelling Neck: Positive for: Normal, Painless ROM, Supple Cardiovascular/Chest: Positive for: Regular Rate, Rhythm, Chest Non Tender. Negative for: Tachycardia Respiratory: Positive for: Normal Breath Sounds. Negative for: Wheezing, Respiratory Distress Gastrointestinal/Abdominal: Positive for: Normal Exam, Bowel Sounds, Soft. Negative for: Tenderness, Guarding, Rebound Back: Positive for: Normal Inspection. Negative for: L CVA Tenderness, R CVA Tenderness Extremity: Positive for: Normal ROM. Negative for: Tenderness, Deformity, Swelling Neurologic/Psych: Positive for: Alert, Oriented, Gait - Laboratory Results Result Diagrams: 10/01/17 16:04 10/01/17 16:04 Medical Decision Making Medical Decision Makin Initial Impression 46 y/o male presenting with viral illness vs pneumonia Initial Plan: * VBG * BMP * CBC * chest x-ray * Phenergan Syrup * Toradol 15mg IVP * Tylenol 650mg PO * Influenza A B * Reevaluation 1800 No PNA on CXR, labwork and influenza negative, patient feeling better, likely viral illness v. bronchospasm. Will give medrol dose pack, promethazine and encouraged pt. to f/u /in clinic in 1- 2 days. Documented by Pauly Garcia acting as a scribe for Jamie Lew MD. All medical record entries made by the Scribe were at my direction and personally dictated by me. I have reviewed the chart and agree that the record accurately reflects my personal performance of the history, physical exam, medical decision making, and the department course for this patient. I have also personally directed, reviewed, and agree with the discharge instructions and disposition. Disposition - Clinical Impression Clinical Impression: Cough - Disposition Referrals: [facility] [Outside] Disposition Time: 18:00 Condition: IMPROVED Prescriptions: Ibuprofen [Motrin Tab] 600 mg PO Q6 #30 tab Methylprednisolone [Medrol Dose Pack (21 tabs)] 4 mg PO DAILY #21 mg Promethazine [Phenergan] 12.5 mg PO BID PRN #30 tab PRN Reason: Cough Instructions: Bronchospasm (ED), Acute Cough (ED) Forms: [employer] ([place])
[2017-10-01 16:10] LABS: BASO # 0.1 K/uL (0.0-0.2); BASO % 0.7 % (0.0-2.0); EOS # 0.1 K/uL (0.0-0.7); EOS % 1.7 % (0.0-4.0); HEMATOCRIT 35.2 % (35.0-51.0); LYMPH # 1.5 K/uL (1.0-4.3); LYMPH % 17.8 % (20.0-40.0); MEAN CELL VOLUME 78.3 fl (80.0-94.0); MEAN CORPUSCULAR HEMOGLOBIN 25.2 pg (27.0-31.0); MEAN CORPUSCULAR HGB CONC 32.2 g/dL (33.0-37.0); MEAN PLATELET VOLUME 7.3 fl (7.2-11.7); MONO # 0.8 K/uL (0.0-0.8); MONO % 9.2 % (0.0-10.0); NEUT % 70.6 % (50.0-75.0); RED CELL DISTRIBUTION WIDTH 13.7 % (11.5-14.5)
[2017-10-01 16:14] LABS: WHITE BLOOD COUNT 8.5 K/uL (4.8-10.8)
[2017-10-01 16:19] LABS: VENOUS BLOOD GAS BASE EXCESS 6.1 mmol/L (0.0-2.0); VENOUS BLOOD GAS PCO2 49 mmHg (40-60); VENOUS BLOOD PH 7.42 (7.32-7.43)
[2017-10-01 16:25] LABS: BLOOD UREA NITROGEN 13 mg/dl (9-20); CALCIUM 9.2 mg/dL (8.4-10.2); CARBON DIOXIDE 30 mmol/L (22-30); CHLORIDE 99 mmol/L (98-107); GFR AFRICAN-AMERICAN > 60; GLUCOSE,RANDOM 101 mg/dL (75-110); POTASSIUM 4.2 MMOL/L (3.6-5.0); SODIUM 137 mmol/l (132-148)
[2017-10-01 16:32] VITALS: BP 164/82; PULSE 87; RESP 16; TEMP 98.9; O2SAT 100
== END 2017-10-01 18:16 | disposition home or self-care (01) ==
LOC: H.ER 15:00
DX: J98.01 Acute bronchospasm (principal); I10 Essential (primary) hypertension; F31.9 Bipolar disorder, unspecified; F20.9 Schizophrenia, unspecified
CPT/HCPCS: 71020; 80048; 82803; 85025; 87804; 96374; 99285; J1885

== ENCOUNTER 2017-11-16 07:17 | Emergency (ER) | payer MEDICAID ==
[2017-11-16 07:25] VITALS: BMI 23.3
[2017-11-16 07:26] VITALS: BP 128/78; PULSE 78
--- NOTE | 2017-11-16 09:16 | ED PDOC ---
HPI: General Adult Time Seen by Provider: 11/16/17 07:47 Chief Complaint (Nursing): Medical Clearance Chief Complaint (Provider): Medical Injection and Coughing History Per: Patient History/Exam Limitations: no limitations Onset/Duration Of Symptoms: Days (1 week) Current Symptoms Are (Timing): Better Additional Complaint(s): Bradly Doherty, a 46 year old male presents to the ED for an medical injection for schizophrenia. Reports he missed his appointment at the clinic so he came to the ED for the injection. Reports has been constantly coughing onset one week ago and sometimes has trouble breathing. PMD:Non [facility] Provider Past Medical History Reviewed: Historical Data, Nursing Documentation, Vital Signs Vital Signs: Last Vital Signs Temp 98.2 F 11/16/17 07:26 Pulse 78 11/16/17 07:26 Resp 20 11/16/17 07:26 BP 128/78 11/16/17 07:26 Pulse Ox 100 11/16/17 11:13 - Medical History PMH: Bipolar Disorder, Depression, HTN, Schizophrenia Denies: Diabetes, Hepatitis, HIV, Chronic Kidney Disease, Seizures, Sexually Transmitted Disease - Surgical History Surgical History: No Surg Hx - Family History Family History: States: Unknown Family Hx - Immunization History Hx Tetanus Toxoid Vaccination: No Hx Influenza Vaccination: No Hx Pneumococcal Vaccination: No - Home Medications Home Medications: Ambulatory Orders Medication Instructions Recorded Lisinopril [Prinivil] 10 mg PO DAILY #30 05/03/17 Sertraline [Zoloft] 50 mg PO DAILY 30 Days #30 tab 09/21/17 risperiDONE [RisperDAL Tab] 1 mg PO DAILY 30 Days #30 tab 09/21/17 risperiDONE [RisperDAL Tab] 1 mg PO HS 30 Days #30 tab 09/21/17 Ibuprofen [Motrin Tab] 600 mg PO Q6 #30 tab 10/01/17 Methylprednisolone [Medrol Dose 4 mg PO DAILY #21 mg 10/01/17 Pack (21 tabs)] Promethazine [Phenergan] 12.5 mg PO BID PRN #30 tab 10/01/17 Guaifenesin/Pseudoephedrne HCl 1 ter PO Q12H PRN #10 ter 11/16/17 [Mucinex D 600 mg-60 mg] - Allergies Allergies/Adverse Reactions: Allergies Allergy/AdvReac Type Severity Reaction Status Date / Time No Known Allergies Allergy Verified 06/15/17 20:25 Review of Systems ROS Statement: Except As Marked, All Systems Reviewed And Found Negative Constitutional: Negative for: Fever Respiratory: Positive for: Cough, Other (difficulty breathing) Physical Exam - Reviewed Nursing Documentation Reviewed: Yes Vital Signs Reviewed: Yes - Physical Exam Appears: Positive for: Well, Non-toxic, No Acute Distress Head Exam: Positive for: ATRAUMATIC, NORMAL INSPECTION, NORMOCEPHALIC Skin: Positive for: Normal Color, Warm, Dry Eye Exam: Positive for: Normal appearance, EOMI, PERRL ENT: Positive for: Normal ENT Inspection Neck: Positive for: Normal, Painless ROM, Supple Cardiovascular/Chest: Positive for: Regular Rate, Rhythm. Negative for: Murmur Respiratory: Positive for: Normal Breath Sounds. Negative for: Wheezing, Respiratory Distress Extremity: Positive for: Normal ROM. Negative for: Pedal Edema, Deformity Neurologic/Psych: Positive for: Alert, Oriented (x3), Gait - ECG O2 Sat by Pulse Oximetry: 100 (RA) Pulse Ox Interpretation: Normal Medical Decision Making Medical Decision Making: Time: 8:01 Initial Impression: Upper Respiratory Tract Infection and Schizophrenia Initial Plan: --Reevaluation Documented by Bolivar Lao acting as a scribe for Valerie Santo MD. All medical record entries made by the Scribe were at my direction and personally dictated by me. I have reviewed the chart and agree that the record accurately reflects my personal performance of the history, physical exam, medical decision making, and the department course for this patient. I have also personally directed, reviewed, and agree with the discharge instructions and disposition. Case d/w residential support worker. Patient's last dose of medication was one month ago. Will give risperdal IM as requested. Disposition - Clinical Impression Clinical Impression: URI (upper respiratory infection), Schizophrenia - Patient ED Disposition Is Patient to be Admitted: No Doctor Will See Patient In The: Office Counseled Patient/Family Regarding: Diagnosis - Disposition Referrals: [facility] [Outside] Disposition: Routine/Home Disposition Time: 11:12 Condition: STABLE Prescriptions: Guaifenesin/Pseudoephedrne HCl [Mucinex D 600 mg-60 mg] 1 ter PO Q12H PRN #10 ter PRN Reason: cough/congestion Instructions: Schizophrenia (ED) Forms: [employer] (Cymro) - POA Present On Arrival: None
[2017-11-16 11:49] VITALS: RESP 19; TEMP 97.8; O2SAT 98
== END 2017-11-16 11:49 | disposition home or self-care (01) ==
LOC: H.ER 07:17
DX: F20.9 Schizophrenia, unspecified (principal); R05 Cough; F31.9 Bipolar disorder, unspecified; I10 Essential (primary) hypertension; J06.9 Acute upper respiratory infection, unspecified

== ENCOUNTER 2017-12-02 19:48 | Emergency (ER) | payer MEDICAID ==
[2017-12-02 19:49] VITALS: BMI 23.3
[2017-12-02 19:57] VITALS: PULSE 74; RESP 18; TEMP 97.9; O2SAT 100
--- NOTE | 2017-12-02 20:31 | ED PDOC ---
HPI: CCC, URI, Sore Throat Time Seen by Provider: 12/02/17 20:14 Chief Complaint (Nursing): Flu-like Symptoms Chief Complaint (Provider): cough, body aches History Per: Patient Onset/Duration Of Symptoms: Days (x1) Additional Complaint(s): 47 year old male presents to the emergency department with complains of flu- like symptoms onset yesterday. Patient reports headache, rhinorrhea, dry cough and chills. He has not taken any medications to alleviate symptoms. No vomiting or diarrhea. PMD: Rose Walden Past Medical History Reviewed: Historical Data, Nursing Documentation, Vital Signs Vital Signs: Last Vital Signs Temp 97.9 F 12/02/17 19:55 Pulse 74 12/02/17 19:55 Resp 18 12/02/17 19:55 BP 153/95 H 12/02/17 19:55 Pulse Ox 100 12/02/17 20:38 - Medical History PMH: Bipolar Disorder, Depression, HTN, Schizophrenia - Surgical History Surgical History: No Surg Hx - Family History Family History: States: No Known Family Hx - Living Arrangements Living Arrangements: Other (lives in [facility]) - Social History Current smoker - smoking cessation education provided: No Alcohol: Social Drugs: Denies - Home Medications Home Medications: Ambulatory Orders Medication Instructions Recorded Lisinopril [Prinivil] 10 mg PO DAILY #30 05/03/17 Sertraline [Zoloft] 50 mg PO DAILY 30 Days #30 tab 09/21/17 risperiDONE [RisperDAL Tab] 1 mg PO DAILY 30 Days #30 tab 09/21/17 risperiDONE [RisperDAL Tab] 1 mg PO HS 30 Days #30 tab 09/21/17 Ibuprofen [Motrin Tab] 600 mg PO Q6 #30 tab 10/01/17 Methylprednisolone [Medrol Dose 4 mg PO DAILY #21 mg 10/01/17 Pack (21 tabs)] Promethazine [Phenergan] 12.5 mg PO BID PRN #30 tab 10/01/17 Guaifenesin/Pseudoephedrne HCl 1 ter PO Q12H PRN #10 ter 11/16/17 [Mucinex D 600 mg-60 mg] Acetaminophen [Tylenol 325mg tab] 650 mg PO Q4 PRN #1 bottle 12/02/17 Ibuprofen [Motrin] 600 mg PO Q6 PRN #15 tab 12/02/17 Oseltamivir Phosphate [Tamiflu] 75 mg PO BID #9 capsule 12/02/17 - Allergies Allergies/Adverse Reactions: Allergies Allergy/AdvReac Type Severity Reaction Status Date / Time No Known Allergies Allergy Verified 12/02/17 19:54 Review of Systems ROS Statement: Except As Marked, All Systems Reviewed And Found Negative Constitutional: Positive for: Fever (subjective), Chills, Other (body aches) ENT: Positive for: Nose Congestion Cardiovascular: Positive for: Chest Pain (secondary to cough) Respiratory: Positive for: Cough Gastrointestinal: Negative for: Nausea, Vomiting, Abdominal Pain, Diarrhea Genitourinary Male: Negative for: Dysuria Neurological: Positive for: Headache. Negative for: Dizziness Physical Exam - Reviewed Nursing Documentation Reviewed: Yes Vital Signs Reviewed: Yes - Physical Exam Appears: Positive for: Non-toxic, No Acute Distress Head Exam: Positive for: ATRAUMATIC, NORMAL INSPECTION, NORMOCEPHALIC Skin: Positive for: Normal Color, Warm. Negative for: Rash Eye Exam: Positive for: Normal appearance, EOMI, PERRL ENT: Positive for: Normal ENT Inspection Cardiovascular/Chest: Positive for: Regular Rate, Rhythm Respiratory: Positive for: Normal Breath Sounds. Negative for: Respiratory Distress Gastrointestinal/Abdominal: Positive for: Normal Exam, Soft. Negative for: Tenderness Extremity: Positive for: Normal ROM. Negative for: Deformity, Swelling Neurologic/Psych: Positive for: Alert, Oriented - ECG O2 Sat by Pulse Oximetry: 100 (RA) Pulse Ox Interpretation: Normal - Other Rad CXR X-Ray: Interpreted by Me, Viewed By Me X-Ray Interpretation: no acute finding Medical Decision Making Medical Decision Making: Time: 20:26 Impression: 47 year old male with flu-like symptoms Plan: --Chest X-Ray --Tylenol 975 mg PO --Motrin 600 mg PO --Tamiflu 75 mg PO --Reevaluation Will d/c with rx tamiflu, tylenol and motrin. Advised fluids, rest and follow- up with clinic. Scribe Attestation: Documented by Dahiana Parmar, acting as a scribe for Yeimi Paula PA-C Provider Scribe Attestation: All medical record entries made by the Scribe were at my direction and personally dictated by me. I have reviewed the chart and agree that the record accurately reflects my personal performance of the history, physical exam, medical decision making, and the department course for this patient. I have also personally directed, reviewed, and agree with the discharge instructions and disposition. Disposition - Clinical Impression Clinical Impression: Influenza-like symptoms - Patient ED Disposition Is Patient to be Admitted: No Counseled Patient/Family Regarding: Studies Performed, Diagnosis, Need For Followup, Rx Given - Disposition Referrals: [facility] [Outside] Disposition: Routine/Home Disposition Time: 21:13 Condition: STABLE Additional Instructions: Take prescription medications as directed. Rest and plenty of fluids. Follow-up with clinic in 2-3 days. Prescriptions: Acetaminophen [Tylenol 325mg tab] 650 mg PO Q4 PRN #1 bottle PRN Reason: Fever >100.4 F Ibuprofen [Motrin] 600 mg PO Q6 PRN #15 tab PRN Reason: Pain, Moderate (4-7) Oseltamivir Phosphate [Tamiflu] 75 mg PO BID #9 capsule Instructions: Flu, Adult (DC) Forms: [employer] (Romanian)
[2017-12-02 21:35] VITALS: BP 139/87
--- NOTE | 2017-12-03 08:11 | RAD ---
HISTORY: cough COMPARISON: Chest radiographs 10/01/2017. TECHNIQUE: Chest PA and lateral FINDINGS: LUNGS: No acute infiltrate is identified bilaterally. PLEURA: No significant pleural effusion identified. No pneumothorax apparent. CARDIOVASCULAR: Normal. OSSEOUS STRUCTURES: No significant abnormalities. VISUALIZED UPPER ABDOMEN: Moderate gaseous distention of the splenic flexure and mild distention of this nondependent gastric viscus with air minimally elevates left hemidiaphragm. OTHER FINDINGS: None. IMPRESSION: No acute cardiopulmonary disease appreciable in the interval.
== END 2017-12-02 21:35 | disposition home or self-care (01) ==
LOC: H.ER 19:48
DX: J11.1 Influenza due to unidentified influenza virus with other respiratory manifestations (principal)

== ENCOUNTER 2017-12-12 21:14 | Inpatient (IN) | payer MEDICAID ==
[2017-12-12 21:15] VITALS: BMI 23.3
--- NOTE | 2017-12-12 23:46 | ED PDOC ---
HPI: Psych/Substance Abuse Time Seen by Provider: 12/12/17 21:27 Chief Complaint (Nursing): Psychiatric Evaluation Chief Complaint (Provider): SI Additional Complaint(s): 47 yo male with history of schizophrenia presents with SI. Pt states he has a cough and he feels his medications are not working well for him. Denies Chest pain, SOB Past Medical History Reviewed: Historical Data, Nursing Documentation, Vital Signs Vital Signs: Last Vital Signs Temp 98.4 F 12/12/17 21: Pulse 97 H 12/12/17 21:22 Resp 20 12/12/17 21:22 BP 171/97 H 12/12/17 21:22 Pulse Ox 100 12/12/17 21:22 - Medical History PMH: Bipolar Disorder, Depression, HTN, Schizophrenia Denies: Diabetes, Hepatitis, HIV, Chronic Kidney Disease, Seizures, Sexually Transmitted Disease - Surgical History Surgical History: No Surg Hx - Family History Family History: States: Unknown Family Hx - Immunization History Hx Tetanus Toxoid Vaccination: No Hx Influenza Vaccination: No Hx Pneumococcal Vaccination: No - Home Medications Home Medications: Ambulatory Orders Medication Instructions Recorded Lisinopril [Prinivil] 10 mg PO DAILY #30 05/03/17 Sertraline [Zoloft] 50 mg PO DAILY 30 Days #30 tab 09/21/17 risperiDONE [RisperDAL Tab] 1 mg PO DAILY 30 Days #30 tab 09/21/17 risperiDONE [RisperDAL Tab] 1 mg PO HS 30 Days #30 tab 09/21/17 Ibuprofen [Motrin Tab] 600 mg PO Q6 #30 tab 10/01/17 Methylprednisolone [Medrol Dose 4 mg PO DAILY #21 mg 10/01/17 Pack (21 tabs)] Promethazine [Phenergan] 12.5 mg PO BID PRN #30 tab 10/01/17 Guaifenesin/Pseudoephedrne HCl 1 ter PO Q12H PRN #10 ter 11/16/17 [Mucinex D 600 mg-60 mg] Acetaminophen [Tylenol 325mg tab] 650 mg PO Q4 PRN #1 bottle 12/02/17 Ibuprofen [Motrin] 600 mg PO Q6 PRN #15 tab 12/02/17 Oseltamivir Phosphate [Tamiflu] 75 mg PO BID #9 capsule 12/02/17 - Allergies Allergies/Adverse Reactions: Allergies Allergy/AdvReac Type Severity Reaction Status Date / Time No Known Allergies Allergy Verified 12/12/17 21:22 Review of Systems ROS Statement: Except As Marked, All Systems Reviewed And Found Negative Constitutional: Negative for: Fever, Chills ENT: Negative for: Nose Discharge Cardiovascular: Negative for: Chest Pain Respiratory: Positive for: Cough. Negative for: Shortness of Breath Gastrointestinal: Negative for: Nausea, Vomiting, Abdominal Pain Physical Exam - Reviewed Nursing Documentation Reviewed: Yes Vital Signs Reviewed: Yes - Physical Exam Appears: Positive for: Well, Non-toxic, No Acute Distress Head Exam: Positive for: ATRAUMATIC, NORMAL INSPECTION, NORMOCEPHALIC Skin: Positive for: Normal Color, Warm, DRY Eye Exam: Positive for: Normal appearance ENT: Positive for: Normal ENT Inspection Neck: Positive for: Normal, Painless ROM Cardiovascular/Chest: Positive for: Regular Rate, Rhythm Respiratory: Positive for: CNT, Normal Breath Sounds Gastrointestinal/Abdominal: Positive for: Normal Exam, Bowel Sounds, Soft Back: Positive for: Normal Inspection Extremity: Positive for: Normal ROM Neurologic/Psych: Positive for: Alert, Oriented - ECG O2 Sat by Pulse Oximetry: 100 Disposition - Clinical Impression Clinical Impression: Schizoaffective disorder - Patient ED Disposition Is Patient to be Admitted: Transfer of Care - Disposition Disposition: Transfer of Care Disposition Time: 00:00 Condition: STABLE Instructions: Schizoaffective Disorder
[2017-12-13 00:31] LABS: HEMOGLOBIN 11.5 g/dL (12.0-18.0); MEAN CELL VOLUME 76.3 fl (80.0-94.0); MEAN CORPUSCULAR HGB CONC 32.8 g/dL (33.0-37.0); RBC 4.59 Mil/uL (4.40-5.90); RED CELL DISTRIBUTION WIDTH 15.4 % (11.5-14.5); WHITE BLOOD COUNT 8.9 K/uL (4.8-10.8)
[2017-12-13 00:57] LABS: ALB/GLOB RATIO 1.1 (1.0-2.1); ALBUMIN 3.8 g/dL (3.5-5.0); ALT/SGPT 29 U/L (21-72); AST/SGOT 19 U/L (17-59); BLOOD UREA NITROGEN 10 mg/dl (9-20); CALCIUM 9.2 mg/dL (8.4-10.2); GFR AFRICAN-AMERICAN > 60; GFR NON-AFRICAN AMERICAN 60
--- NOTE | 2017-12-13 01:27 | ED PDOC ---
- Laboratory Results Result Diagrams: 12/13/17 00:29 12/13/17 00:29 - ECG ECG: Positive for: Viewed By Me (reviewed by ED attending) ECG Rhythm: Positive for: Sinus Rhythm O2 Sat by Pulse Oximetry: 100 - Radiology X-Ray: Viewed By Me X-Ray Interpretation: No Acute Disease - Progress ED Course And Treament: Case endorsed to narrative writer from Marlene THOMAS pending xray, labs, urine for psych admission Medical Decision Making Medical Decision Making: Patient medically stable for psych admission. Disposition - Clinical Impression Clinical Impression: Schizoaffective disorder - POA Present On Arrival: None - Disposition Disposition: Admitted as In-Patient Disposition Time: 02:07 Condition: STABLE
[2017-12-13 01:44] LABS: URINE BILIRUBIN NEGATIVE (NEGATIVE); URINE BLOOD NEGATIVE (NEGATIVE); URINE CLARITY CLEAR (Clear); URINE COLOR STRAW (YELLOW); URINE GLUCOSE (UA) NEG (Normal); URINE LEUKOCYTE ESTERASE NEG Leu/uL (Negative); URINE PROTEIN NEGATIVE (NEGATIVE); URINE UROBILINOGEN 0.2-1.0 mg/dL (0.2-1.0)
[2017-12-13 02:01] LABS: PHENCYCLIDINE, UR NEGATIVE (NEGATIVE)
[2017-12-13 02:02] LABS: BARBITURATES, UR NEGATIVE (NEGATIVE); BENZODIAZEPINES, UR NEGATIVE (NEGATIVE); OPIATES, UR NEGATIVE (NEGATIVE)
--- NOTE | 2017-12-13 03:40 | PCM.BM ---
<Francisco J Freeman - Last Filed: 12/13/17 03:39> Treatment Plan Problems - Problems identified on initial assessmt Auditory Hallucinations Date Initiated: 12/13/17 Time Initiated: 03:39 Assessment reference: NA Status: Active Treatment assets and liabiliti Patient Assests: adapts well, cooperative, resourceful, self-reliant, ADL independent, physically healthy, negotiates basic needs, good past tx response, cognitively intact Patient Liabilities: financial problems, poor support system, substance abuse - Milieu Protocol Maintain good personal hygiene: every shift Encourage regular showers, every shift Remind patient to perform daily oral care, every shift Assist patient to perform ADL's Maintain personal safety: daily Educate patient to report safety concerns to staff, daily Monitor environment for contraband/sharps Medication safety: Monitor for expected outcome, potential side effects: daily, Assess barriers to learning: daily, Assess readiness for medication education: daily <Patricia Roper - Last Filed: 12/13/17 09:39> - Diagnosis (1) Schizoaffective disorder Status: Acute Interventions: Medication management, Individual and group therapy, Psychoeducation 12/13/17 09:39 <Felicitas Ingram - Last Filed: 12/14/17 14:50> Family Contact Family involvement: Patient does not wish Family/SO involvement - Outside Agency [facility] involvment: Following patient during stay, Information-sharing Agency contact name: Eddy- case briefer Agency contact number: [phone] ext. [phone] [facility] Care involvment: Information-sharing Agency contact number: - Goals for Treatment Patient goals for treatment: Pt to be encouraged to attend activity and clinical groups 3-5x per week to identify at least 2 contributing factors to depression and suicide attempt. Psycho-education to be provided to patient/ family regarding benefits of medications and treatment adherence. Pt to be encouraged to participate in group milieu to develop effective coping skills to reduce depression and free of suicide ideation. Coordinate discharge resource needs by providing referral for psychiatric treatment follow up in the community. Discharge/Continuing Care - Education Needs Education Needs: Patient Medication, Patient Diagnosis/Disease Process, Patient Coping Skills, Patient Placement options, Patient Community resources, Patient Activities of Daily Living, Patient Nutrition, Patient Health Practices/Safety, Patient Personal Hygiene/Grooming, Patient Aftercare Safety Plan - Discharge Discharge Criteria: Tolerates medication w/o severe side effects, Free of Suicidal thoughts, Free of agitation, Normal sleep pattern, Ability to care for self, No longer exhibiting s/s of withdrawal Discharge to:: Correction - Additional Comments 12/14/17 14:48 Pt seen and discussed in team meeting. Reason for admission reviewed and discussed. Pt's social and medical issues reviewed. Pt's medications reviewed. Pt's goals and treatment plan reviewed. Pt reported feeling goal oriented and the desire to get better and go back to work and in the community. After care reviewed and discussed. Pt agreeable with treatment plan. SW to continue to follow case. - Treatment Team Participation Discussed with Family/SO: No Was Patient/Family/SO present at Treatment Team Meeting: Yes
[2017-12-13] MEDS ORDERED: DiphenhydrAMINE 50 mg/ml Inj IM PRN (03:41)
[2017-12-13] MEDS ORDERED: Alum-Mag Hydrox-Simethicone Susp (30 mL) PO PRN (03:41)
[2017-12-13] MEDS ORDERED: Magnesium Hydroxide Susp 30 ml UD PO PRN (03:41)
[2017-12-13 06:05] VITALS: O2SAT 20
[2017-12-13 06:40] LABS: BASO # 0.2 K/uL (0.0-0.2); BASO % 2.8 % (0.0-2.0); EOS # 0.2 K/uL (0.0-0.7); EOS % 2.2 % (0.0-4.0); HEMOGLOBIN 11.9 g/dL (12.0-18.0); LYMPH # 2.3 K/uL (1.0-4.3); LYMPH % 27.9 % (20.0-40.0); MEAN CELL VOLUME 76.6 fl (80.0-94.0); MEAN CORPUSCULAR HEMOGLOBIN 25.3 pg (27.0-31.0); MEAN PLATELET VOLUME 7.5 fl (7.2-11.7); MONO # 0.6 K/uL (0.0-0.8); MONO % 7.7 % (0.0-10.0); NEUT # 4.9 K/uL (1.8-7.0); NEUT % 59.4 % (50.0-75.0); NRBC % 0.1 % (0.0-0.0); RBC 4.71 Mil/uL (4.40-5.90); RED CELL DISTRIBUTION WIDTH 15.4 % (11.5-14.5); WHITE BLOOD COUNT 8.2 K/uL (4.8-10.8)
[2017-12-13 07:06] LABS: T4 9.82 ug/dl (5.5-11.0)
--- NOTE | 2017-12-13 07:35 | CARD ---
APPROVED REPORT EKG Measurement Heart [id number] <Conclusion> Normal sinus rhythm Voltage criteria for left ventricular hypertrophy Abnormal ECG
[2017-12-13] MEDS ORDERED: Albuterol HFA 90 mcg/actuation (8 g) INH PRN (09:26)
--- NOTE | 2017-12-13 09:26 | RAD ---
HISTORY: admission, 3NP COMPARISON: Chest radiograph dated 12/02/2017 FINDINGS: LUNGS: No active pulmonary disease. PLEURA: No significant pleural effusion identified, no pneumothorax apparent. CARDIOVASCULAR: Normal. OSSEOUS STRUCTURES: No significant abnormalities. VISUALIZED UPPER ABDOMEN: Normal. OTHER FINDINGS: None. IMPRESSION: No active disease.
--- NOTE | 2017-12-13 09:45 | PCM.PSYCH ---
Initial Psychiatric Evaluation - Initial Psychiatric Evaluation Type of Admission: Voluntary Legal Status: Capacity Chief Complaint (in patient's own words): "I'm depressed." Patient's Reaction to Hospitalization: HPI: 47 yo male w/ h/o schizophrenia, presents w/ worsening depression and suicidal ideation to cut his wrists in the context of cocaine abuse. Patient reports that he last heard AH two days ago. No current AH/VH/paranoia/ delusions. He is able to contract for safety, but does report that he continues to have intermittent suicidal ideations w/o current plan/intent. + Depressed mood +anxiety +low motivation +hopelessness +sleep/appetite disturbances. No current signs/symptoms of westley. PPHx: Multiple past psychiatric admissions for schizoaffective disorder; currently time Zoloft 50 mg PO Daily, Risperdal 2 mg PO Q12, Trazodone 100 mg PO HS; patient was treated w/ Risperdal Consta in the past, but he states that he no longer takes the injection PMHx: HTN (on Lisinopril 2.5 mg PO Daily); patient reports that he was diagnosed with the flu two weeks ago, but he did not complete treatment w/ Tamiflu which was prescribed to him ALL: NKDA SHx: Denied drugs/ etoh/ cig to lead technical writer, but Utox +Cocaine Current Medications: Active Medications Generic Name Dose Route Start Last Admin Trade Name Freq PRN Reason Stop Dose Admin Acetaminophen 650 mg 12/13/17 03:41 Tylenol 325mg Tab PO Q4 PRN Pain, moderate (4-7) Al Hydrox/Mg Hydrox/Simethicone 30 ml 12/13/17 03:41 Maalox Plus 30 Ml PO Q4 PRN Dyspepsia Albuterol 2 puff 12/13/17 09:26 Ventolin Hfa 90 Mcg/Actuation (8 G) INH Q6 PRN Shortness of Breath Diphenhydramine HCl 50 mg 12/13/17 03:41 Benadryl IM Q6 PRN Extrapyramidal S/S Unable PO Diphenhydramine HCl 50 mg 12/13/17 03:41 Benadryl PO Q6 PRN Extrapyramidal Symptoms Diphenhydramine HCl 50 mg 12/13/17 03:45 Benadryl PO HS PRN Sleep Haloperidol 5 mg 12/13/17 03:41 Haldol PO Q4 PRN Agitation Haloperidol Lactate 5 mg 12/13/17 03:41 Haldol IM Q4 PRN Agitation, Unable to Take PO Influenza Virus Vaccine 0.5 ml 12/13/17 10:00 Afluria (Pf)(18yr & Older) IM 12/13/17 10:01 .ONCE ONE Lisinopril 2.5 mg 12/13/17 09:30 Zestril PO DAILY CLAUDIA Lorazepam 2 mg 12/13/17 03:41 Ativan IM Q4 PRN Anxiety/Agitation,Unable PO Lorazepam 2 mg 12/13/17 03:41 Ativan PO Q4 PRN Anxiety/Agitation Magnesium Hydroxide 30 ml 12/13/17 03:41 Milk Of Magnesia PO HS PRN Constipation Risperidone 2 mg 12/13/17 09:30 Risperdal Tab PO Q12 CLAUDIA Sertraline HCl 100 mg 12/13/17 09:30 Zoloft PO DAILY CLAUDIA Trazodone HCl 100 mg 12/13/17 22:00 Desyrel PO HS CLAUDIA Past Psychiatric History - Past Psychiatric History Previous Treatment History: Inpatient Pertinent Medical Hx (Current Medical&Sleep Prob, Allergies): Allergies Allergy/AdvReac Type Severity Reaction Status Date / Time No Known Allergies Allergy Verified 12/12/17 21:22 Lisinopril [Prinivil] 10 mg PO DAILY #30 05/03/17 Sertraline [Zoloft] 50 mg PO DAILY 30 Days #30 tab 09/21/17 risperiDONE [RisperDAL Tab] 1 mg PO DAILY 30 Days #30 tab 09/21/17 risperiDONE [RisperDAL Tab] 1 mg PO HS 30 Days #30 tab 09/21/17 Ibuprofen [Motrin Tab] 600 mg PO Q6 #30 tab 10/01/17 Guaifenesin/Pseudoephedrne HCl [Mucinex D 600 mg-60 mg] 1 ter PO Q12H PRN #10 ter 11/16/17 Ibuprofen [Motrin] 600 mg PO Q6 PRN #15 tab 12/02/17 Oseltamivir Phosphate [Tamiflu] 75 mg PO BID #9 capsule 12/02/17 Albuterol HFA [Ventolin HFA 90 mcg/actuation (8 g)] 1 puff INH Q6 12/13/17 traZODone [Desyrel] 100 mg PO HS 12/13/17 Review of Systems - Psychiatric Psychiatric: Abnormal Sleep Pattern, Anhedonia, Anxiety, Auditory Hallucinations , Change in Appetite, Depression, Difficulty Concentrating, Hallucinations, Hopelessness, Irritability, Mood Swings, Suicidal Ideation Mental Status Examination - Personal Presentation Personal Presentation: Looks stated age - Affect Affect: Constricted, Depressed - Motor Activity Motor Activity: Calm - Reliability in Providing Information Reliability in Providing Information: Fair - Speech Speech: Organized, Coherent - Mood Mood: Depressed, Anxious - Formal Thought Process Formal Thought Process: No Impairment - Hallucinations/Delusions Additional comments: Denies current AH/VH/paranoia/delusions - Obsessions/Compulsions Obsessions: No Compulsions: No - Cognitive Functions Orientation: Person, Place, Situation, Time Sensorium: Alert Attention/Concentration: Attentive Estimate of Intelligence: Average Judgement: Intact, as evidence by: Insight regarding need for hospitalization Memory: Recent intact, as evidence by: Ability to recall events of the day, Remote intact, as evidenced by: Abilit to recall sig. life events, Remote intact , as evidenced by: Ability to recall historical events - Risk Risk: Suicidal, Diminished functioning - Strength & Assets Inventory Strength & Assets Inventory: Cooperative DSM 5 DX - DSM 5 DSM 5 Diagnosis: Schizoaffective Disorder; Cocaine Use Disorder - Recommended/Plan of Treatment Treatment Recommendations and Plan of Treatment: Schizoaffective Disorder; Cocaine Use Disorder -Admit to psychiatry unit -Individual and group therapy provided -Restart Trazodone 100 mg PO HS and Risperdal 2 mg PO Q12 -Increase Zoloft to 100 mg PO Daily -Medicine consult -Psychoeducation re: dangers of cocaine abuse -Disposition planning -No 1:1 indicated at this time Projected ELOS: 5-7 days Discharge Plan and Discharge Criteria: Discharge when patient is psychiatrically stable - Smoking Cessation Smoking Cessation Initiated: No Reason for not providing: Not indicated
[2017-12-13] MEDS ORDERED: Influenza Vaccine 18yr & older 0.5 ML/45 MCG SYR IM ONE (10:00)
--- NOTE | 2017-12-13 19:07 | CP.PCM.CON ---
History of Present Illness - History of Present Illness History of Present Illness: Pt is a 47 y.o. M w/ PMHx of HTN, depression, and schizophrenia admitted for suicidal ideation. Pt complaints of unproductive cough x 2 days associated with chest wall pain. Admits to having flu 2 weeks ago and was given Tamiflu. He takes Lisinopril for HTN. Denies fever, n/v/d, or any burning sensation. PMH: HTn, schizophrenia, depression, anxiety. SH: denies smoking. Use of cocaine. Labs: CBC wnl. CMP wnl. Chest X-ray negative. PE: Vitals: BP: 136/93 HR: 88 RR: 20 T: 97.8F Lungs clear w/ vesicular breath sounds in all elizondo. Cardio: normal S1 S2. RRR. No extra heart sounds. Past Patient History - Infectious Disease Hx of Infectious Diseases: None - Tetanus Immunizations Tetanus Immunization: Unknown - Past Medical History & Family History Past Medical History?: Yes - Past Social History Smoking Status: Heavy Smoker > 10 Cigarettes Daily - CARDIAC Hx Hypertension: Yes - PULMONARY Hx Asthma: Yes - NEUROLOGICAL Hx Seizures: No - HEENT Hx HEENT Problems: No - RENAL Hx Chronic Kidney Disease: No - ENDOCRINE/METABOLIC Hx Endocrine Disorders: No - HEMATOLOGICAL/ONCOLOGICAL Hx Human Immunodeficiency Virus (HIV): No - INTEGUMENTARY Hx Dermatological Problems: No - MUSCULOSKELETAL/RHEUMATOLOGICAL Hx Musculoskeletal Disorders: No - GASTROINTESTINAL Hx Gastrointestinal Disorders: No - GENITOURINARY/GYNECOLOGICAL Hx Sexually Transmitted Disorders: No - PSYCHIATRIC Hx Depression: Yes Hx Schizophrenia: Yes Hx Substance Use: Yes (crack cocaine) - SURGICAL HISTORY Hx Surgeries: No - ANESTHESIA Hx Anesthesia: No Meds Allergies/Adverse Reactions: Allergies Allergy/AdvReac Type Severity Reaction Status Date / Time No Known Allergies Allergy Verified 12/12/17 21:22 - Medications Medications: Current Medications Acetaminophen (Tylenol 325mg Tab) 650 mg PO Q4 PRN PRN Reason: Pain, moderate (4-7) Al Hydrox/Mg Hydrox/Simethicone (Maalox Plus 30 Ml) 30 ml PO Q4 PRN PRN Reason: Dyspepsia Albuterol (Ventolin Hfa 90 Mcg/Actuation (8 G)) 2 puff INH Q6 PRN PRN Reason: Shortness of Breath Last Admin: 12/13/17 12:44 Dose: 2 puff Diphenhydramine HCl (Benadryl) 50 mg IM Q6 PRN PRN Reason: Extrapyramidal S/S Unable PO Diphenhydramine HCl (Benadryl) 50 mg PO Q6 PRN PRN Reason: Extrapyramidal Symptoms Diphenhydramine HCl (Benadryl) 50 mg PO HS PRN PRN Reason: Sleep Haloperidol (Haldol) 5 mg PO Q4 PRN PRN Reason: Agitation Haloperidol Lactate (Haldol) 5 mg IM Q4 PRN PRN Reason: Agitation, Unable to Take PO Hydrochlorothiazide (Microzide) 12.5 mg PO DAILY [facility] Lorazepam (Ativan) 2 mg IM Q4 PRN PRN Reason: Anxiety/Agitation,Unable PO Lorazepam (Ativan) 2 mg PO Q4 PRN PRN Reason: Anxiety/Agitation Magnesium Hydroxide (Milk Of Magnesia) 30 ml PO HS PRN PRN Reason: Constipation Risperidone (Risperdal Tab) 2 mg PO Q12 [facility] Last Admin: 12/13/17 12:50 Dose: 2 mg Sertraline HCl (Zoloft) 100 mg PO DAILY [facility] Last Admin: 12/13/17 12:44 Dose: 100 mg Trazodone HCl (Desyrel) 100 mg PO HS [facility] Physical Exam - Constitutional Appears: Well, Non-toxic, Toxic - Head Exam Head Exam: ATRAUMATIC - ENT Exam ENT Exam: Mucous Membranes Moist - Respiratory Exam Respiratory Exam: Clear to Auscultation Bilateral. absent: Rales, Wheezes - Cardiovascular Exam Cardiovascular Exam: REGULAR RHYTHM. absent: +S1, +S2 - GI/Abdominal Exam GI & Abdominal Exam: Normal Bowel Sounds. absent: Distended, Guarding, Soft, Tenderness - Extremities Exam Extremities exam: Positive for: normal inspection - Psychiatric Exam Psychiatric exam: Normal Affect Results - Vital Signs Recent Vital Signs: Last Vital Signs Temp 98.1 F 12/13/17 16:04 Pulse 85 12/13/17 16:04 Resp 19 12/13/17 16:04 BP 117/62 12/13/17 16:04 Pulse Ox 20 L 12/13/17 06:00 - Labs Result Diagrams: 12/13/17 05:57 12/13/17 00:29 Labs: Laboratory Results - last 24 hr 12/13/17 12/13/17 12/13/17 00:29 00:29 01:30 WBC 8.9 RBC 4.59 Hgb 11.5 L Hct 35.0 MCV 76.3 L D MCH 25.0 L MCHC 32.8 L RDW 15.4 H Plt Count 298 MPV Neut % (Auto) Lymph % (Auto) [place] % (Auto) Eos % (Auto) Baso % (Auto) Neut # (Auto) Lymph # (Auto) [place] # (Auto) Eos # (Auto) Baso # (Auto) Sodium 142 Potassium 4.2 Chloride 100 Carbon Dioxide 27 Anion Gap 19 BUN 10 Creatinine 1.3 Est GFR ( Amer) > 60 Est GFR (Non-Af Amer) 60 Random Glucose 110 Hemoglobin A1c Calcium 9.2 Total Bilirubin 0.3 AST 19 ALT 29 Alkaline Phosphatase 76 Total Protein 7.2 Albumin 3.8 Globulin 3.4 Albumin/Globulin Ratio 1.1 Triglycerides Cholesterol LDL Cholesterol Direct HDL Cholesterol Thyroxine (T4) TSH 3rd Generation Urine Color Straw Urine Clarity Clear Urine pH 6.0 Ur Specific Tennyson 1.009 Urine Protein Negative Urine Glucose (UA) Neg Urine Ketones Negative Urine Blood Negative Urine Nitrate Negative Urine Bilirubin Negative Urine Urobilinogen 0.2-1.0 Ur Leukocyte Esterase Neg Urine RBC (Auto) 1 Urine Opiates Screen Urine Methadone Screen Ur Barbiturates Screen Ur Phencyclidine Scrn Ur Amphetamines Screen U Benzodiazepines Scrn U Oth Cocaine Metabols U Cannabinoids Screen Alcohol, Quantitative < 10 RPR Influenza Typ A,B (EIA) 12/13/17 12/13/17 12/13/17 01:30 05:57 05:57 WBC 8.2 RBC 4.71 Hgb 11.9 L Hct 36.1 MCV 76.6 L MCH 25.3 L MCHC 33.0 RDW 15.4 H Plt Count 296 MPV 7.5 Neut % (Auto) 59.4 Lymph % (Auto) 27.9 [place] % (Auto) 7.7 Eos % (Auto) 2.2 Baso % (Auto) 2.8 H Neut # (Auto) 4.9 Lymph # (Auto) 2.3 [place] # (Auto) 0.6 Eos # (Auto) 0.2 Baso # (Auto) 0.2 Sodium Potassium Chloride Carbon Dioxide Anion Gap BUN Creatinine Est GFR ( Amer) Est GFR (Non-Af Amer) Random Glucose Hemoglobin A1c Calcium Total Bilirubin AST ALT Alkaline Phosphatase Total Protein Albumin Globulin Albumin/Globulin Ratio Triglycerides 46 D Cholesterol 135 LDL Cholesterol Direct 76 HDL Cholesterol 39 Thyroxine (T4) 9.82 TSH 3rd Generation 0.70 Urine Color Urine Clarity Urine pH Ur Specific Tennyson Urine Protein Urine Glucose (UA) Urine Ketones Urine Blood Urine Nitrate Urine Bilirubin Urine Urobilinogen Ur Leukocyte Esterase Urine RBC (Auto) Urine Opiates Screen Negative Urine Methadone Screen Negative Ur Barbiturates Screen Negative Ur Phencyclidine Scrn Negative Ur Amphetamines Screen Negative U Benzodiazepines Scrn Negative U Oth Cocaine Metabols Positive H U Cannabinoids Screen Negative Alcohol, Quantitative RPR Influenza Typ A,B (EIA) 12/13/17 12/13/17 12/13/17 05:57 05:57 11:01 WBC RBC Hgb Hct MCV MCH MCHC RDW Plt Count MPV Neut % (Auto) Lymph % (Auto) [place] % (Auto) Eos % (Auto) Baso % (Auto) Neut # (Auto) Lymph # (Auto) [place] # (Auto) Eos # (Auto) Baso # (Auto) Sodium Potassium Chloride Carbon Dioxide Anion Gap BUN Creatinine Est GFR ( Amer) Est GFR (Non-Af Amer) Random Glucose Hemoglobin A1c 5.9 Calcium Total Bilirubin AST ALT Alkaline Phosphatase Total Protein Albumin Globulin Albumin/Globulin Ratio Triglycerides Cholesterol LDL Cholesterol Direct HDL Cholesterol Thyroxine (T4) TSH 3rd Generation Urine Color Urine Clarity Urine pH Ur Specific Tennyson Urine Protein Urine Glucose (UA) Urine Ketones Urine Blood Urine Nitrate Urine Bilirubin Urine Urobilinogen Ur Leukocyte Esterase Urine RBC (Auto) Urine Opiates Screen Urine Methadone Screen Ur Barbiturates Screen Ur Phencyclidine Scrn Ur Amphetamines Screen U Benzodiazepines Scrn U Oth Cocaine Metabols U Cannabinoids Screen Alcohol, Quantitative RPR Nonreactive Influenza Typ A,B (EIA) Negative for flu a/b Assessment & Plan - Assessment and Plan (Free Text) Assessment: Assessment: 47 y.o. M w/ PMHx of HTN, admitted for suicidal ideation, complains of dry cough in the setting of recent viral illness 1- Dry cough: - unproductive, negative chest X-ray. - possibly a side effect of lisinopril vs residual post nasal drip - hold lisinopril. 2- HTN: - controlled - D/C Lisinopril - HTZ 30mg po daily started Stable Full Code
--- NOTE | 2017-12-14 12:54 | PCM.PYCHPN ---
Psychiatric Progress Note - Psychiatric Progress Note Patient seen today, length of contact: Patient evaluated, case discussed with team, chart reviewed Patient Chief Complaint: "I'm depressed." Problems Identified/Issues Discussed: Patient reports that he continues to feel depressed. He reports that he last heard AH yesterday. He continues to feel hopeless at times and reports sleep/ appetite disturbances. Psychoeducation provided on the dangers of cocaine abuse. He denies current suicidal ideation/plan/intent. Medication Change: No Medical Record Reviewed: Yes Consults ordered or reviewed: Medicine consult Mental Status Examination - Cognitive Function Orientation: Person, Place, Situation, Time Memory: Intact Attention: WNL Concentration: WNL Association: WN Fund of Knowledge: WN - Mood Mood: Depressed, Anxious - Affect Affect: Constricted, Depressed - Formal Thought Process Formal Thought Process: No Impairment Psychotic Thoughts and Behaviors: +AH yesterday, none current - Suicidal Ideation Suicidal Ideation: No - Homicidal Ideation Homicidal Ideation: No Goal/Treatment Plan - Goal/Treatment Plan Need for Continued Stay: Remain at risks for inpatient hospitalization, Severe depression anxiety, Discharge may exacerbated symptoms Progress Toward Problem(s) and Goals/Treatment Plan: Schizoaffective Disorder; Cocaine Use Disorder -Individual and group therapy provided -Continue Trazodone 100 mg PO HS and Risperdal 2 mg PO Q12 -Continue Zoloft to 100 mg PO Daily -Medicine consult appreciated -Psychoeducation re: dangers of cocaine abuse -Disposition planning Estimated Date of D/C: 12/17/17
--- NOTE | 2017-12-15 07:21 | PCM.PYCHPN ---
Psychiatric Progress Note - Psychiatric Progress Note Patient seen today, length of contact: Patient evaluated, case discussed with team, chart reviewed Patient Chief Complaint: "I'm depressed." Problems Identified/Issues Discussed: Patient reports that he continues to feel depressed. No current AH. He continues to feel hopeless at times and reports sleep/appetite disturbances. Psychoeducation provided on the dangers of cocaine abuse. He denies current suicidal ideation/plan/intent. Medication Change: No Medical Record Reviewed: Yes Consults ordered or reviewed: Medicine consult Mental Status Examination - Cognitive Function Orientation: Person, Place, Situation, Time Memory: Intact Attention: WNL Concentration: WNL Association: [facility] Fund of Knowledge: [facility] Decription of patient's judgement and insights: Fair I/J - Mood Mood: Depressed, Anxious - Affect Affect: Constricted, Depressed - Formal Thought Process Formal Thought Process: No Impairment Psychotic Thoughts and Behaviors: No current AH/VH/paranoia/delusions - Suicidal Ideation Suicidal Ideation: No - Homicidal Ideation Homicidal Ideation: No Goal/Treatment Plan - Goal/Treatment Plan Need for Continued Stay: Remain at risks for inpatient hospitalization, Severe depression anxiety, Discharge may exacerbated symptoms Progress Toward Problem(s) and Goals/Treatment Plan: Schizoaffective Disorder; Cocaine Use Disorder -Individual and group therapy provided -Continue Trazodone 100 mg PO HS and Risperdal 2 mg PO Q12 -Continue Zoloft 100 mg PO Daily -Medicine consult appreciated -Psychoeducation re: dangers of cocaine abuse -Disposition planning Estimated Date of D/C: 12/17/17
--- NOTE | 2017-12-16 11:30 | PCM.PYCHPN ---
Psychiatric Progress Note - Psychiatric Progress Note Patient seen today, length of contact: Patient evaluated, case discussed with team, chart reviewed Patient Chief Complaint: "I'm getting better." Problems Identified/Issues Discussed: Patient reports that his mood is improving. He denies AH/VH/paranoia/ delusions. He denies adverse effects to medications. We discussed possible discharge tomorrow if the patient continues to improve clinically. He denies current suicidal ideation/plan/intent. Medication Change: No Medical Record Reviewed: Yes Consults ordered or reviewed: Medicine consult Mental Status Examination - Cognitive Function Orientation: Person, Place, Situation, Time Memory: Intact Attention: WNL Concentration: WNL Association: WNL Fund of Knowledge: [facility] Decription of patient's judgement and insights: Fair I/J - Mood Mood: Depressed - Affect Affect: Broad - Formal Thought Process Formal Thought Process: No Impairment Psychotic Thoughts and Behaviors: No current AH/VH/paranoia/delusions - Suicidal Ideation Suicidal Ideation: No - Homicidal Ideation Homicidal Ideation: No Goal/Treatment Plan - Goal/Treatment Plan Need for Continued Stay: Remain at risks for inpatient hospitalization, Severe depression anxiety, Discharge may exacerbated symptoms Progress Toward Problem(s) and Goals/Treatment Plan: Schizoaffective Disorder; Cocaine Use Disorder -Individual and group therapy provided -Continue Trazodone 100 mg PO HS and Risperdal 2 mg PO Q12 -Continue Zoloft 100 mg PO Daily -Medicine consult appreciated -Psychoeducation re: dangers of cocaine abuse -Disposition planning Estimated Date of D/C: 12/17/17 - Smoking Cessation Smoking Cessation Initiated: No Reason for not providing: Not indicated
[2017-12-17 06:16] VITALS: BP 93/60; PULSE 77; RESP 18; TEMP 98.1
--- NOTE | 2017-12-17 08:26 | PCM.PYCHDC ---
Mental Status Examination - Mental Status Examination Orientation: Person, Place, Situation, Time Memory: Intact Mood: Neutral Affect: Broad Speech: Appropriate Attention: WNL Concentration: WNL Association: WNL Fund of Knowledge: WNL Formal Thought Process: No Impairment Description of patient's judgement and insight: Fair I/J Psychotic Thoughts and Behaviors: No current AH/VH/paranoia/delusions Suicidal Ideation: No Current Homicidal Ideation?: No Discharge Summary - Discharge Note Reason for Hospitalization: HPI: 47 yo male w/ h/o schizophrenia, presents w/ worsening depression and suicidal ideation to cut his wrists in the context of cocaine abuse. Patient reports that he last heard AH two days ago. No current AH/VH/paranoia/ delusions. He is able to contract for safety, but does report that he continues to have intermittent suicidal ideations w/o current plan/intent. + Depressed mood +anxiety +low motivation +hopelessness +sleep/appetite disturbances. No current signs/symptoms of westley. PPHx: Multiple past psychiatric admissions for schizoaffective disorder; currently time Zoloft 50 mg PO Daily, Risperdal 2 mg PO Q12, Trazodone 100 mg PO HS; patient was treated w/ Risperdal Consta in the past, but he states that he no longer takes the injection PMHx: HTN (on Lisinopril 2.5 mg PO Daily); patient reports that he was diagnosed with the flu two weeks ago, but he did not complete treatment w/ Tamiflu which was prescribed to him ALL: NKDA SHx: Denied drugs/ etoh/ cig to automobile and property underwriter, but Utox +Cocaine Consultations:: List each consultation separately and include: 1. Reason for request. 2. Findings. 3. Follow-up Consultations: Medicine consult Summary of Hospital Course include:: 1. Description of specific treatment plan utilized for patients during their course of treatmen. 2. Summarize the time- course for resolution of acute symptoms and/or regressed behaviors. 3. Describe issues identified and worked on during hospitalization. 4. Describe medication utilized. 5. Describe medical problems identified and treated. 6. Reassessment of suicide risk Summary of Hospital Course: Patient was admitted to the psychiatry unit. Individual and group therapy were provided. Psychoeducation provided on the dangers of cocaine abuse. Patient was stabilized on Zoloft, Risperdal and Trazodone. His mood has improved, he no longer reports psychotic symptoms and he is currently psychiatrically stable for discharge. - Diagnosis (1) Schizoaffective disorder Current Visit: Yes Status: Chronic Comment: pharamcotherapy - Final Diagnosis (DSM 5) Condition upon Discharge: STABLE DSM 5: Schizoaffective Disorder Disposition: HOME/ ROUTINE Follow-up Treatment Plan: Schizoaffective Disorder; Cocaine Use Disorder -Individual and group therapy provided -Continue Trazodone 100 mg PO HS and Risperdal 2 mg PO Q12 -Continue Zoloft 100 mg PO Daily -Medicine consult appreciated -Psychoeducation re: dangers of cocaine abuse -Disposition planning Prescriptions/Medication Reconciliation: hydroCHLOROthiazide [Microzide] 12.5 mg PO DAILY #30 cap risperiDONE [RisperDAL Tab] 2 mg PO Q12 #60 tab Sertraline [Zoloft] 100 mg PO DAILY #30 tab traZODone [Desyrel] 100 mg PO HS #30 tab - Smoking Cessation Smoking Cessation Medication prescribed: No Reason for not providing: Not indicated - Antipsychotic Medications Pt discharged on 2 or more routine antipsychotic medications: No
== END 2017-12-17 10:45 | disposition home or self-care (01) | DRG 430 ==
LOC: H.ER 21:14 → H.ERHOLD 12-13 02:05 → H.STEP 12-13 03:29
PROVIDERS: ADMIT Psychiatry & Neurology Psychiatry; ATTEND Psychiatry & Neurology Psychiatry
PROC: GZHZZZZ Group Psychotherapy (ICD-10-PCS; principal; 2017-12-13)
PROC: HZ56ZZZ Individual Psychotherapy for Substance Abuse Treatment, Psychoeducation (ICD-10-PCS; 2017-12-13)
PROC: 3E0234Z Introduction of Serum, Toxoid and Vaccine into Muscle, Percutaneous Approach (ICD-10-PCS; 2017-12-13)
DX: F25.9 Schizoaffective disorder, unspecified (principal); R45.851 Suicidal ideations; F14.10 Cocaine abuse, uncomplicated; I10 Essential (primary) hypertension; J45.909 Unspecified asthma, uncomplicated; Z23 Encounter for immunization; R05 Cough; F17.210 Nicotine dependence, cigarettes, uncomplicated

== ENCOUNTER 2018-01-06 20:49 | Inpatient (IN) | payer MEDICAID ==
[2018-01-06 20:49] VITALS: BMI 23.3
[2018-01-06 20:59] VITALS: O2SAT 98
--- NOTE | 2018-01-06 21:28 | ED PDOC ---
HPI: Psych/Substance Abuse Time Seen by Provider: 01/06/18 21:22 Chief Complaint (Nursing): Psychiatric Evaluation History Per: Patient Onset/Duration Of Symptoms: Unknown Current Symptoms Are (Timing): Still Present Suicide/Self Injury Attempted (Context): None Associated Symptoms: Anger Additional Complaint(s): States he wants to kill everyone at intermediate. States they are all idiots at intermediate. Does not exp[stepan why. Past Medical History Vital Signs: Last Vital Signs Temp 97.6 F 01/06/18 20:54 Pulse 105 H 01/06/18 20:54 Resp 18 01/06/18 20:54 BP 130/84 01/06/18 20:54 Pulse Ox 98 01/06/18 20:54 - Medical History PMH: Asthma, Bipolar Disorder, Depression, HTN, Schizophrenia Denies: Diabetes, Hepatitis, HIV, Chronic Kidney Disease, Seizures, Sexually Transmitted Disease - Family History Family History: States: Unknown Family Hx - Immunization History Hx Tetanus Toxoid Vaccination: No Hx Influenza Vaccination: No Hx Pneumococcal Vaccination: No - Home Medications Home Medications: Ambulatory Orders Medication Instructions Recorded Albuterol HFA [Ventolin HFA 90 1 puff INH Q6 12/13/17 mcg/actuation (8 g)] Sertraline [Zoloft] 100 mg PO DAILY #30 tab 12/14/17 hydroCHLOROthiazide [Microzide] 12.5 mg PO DAILY #30 cap 12/14/17 risperiDONE [RisperDAL Tab] 2 mg PO Q12 #60 tab 12/14/17 traZODone [Desyrel] 100 mg PO HS #30 tab 12/14/17 - Allergies Allergies/Adverse Reactions: Allergies Allergy/AdvReac Type Severity Reaction Status Date / Time No Known Allergies Allergy Verified 01/06/18 20:54 Review of Systems ROS Statement: Except As Marked, All Systems Reviewed And Found Negative Psych: Positive for: Other (Homicidal ideation) Physical Exam - Reviewed Nursing Documentation Reviewed: Yes Vital Signs Reviewed: Yes - Physical Exam Appears: Positive for: Non-toxic, No Acute Distress Head Exam: Positive for: ATRAUMATIC, NORMAL INSPECTION, NORMOCEPHALIC Skin: Positive for: Normal Color, Warm, DRY Eye Exam: Positive for: EOMI, Normal appearance, PERRL ENT: Positive for: Normal ENT Inspection Neck: Positive for: Normal, Painless ROM Cardiovascular/Chest: Positive for: Regular Rate, Rhythm Respiratory: Positive for: CNT, Normal Breath Sounds Gastrointestinal/Abdominal: Positive for: Normal Exam, Bowel Sounds, Soft Back: Positive for: Normal Inspection Extremity: Positive for: Normal ROM Neurologic/Psych: Positive for: Alert. Negative for: Motor/Sensory Deficits - ECG O2 Sat by Pulse Oximetry: 98 Medical Decision Making Medical Decision Making: Medically stable for psychiatric admission Disposition - Clinical Impression Clinical Impression: Schizoaffective disorder - Patient ED Disposition Is Patient to be Admitted: Yes - Disposition Disposition Time: 23:07 Condition: FAIR Forms: [employer] (Hungarian) - Pt Status Changed To: Hospital Disposition Of: Inpatient - Admit Certification Admit to Inpatient:: After my assessment, the patient will require hospitalization for at least two midnights. This is because of the severity of symptoms shown, intensity of services needed, and/or the medical risk in this patient being treated as an outpatient. - POA Present On Arrival: None
[2018-01-06 23:07] LABS: BASO # 0.1 K/uL (0.0-0.2); BASO % 0.8 % (0.0-2.0); EOS # 0.2 K/uL (0.0-0.7); EOS % 3.1 % (0.0-4.0); HEMOGLOBIN 12.6 g/dL (12.0-18.0); LYMPH # 2.5 K/uL (1.0-4.3); LYMPH % 42.4 % (20.0-40.0); MEAN CELL VOLUME 77.1 fl (80.0-94.0); MEAN CORPUSCULAR HEMOGLOBIN 24.9 pg (27.0-31.0); MEAN CORPUSCULAR HGB CONC 32.3 g/dL (33.0-37.0); MEAN PLATELET VOLUME 7.3 fl (7.2-11.7); MONO # 0.4 K/uL (0.0-0.8); MONO % 6.5 % (0.0-10.0); NEUT # 2.8 K/uL (1.8-7.0); NEUT % 47.2 % (50.0-75.0); NRBC % 0.1 % (0.0-0.0); RBC 5.07 Mil/uL (4.40-5.90); RED CELL DISTRIBUTION WIDTH 16.4 % (11.5-14.5)
[2018-01-06 23:18] LABS: ALB/GLOB RATIO 1.1 (1.0-2.1); ALBUMIN 4.2 g/dL (3.5-5.0); ALT/SGPT 25 U/L (21-72); AST/SGOT 21 U/L (17-59); BLOOD UREA NITROGEN 13 mg/dl (9-20); GFR AFRICAN-AMERICAN > 60; GFR NON-AFRICAN AMERICAN > 60
[2018-01-06 23:48] LABS: CALCIUM 9.5 mg/dL (8.4-10.2)
--- NOTE | 2018-01-07 03:43 | PCM.BM ---
<Francisco J Freeman - Last Filed: 01/07/18 03:41> Treatment Plan Problems - Problems identified on initial assessmt Command/ Auditory Hallucinations Date Initiated: 01/07/18 Time Initiated: 03:42 Assessment reference: NA Status: Active Treatment assets and liabiliti Patient Assests: adapts well, cooperative, resourceful, self-reliant, ADL independent, physically healthy, negotiates basic needs, good past tx response, cognitively intact Patient Liabilities: live alone, financial problems, poor support system, relationship conflicts - Milieu Protocol Maintain good personal hygiene: every shift Encourage regular showers, every shift Remind patient to perform daily oral care, every shift Assist patient to perform ADL's Maintain personal safety: daily Educate patient to report safety concerns to staff, daily Monitor environment for contraband/sharps Medication safety: Monitor for expected outcome, potential side effects: daily, Assess barriers to learning: daily, Assess readiness for medication education: daily <Patricia Roper - Last Filed: 01/07/18 09:31> - Diagnosis (1) Schizoaffective disorder Status: Chronic Interventions: Medication management, Individual and group therapy, Psychoeducation 01/07/18 09:31 (2) Alcohol abuse Status: Acute Interventions: Medication management, Individual and group therapy, Psychoeducation 01/07/18 09:32 (3) Cocaine abuse Status: Acute Interventions: Medication management, Individual and group therapy, Psychoeducation 01/07/18 09:32 <Felicitas Ingram - Last Filed: 01/09/18 15:44> Family Contact Family involvement: Famliy/SO not involved Family contact: Patient declines to allow family contact at present - Outside Agency [facility] Care involvment: Information-sharing Agency contact name: Rohan Kam Agency contact number: [phone] ext. [phone] - Goals for Treatment Patient goals for treatment: Pt to be encouraged to attend activity and clinical groups 3-5x per week to identify at least 2 contributing factors to depression and suicide attempt. Psycho-education to be provided to patient/ family regarding benefits of medications and treatment adherence. Pt to be encouraged to participate in group milieu to develop effective coping skills to reduce depression and free of suicide ideation. Coordinate discharge resource needs by providing referral for psychiatric treatment follow up in the community. Discharge/Continuing Care - Education Needs Education Needs: Patient Medication, Patient Diagnosis/Disease Process, Patient Coping Skills, Patient Anger Management skills, Patient Community resources, Patient Activities of Daily Living, Patient Personal Hygiene/Grooming, Patient Aftercare Safety Plan - Discharge Discharge Criteria: Tolerates medication w/o severe side effects, Free of Homicidal thoughts, Free of agitation, Normal sleep pattern, Ability to care for self, Reduction of target symptoms Discharge to:: Long-Term - Additional Comments 01/09/18 15:43 Pt seen and discussed in team meeting. Reason for hospitalization reviewed. Pt' s medical and social issues reviewed. Pt's medications reviewed. tx plan reviewed. discharge planning and after care reviewed and discussed. Sw to follow case. - Treatment Team Participation Discussed with Family/SO: No Was Patient/Family/SO present at Treatment Team Meeting: Yes
[2018-01-07] MEDS ORDERED: DiphenhydrAMINE 50 mg/ml Inj IM PRN (06:04)
[2018-01-07] MEDS ORDERED: Magnesium Hydroxide Susp 30 ml UD PO PRN (06:04)
[2018-01-07] MEDS ORDERED: Alum-Mag Hydrox-Simethicone Susp (30 mL) PO PRN (06:04)
[2018-01-07 09:08] LABS: T4 10.5 ug/dl (5.5-11.0)
--- NOTE | 2018-01-07 09:43 | RAD ---
CHEST RADIOGRAPH Single frontal semi-erect chest radiograph has been submitted for evaluation of cough with comparison a prior chest dated 12/12/2017. No interval acute infiltrate pleural effusion or pneumothorax is identified. The patient slightly rotated toward the right CT of the mediastinal anatomy. No interval cardiomegaly or pulmonary vascular derangement identified. IMPRESSION: No interval acute cardiopulmonary disease appreciable.
--- NOTE | 2018-01-07 10:03 | PCM.PSYCH ---
Initial Psychiatric Evaluation - Initial Psychiatric Evaluation Type of Admission: Voluntary Legal Status: Capacity Chief Complaint (in patient's own words): "I'm depressed." Patient's Reaction to Hospitalization: HPI: 47 yo male w/ h/o schizoaffective disorder, presents w/ worsening depression and ideation to harm others (denies current ideation/plan/intent) in the context of alcohol abuse. No current AH/VH/paranoia/delusions. He is able to contract for safety. +Depressed mood +anxiety He is agreeable to inpatient hospitalization, but is requesting to be discharged on Sunday. PPHx: Multiple past psychiatric admissions for schizoaffective disorder PMHx: HTN ALL: NKDA SHx: +Cocaine abuse, +ETOH abuse; homeless, unemployed Current Medications: Active Medications Generic Name Dose Route Start Last Admin Trade Name Freq PRN Reason Stop Dose Admin Acetaminophen 650 mg 01/07/18 06:04 Tylenol 325mg Tab PO Q4 PRN for pain (4-7) Al Hydrox/Mg Hydrox/Simethicone 30 ml 01/07/18 06:04 Maalox Plus 30 Ml PO Q4 PRN Dyspepsia Albuterol 2 puff 01/07/18 10:00 Ventolin Hfa 90 Mcg/Actuation (8 G) INH Q6 CLAUDIA Diphenhydramine HCl 50 mg 01/07/18 06:04 Benadryl IM Q6 PRN Extrapyramidal S/S Unable PO Diphenhydramine HCl 50 mg 01/07/18 06:04 Benadryl PO Q6 PRN Extrapyramidal Symptoms Diphenhydramine HCl 50 mg 01/07/18 06:04 Benadryl PO HS PRN Sleep Haloperidol 5 mg 01/07/18 06:04 Haldol PO Q4 PRN Agitation Haloperidol Lactate 5 mg 01/07/18 06:04 Haldol IM Q4 PRN Agitation, Unable to Take PO Hydrochlorothiazide 12.5 mg 01/07/18 09:30 Microzide PO DAILY CLAUDIA Lorazepam 2 mg 01/07/18 06:04 Ativan IM Q4 PRN Anxiety/Agitation,Unable PO Lorazepam 2 mg 01/07/18 06:04 Ativan PO Q4 PRN Anxiety/Agitation Lorazepam 1 mg 01/07/18 13:00 Ativan PO TID CLAUDIA Magnesium Hydroxide 30 ml 01/07/18 06:04 Milk Of Magnesia PO HS PRN Constipation Risperidone 2 mg 01/07/18 09:30 Risperdal Tab PO Q12 CLAUDIA Sertraline HCl 100 mg 01/07/18 09:30 Zoloft PO DAILY CLAUDIA Trazodone HCl 100 mg 01/07/18 22:00 Desyrel PO HS CLAUDIA Past Psychiatric History - Past Psychiatric History Previous Treatment History: Inpatient Pertinent Medical Hx (Current Medical&Sleep Prob, Allergies): Allergies Allergy/AdvReac Type Severity Reaction Status Date / Time No Known Allergies Allergy Verified 01/06/18 20:54 Albuterol HFA [Ventolin HFA 90 mcg/actuation (8 g)] 1 puff INH Q6 12/13/17 Sertraline [Zoloft] 100 mg PO DAILY #30 tab 12/14/17 hydroCHLOROthiazide [Microzide] 12.5 mg PO DAILY #30 cap 12/14/17 risperiDONE [RisperDAL Tab] 2 mg PO Q12 #60 tab 12/14/17 traZODone [Desyrel] 100 mg PO HS #30 tab 12/14/17 Review of Systems - Psychiatric Psychiatric: Abnormal Sleep Pattern, Anxiety, Depression, Difficulty Concentrating, Mood Swings, Suicidal Ideation Mental Status Examination - Personal Presentation Personal Presentation: Looks stated age - Affect Affect: Constricted, Depressed - Motor Activity Motor Activity: Calm - Reliability in Providing Information Reliability in Providing Information: Good - Speech Speech: Organized - Mood Mood: Depressed - Formal Thought Process Formal Thought Process: No Impairment - Hallucinations/Delusions Additional comments: NO AH/VH/paranoia/delusions - Obsessions/Compulsions Obsessions: No Compulsions: No - Cognitive Functions Orientation: Person, Place, Situation, Time Attention/Concentration: Attentive Estimate of Intelligence: Average Judgement: Intact, as evidence by: Insight regarding need for hospitalization Memory: Recent intact, as evidence by: Ability to recall events of the day, Remote intact, as evidenced by: Abilit to recall sig. life events, Remote intact , as evidenced by: Ability to recall historical events - Risk Risk: Diminished functioning - Strength & Assets Inventory Strength & Assets Inventory: Cooperative - Limitations Limitations: Other (Homelessness, Poverty, Poor social support) DSM 5 DX - DSM 5 DSM 5 Diagnosis: Schizoaffective Disorder; Cocaine Use Disorder; Alcohol Use Disorder - Recommended/Plan of Treatment Treatment Recommendations and Plan of Treatment: Schizoaffective Disorder; Cocaine Use Disorder; Alcohol Use Disorder -Admit to psychiatry unit -Individual and group therapy provided -Restart Trazodone 100 mg PO HS and Risperdal 2 mg PO Q12 -Restart Zoloft 100 mg PO Daily -Medicine consult -Psychoeducation re: dangers of cocaine and alcohol abuse -Disposition planning -No 1:1 indicated at this time -Ativan to prevent ETOH w/drawal symptoms; will taper gradually daily Projected ELOS: 5 days Discharge Plan and Discharge Criteria: Discharge when patient is psychiatrically stable - Smoking Cessation Smoking Cessation Initiated: No Reason for not providing: Not indicated
[2018-01-07] MEDS: Albuterol HFA 90 mcg/actuation (8 g) INH SCH ×3 (13:28→21:16)
--- NOTE | 2018-01-07 14:04 | CP.PCM.CON ---
History of Present Illness - History of Present Illness History of Present Illness: Bradly is a pleasant 47 yo M with pmhx of HTN, schizoaffective d/o, depression and anxiety presented to [facility] for increased homocidal ideations. He reports that he was increasingly agitated from being in [facility] where there was a lot of noise. He reports that the library, the place he seeks for peace, was closed for the weekend. He was self aware of his potential actions and self admitted to the psychiatric floor. Denies current VH/AH, depression, anxiety or SI/HI; however, he states that he occasionally has VH where he would see his family members. He also reports of generalized tension headaches, alleviated with rest. Denies: blurred vision, or focal deficits. Denies CP/SOB/N/V PCP: [facility] PMhx: HTN, schizoaffective d/o, depression and anxiety FamHx: DM, HTN, renal failure, CA Surg: none Soc: ETOH (1 24 oz beer once a week or on occasion), homeless residing at [facility], unemployed; Denied smoking or illicit drug use Rx: lisinopril, trazodone, risperdal, zoloft NKDA Review of Systems - Constitutional Constitutional: Headache - EENT Eyes: absent: Blurred Vision - Cardiovascular Cardiovascular: absent: Chest Pain, Leg Edema, Paroxysmal Nocturnal Dyspnea - Respiratory Respiratory: Cough. absent: Dyspnea, Dyspnea on Exertion - Gastrointestinal Gastrointestinal: absent: Abdominal Pain, Nausea, Vomiting - Musculoskeletal Musculoskeletal: absent: Abnormal Gait - Psychiatric Psychiatric: As Per HPI. absent: Anxiety, Depression, Homicidal Ideation, Suicidal Ideation, Visual Hallucinations Past Patient History - Infectious Disease Hx of Infectious Diseases: None - Tetanus Immunizations Tetanus Immunization: Unknown - Past Medical History & Family History Past Medical History?: Yes - Past Social History Smoking Status: Heavy Smoker > 10 Cigarettes Daily Occupation: unemployed Alcohol: Occasional Drugs: Denies Home Situation {Lives}: Homeless - CARDIAC Hx Hypertension: Yes - PULMONARY Hx Asthma: Yes - NEUROLOGICAL Hx Seizures: No - HEENT Hx HEENT Problems: No - RENAL Hx Chronic Kidney Disease: No - ENDOCRINE/METABOLIC Hx Endocrine Disorders: No - HEMATOLOGICAL/ONCOLOGICAL Hx Human Immunodeficiency Virus (HIV): No - INTEGUMENTARY Hx Dermatological Problems: No - MUSCULOSKELETAL/RHEUMATOLOGICAL Hx Musculoskeletal Disorders: No - GASTROINTESTINAL Hx Gastrointestinal Disorders: No - GENITOURINARY/GYNECOLOGICAL Hx Sexually Transmitted Disorders: No - PSYCHIATRIC Hx Anxiety: Yes Hx Bipolar Disorder: Yes Hx Depression: Yes Hx Hallucinations: Yes (Visual) Hx Schizophrenia: Yes Hx Substance Use: Yes - SURGICAL HISTORY Hx Surgeries: No - ANESTHESIA Hx Anesthesia: No Meds Allergies/Adverse Reactions: Allergies Allergy/AdvReac Type Severity Reaction Status Date / Time No Known Allergies Allergy Verified 01/06/18 20:54 - Medications Medications: Current Medications Acetaminophen (Tylenol 325mg Tab) 650 mg PO Q4 PRN PRN Reason: for pain (4-7) Last Admin: 01/07/18 13:31 Dose: 650 mg Al Hydrox/Mg Hydrox/Simethicone (Maalox Plus 30 Ml) 30 ml PO Q4 PRN PRN Reason: Dyspepsia Albuterol (Ventolin Hfa 90 Mcg/Actuation (8 G)) 2 puff INH Q6 [facility] Last Admin: 01/07/18 13:28 Dose: 2 puff Diphenhydramine HCl (Benadryl) 50 mg IM Q6 PRN PRN Reason: Extrapyramidal S/S Unable PO Diphenhydramine HCl (Benadryl) 50 mg PO Q6 PRN PRN Reason: Extrapyramidal Symptoms Diphenhydramine HCl (Benadryl) 50 mg PO HS PRN PRN Reason: Sleep Haloperidol (Haldol) 5 mg PO Q4 PRN PRN Reason: Agitation Haloperidol Lactate (Haldol) 5 mg IM Q4 PRN PRN Reason: Agitation, Unable to Take PO Hydrochlorothiazide (Microzide) 12.5 mg PO DAILY [facility] Last Admin: 01/07/18 13:27 Dose: 12.5 mg Lorazepam (Ativan) 2 mg IM Q4 PRN PRN Reason: Anxiety/Agitation,Unable PO Lorazepam (Ativan) 2 mg PO Q4 PRN PRN Reason: Anxiety/Agitation Lorazepam (Ativan) 0.5 mg PO TID [facility] Last Admin: 01/07/18 13:27 Dose: 0.5 mg Magnesium Hydroxide (Milk Of Magnesia) 30 ml PO HS PRN PRN Reason: Constipation Risperidone (Risperdal Tab) 2 mg PO Q12 [facility] Last Admin: 01/07/18 13:28 Dose: 2 mg Sertraline HCl (Zoloft) 100 mg PO DAILY [facility] Last Admin: 01/07/18 13:29 Dose: 100 mg Trazodone HCl (Desyrel) 100 mg PO [facility] Physical Exam - Head Exam Head Exam: ATRAUMATIC, NORMAL INSPECTION - Eye Exam Eye Exam: EOMI - Neck Exam Neck exam: Positive for: Full Rom - Respiratory Exam Respiratory Exam: absent: Wheezes Additional comments: Phlegmatous cough. - Cardiovascular Exam Cardiovascular Exam: REGULAR RHYTHM, +S1, +S2. absent: Systolic Murmur - GI/Abdominal Exam GI & Abdominal Exam: Normal Bowel Sounds, Soft. absent: Tenderness - Extremities Exam Extremities exam: Positive for: full ROM - Neurological Exam Neurological exam: Alert, CN II-XII Intact, Normal Gait, Oriented x3 - Psychiatric Exam Psychiatric exam: Normal Affect, Normal Mood Results - Vital Signs Recent Vital Signs: Last Vital Signs Temp 97.9 F 01/07/18 06:19 Pulse 92 H 01/07/18 06:19 Resp 18 01/07/18 06:19 BP 126/73 01/07/18 06:19 Pulse Ox 98 01/06/18 23:07 - Labs Result Diagrams: 01/06/18 22:58 01/06/18 22:58 Labs: Laboratory Results - last 24 hr 01/06/18 01/06/18 01/07/18 22:58 22:58 08:00 WBC 6.0 RBC 5.07 Hgb 12.6 Hct 39.1 MCV 77.1 L MCH 24.9 L MCHC 32.3 L RDW 16.4 H Plt Count 284 MPV 7.3 Neut % (Auto) 47.2 L Lymph % (Auto) 42.4 H [place] % (Auto) 6.5 Eos % (Auto) 3.1 Baso % (Auto) 0.8 Neut # (Auto) 2.8 Lymph # (Auto) 2.5 [place] # (Auto) 0.4 Eos # (Auto) 0.2 Baso # (Auto) 0.1 Sodium 146 Potassium 4.0 Chloride 108 H Carbon Dioxide 22 Anion Gap 20 BUN 13 Creatinine 1.1 Est GFR ( Amer) > 60 Est GFR (Non-Af Amer) > 60 Random Glucose 107 Hemoglobin A1c Calcium 9.5 Total Bilirubin 0.4 AST 21 ALT 25 Alkaline Phosphatase 73 Total Protein 8.1 Albumin 4.2 Globulin 3.9 Albumin/Globulin Ratio 1.1 Triglycerides 114 D Cholesterol 195 LDL Cholesterol Direct 108 HDL Cholesterol 55 Thyroxine (T4) 10.5 TSH 3rd Generation 0.37 L Alcohol, Quantitative 218 H 01/07/18 08:00 WBC RBC Hgb Hct MCV MCH MCHC RDW Plt Count MPV Neut % (Auto) Lymph % (Auto) [place] % (Auto) Eos % (Auto) Baso % (Auto) Neut # (Auto) Lymph # (Auto) [place] # (Auto) Eos # (Auto) Baso # (Auto) Sodium Potassium Chloride Carbon Dioxide Anion Gap BUN Creatinine Est GFR ( Amer) Est GFR (Non-Af Amer) Random Glucose Hemoglobin A1c 5.9 Calcium Total Bilirubin AST ALT Alkaline Phosphatase Total Protein Albumin Globulin Albumin/Globulin Ratio Triglycerides Cholesterol LDL Cholesterol Direct HDL Cholesterol Thyroxine (T4) TSH 3rd Generation Alcohol, Quantitative Assessment & Plan - Assessment and Plan (Free Text) Assessment: Bradly is a 47 yo M with pmhx of htn, schizoaffective d/o, depression and anxiety presents to [facility] due to homicidal ideation. Plan: 1. HTN - Controlled - Lisinopril 10 mg qD - Continue monitoring vitals 2. Schizoaffective d/o: - Currently managed by psychiatry
[2018-01-07 21:58] LABS: BARBITURATES, UR NEGATIVE (NEGATIVE); BENZODIAZEPINES, UR NEGATIVE (NEGATIVE); OPIATES, UR NEGATIVE (NEGATIVE); PHENCYCLIDINE, UR NEGATIVE (NEGATIVE)
[2018-01-08] MEDS: Albuterol HFA 90 mcg/actuation (8 g) INH SCH ×4 (04:17→21:08)
--- NOTE | 2018-01-08 08:39 | PCM.PYCHPN ---
Psychiatric Progress Note - Psychiatric Progress Note Patient seen today, length of contact: Patient evaluated, case discussed with team, chart reviewed Patient Chief Complaint: "I'm feeling better." Problems Identified/Issues Discussed: Patient reports that his mood is improving. He is requesting to be discharged tomorrow. He denies acute AH/VH/SI/HI. He is more goal oriented. Psychoeducation provided re: importance of compliance with treatment, medications and dangers of substance abuse. No signs/symptoms of ETOH withdrawal. Medication Change: Yes (Taper Ativan) Medical Record Reviewed: Yes Consults ordered or reviewed: Medicine consult Mental Status Examination - Cognitive Function Orientation: Person, Place, Situation, Time Memory: Intact Attention: WNL Concentration: WNL Association: WNL Fund of Knowledge: WNL - Mood Mood: Neutral - Affect Affect: Constricted - Formal Thought Process Formal Thought Process: No Impairment Psychotic Thoughts and Behaviors: Denies AH/VH/paranoia/delusions - Suicidal Ideation Suicidal Ideation: No - Homicidal Ideation Homicidal Ideation: No Goal/Treatment Plan - Goal/Treatment Plan Need for Continued Stay: Discharge may exacerbated symptoms Progress Toward Problem(s) and Goals/Treatment Plan: Schizoaffective Disorder; Cocaine Use Disorder; Alcohol Use Disorder -Individual and group therapy provided -Continue Trazodone 100 mg PO HS, Risperdal 2 mg PO Q12, Zoloft 100 mg PO Daily -Medicine consult -Psychoeducation re: dangers of cocaine and alcohol abuse -Disposition planning- patient requesting to be discharged tomorrow -No 1:1 indicated at this time -Taper Ativan, no current signs/symptoms of ETOH withdrawal Estimated Date of D/C: 01/09/18
--- NOTE | 2018-01-08 11:51 | CARD ---
APPROVED REPORT EKG Measurement Heart [id number] <Conclusion> Normal sinus rhythm Voltage criteria for left ventricular hypertrophy Early repolarization Abnormal ECG
[2018-01-08 15:27] VITALS: RESP 19
[2018-01-09] MEDS: Albuterol HFA 90 mcg/actuation (8 g) INH SCH (04:05)
[2018-01-09 05:45] VITALS: TEMP 97.5
[2018-01-09 08:29] VITALS: BP 120/62; PULSE 94
--- NOTE | 2018-01-09 08:41 | PCM.PYCHDC ---
Mental Status Examination - Mental Status Examination Orientation: Person, Place, Situation, Time Memory: Intact Mood: Neutral Affect: Broad Speech: Appropriate Attention: WNL Concentration: WNL Association: WNL Fund of Knowledge: WNL Formal Thought Process: No Impairment Description of patient's judgement and insight: Fair I/J Psychotic Thoughts and Behaviors: Denies AH/VH/paranoia/delusions Suicidal Ideation: No Current Homicidal Ideation?: No Discharge Summary - Discharge Note Reason for Hospitalization: HPI: 47 yo male w/ h/o schizoaffective disorder, presents w/ worsening depression and ideation to harm others (denies current ideation/plan/intent) in the context of alcohol abuse. No current AH/VH/paranoia/delusions. He is able to contract for safety. +Depressed mood +anxiety He is agreeable to inpatient hospitalization, but is requesting to be discharged on Sunday. PPHx: Multiple past psychiatric admissions for schizoaffective disorder PMHx: HTN ALL: NKDA SHx: +Cocaine abuse, +ETOH abuse; homeless, unemployed Consultations:: List each consultation separately and include: 1. Reason for request. 2. Findings. 3. Follow-up Consultations: Medicine consult Summary of Hospital Course include:: 1. Description of specific treatment plan utilized for patients during their course of treatmen. 2. Summarize the time- course for resolution of acute symptoms and/or regressed behaviors. 3. Describe issues identified and worked on during hospitalization. 4. Describe medication utilized. 5. Describe medical problems identified and treated. 6. Reassessment of suicide risk Summary of Hospital Course: Patient was admitted to the psychiatry unit. Individual and group therapy were provided. Psychoeducation was provided on the dangers of alcohol and cocaine abuse. No current signs/symptoms of ETOH withdrawal. Patient was continued on Risperdal, Zoloft, Trazodone. Patient denies current depression/anxiety/AH/VH/ SI/HI and is psychiatrically stable for discharged w/ outpatient follow-up. - Diagnosis (1) Schizoaffective disorder Current Visit: Yes Status: Chronic Comment: pharamcotherapy (2) Alcohol abuse Current Visit: No Status: Chronic (3) Cocaine abuse Current Visit: No Status: Chronic Comment: motivational therapy - Final Diagnosis (DSM 5) Condition upon Discharge: STABLE DSM 5: Schizoaffective Disorder Disposition: HOME/ ROUTINE Follow-up Treatment Plan: Schizoaffective Disorder; Cocaine Use Disorder; Alcohol Use Disorder -Individual and group therapy provided -Continue Trazodone 100 mg PO HS, Risperdal 2 mg PO Q12, Zoloft 100 mg PO Daily -Medicine consult -Psychoeducation re: dangers of cocaine and alcohol abuse -No current signs/symptoms of ETOH withdrawal -Patient is psychiatrically stable for discharge with outpatient follow-up Prescriptions/Medication Reconciliation: Albuterol HFA [Ventolin HFA 90 mcg/actuation (8 g)] 2 puff INH Q6 #1 inhaler Lisinopril [Zestril] 10 mg PO DAILY #30 tab risperiDONE [RisperDAL Tab] 2 mg PO Q12 #60 tab Sertraline [Zoloft] 100 mg PO DAILY #30 tab traZODone [Desyrel] 100 mg PO HS #30 tab - Smoking Cessation Smoking Cessation Medication prescribed: No Reason for not providing: Not indicated - Antipsychotic Medications Pt discharged on 2 or more routine antipsychotic medications: No
== END 2018-01-09 13:50 | disposition home or self-care (01) | DRG 430 ==
LOC: H.ER 20:49 → H.ERHOLD 23:05 → H.STEP 01-07 02:57
PROVIDERS: ADMIT Psychiatry & Neurology Psychiatry; ATTEND Psychiatry & Neurology Psychiatry
PROC: GZ3ZZZZ Medication Management (ICD-10-PCS; principal; 2018-01-07)
DX: F25.9 Schizoaffective disorder, unspecified (principal); F14.10 Cocaine abuse, uncomplicated; F10.10 Alcohol abuse, uncomplicated; I10 Essential (primary) hypertension; F41.9 Anxiety disorder, unspecified; G44.209 Tension-type headache, unspecified, not intractable; R45.850 Homicidal ideations; J45.909 Unspecified asthma, uncomplicated; Z59.0 Homelessness

== ENCOUNTER 2018-08-25 22:59 | Inpatient (IN) | payer MEDICAID ==
[2018-08-25 23:01] VITALS: BMI 24.2
--- NOTE | 2018-08-26 00:10 | ED PDOC ---
HPI: Psych/Substance Abuse Time Seen by Provider: 08/25/18 23:57 Chief Complaint (Nursing): Psychiatric Evaluation Additional Complaint(s): Pt seen and examined at bedside with attending. 47M known psych history p/w suicidality after spending the evening with a woman and spending "$100 on alcohol and $100 on crack cocaine" and "after the money and the drugs were gone "she left". Patient says he tried to jump in front of the light rail but "it was too fast". He was brought in by police and then reports getting angry at the way he was treated and states "hey revenge is the way to go". He denies SOB, dizziness, chest pain/palpitations, diarrhea, but says he is a little nauseous. Past Medical History Vital Signs: Last Vital Signs Temp 36.8 C 08/25/18 23:12 Pulse 131 H 08/25/18 23:12 Resp 16 08/25/18 23:12 BP 157/101 H 08/25/18 23:12 Pulse Ox 98 08/25/18 23:12 - Medical History PMH: Anxiety, Asthma, Bipolar Disorder, Depression, HTN, Schizophrenia Denies: Diabetes, Hepatitis, HIV, Chronic Kidney Disease, Seizures, Sexually Transmitted Disease - Family History Family History: States: Unknown Family Hx - Immunization History Hx Tetanus Toxoid Vaccination: No Hx Influenza Vaccination: No Hx Pneumococcal Vaccination: No - Home Medications Home Medications: Ambulatory Orders Medication Instructions Recorded Albuterol HFA [Ventolin HFA 90 2 puff INH Q6 #1 inhaler 01/08/18 mcg/actuation (8 g)] Lisinopril [Zestril] 10 mg PO DAILY #30 tab 01/08/18 Sertraline [Zoloft] 75 mg PO DAILY 30 Days #90 tab 07/15/18 risperiDONE [RisperDAL Tab] 4 mg PO HS 30 Days #60 tab 07/15/18 traZODone [Desyrel] 100 mg PO HS 30 Days #30 tab 07/15/18 - Allergies Allergies/Adverse Reactions: Allergies Allergy/AdvReac Type Severity Reaction Status Date / Time No Known Allergies Allergy Verified 01/06/18 20:54 Review of Systems ROS Statement: Except As Marked, All Systems Reviewed And Found Negative Cardiovascular: Negative for: Chest Pain, Palpitations Respiratory: Negative for: Shortness of Breath Psych: Positive for: Suicidal ideation Physical Exam - Reviewed Vital Signs Reviewed: Yes - Physical Exam Appears: Positive for: Well, Non-toxic, No Acute Distress Head Exam: Positive for: ATRAUMATIC Skin: Positive for: Normal Color, Warm, Dry Neck: Positive for: Supple Cardiovascular/Chest: Positive for: Tachycardia Respiratory: Positive for: Normal Breath Sounds. Negative for: Crackles, Rhonchi, Wheezing Gastrointestinal/Abdominal: Positive for: Normal Exam, Bowel Sounds, Soft. Negative for: Tenderness Extremity: Positive for: Normal ROM. Negative for: Calf Tenderness Neurologic/Psych: Positive for: Alert, Oriented - Laboratory Results Result Diagrams: 08/26/18 00:40 08/26/18 00:40 - ECG O2 Sat by Pulse Oximetry: 98 Medical Decision Making Medical Decision Making: Suicidality s/p drug and alcohol use. - CBC, CMP, EtOH, UDS, Mg - EKG - Crisis Eval 0125 Alcohol- 62 Cocaine-positive EKG w/o acute changes when compared to 02/2018 Crisis Eval states patient remains suicidal and will admit Disposition - Clinical Impression Clinical Impression: Schizoaffective disorder, Suicidal ideation, Substance abuse - Patient ED Disposition Is Patient to be Admitted: Yes Discussed With : Shira Gonzalez Badr Doctor Will See Patient In The: Hospital Counseled Patient/Family Regarding: Diagnosis - Disposition Disposition Time: 01:27 Condition: STABLE Forms: [employer] (Sinhala) - Pt Status Changed To: Hospital Disposition Of: Inpatient - Admit Certification Admit to Inpatient:: After my assessment, the patient will require hospitalization for at least two midnights. This is because of the severity of symptoms shown, intensity of services needed, and/or the medical risk in this patient being treated as an outpatient.
[2018-08-26 00:50] LABS: HEMOGLOBIN 12.9 g/dL (12.0-18.0); MEAN CELL VOLUME 79.4 fl (80.0-94.0); MEAN CORPUSCULAR HGB CONC 32.8 g/dL (33.0-37.0); RBC 4.96 Mil/uL (4.40-5.90); RED CELL DISTRIBUTION WIDTH 13.6 % (11.5-14.5)
[2018-08-26 00:51] LABS: ALB/GLOB RATIO 1.5 (1.0-2.1); ALBUMIN 4.7 g/dL (3.5-5.0); ALT/SGPT 30 U/L (21-72); AST/SGOT 31 U/L (17-59); BLOOD UREA NITROGEN 12 mg/dl (9-20); CALCIUM 9.6 mg/dL (8.4-10.2); GFR NON-AFRICAN AMERICAN > 60
[2018-08-26 01:09] LABS: BARBITURATES, UR NEGATIVE (NEGATIVE); BENZODIAZEPINES, UR NEGATIVE (NEGATIVE); OPIATES, UR NEGATIVE (NEGATIVE); PHENCYCLIDINE, UR NEGATIVE (NEGATIVE)
[2018-08-26 01:27] VITALS: O2SAT 98
[2018-08-26] MEDS ORDERED: DiphenhydrAMINE 50 mg/ml Inj IM PRN (02:42)
[2018-08-26] MEDS ORDERED: Alum-Mag Hydrox-Simethicone Susp (30 mL) PO PRN (02:42)
[2018-08-26] MEDS ORDERED: Magnesium Hydroxide Susp 30 ml UD PO PRN (02:42)
--- NOTE | 2018-08-26 03:00 | PCM.BM ---
<Francisco J Freeman - Last Filed: 08/26/18 02:58> Treatment Plan Problems - Problems identified on initial assessmt Self Harm Date Initiated: 08/26/18 Time Initiated: 02:58 Assessment reference: NA Status: Active Altered Thought Process Date Initiated: 08/26/18 Time Initiated: 02:58 Assessment reference: NA Status: Active Hopelessness/Helplessness Date Initiated: 08/26/18 Time Initiated: 02:59 Assessment reference: NA Status: Active Feelings of Worthlessness Date Initiated: 08/26/18 Time Initiated: 02:59 Assessment reference: NA Status: Active Treatment assets and liabiliti Patient Assests: adapts well, cooperative, resourceful, self-reliant, ADL independent, physically healthy, negotiates basic needs, cognitively intact Patient Liabilities: financial problems, substance abuse, medical problems - Milieu Protocol Maintain good personal hygiene: every shift Encourage regular showers, every shift Remind patient to perform daily oral care, every shift Assist patient to p erform ADL's Maintain personal safety: daily Educate patient to report safety concerns to staff, daily Monitor environment for contraband/sharps Medication safety: Monitor for expected outcome, potential side effects: daily, Assess barriers to learning: daily, Assess readiness for medication education: daily <KeeganVerena - Last Filed: 08/26/18 16:08> Treatment assets and liabiliti Patient Assests: adapts well, cooperative, insightful, motivated, resourceful, self-reliant, ADL independent, physically healthy, negotiates basic needs, cognitively intact Patient Liabilities: live alone (Pt. currently homeless but working with [employer] to acquire stable housing.) Family Contact Family involvement: Famliy/SO not involved Family contact: Patient declines to allow family contact at present - Outside Agency Agency 1 Care involvment: Following patient during stay, Information-sharing, Other Agency contact name: [facility] Agency contact number: [phone] - Goals for Treatment Patient goals for treatment: Patient to continue stabilization on 3NP through medication management and group/supportive therapy to address sxs of depression, decrease AH and eliminate SI. Patient to be encouraged to attend groups regularly to promote self-awareness, sobriety, and improve insight, compliance, coping skills and self-esteem. Patient to be provided with referral for appropriate level of aftercare to reduce risk of future hospitalizations and ensure safety in the community. Pt. identified tx goal to explore healthy ways to celebrate successes/have fun to minimize triggers and maintain sobriety in the community. Discharge/Continuing Care - Education Needs Education Needs: Patient Medication, Patient Diagnosis/Disease Process, Patient Coping Skills, Patient Community resources, Patient Aftercare Safety Plan - Discharge Discharge Criteria: Tolerates medication w/o severe side effects, Free of Suicidal thoughts, Normal sleep pattern, Ability to care for self, No longer exhibiting s/s of withdrawal Discharge to:: Senior Care (Pt. currently staying with [facility]), Other ([facility], Outpatient Substance Abuse Services ) - Treatment Team Participation Discussed with Family/SO: No Was Patient/Family/SO present at Treatment Team Meeting: Yes <Shira Balbuena - Last Filed: 08/27/18 13:51> - Diagnosis (1) Cocaine abuse Status: Acute Interventions: motivational therapy 08/27/18 13:51
[2018-08-26 09:19] LABS: T4 10.6 ug/dl (5.5-11.0)
--- NOTE | 2018-08-26 12:11 | CARD ---
APPROVED REPORT Date of service: 08/26/2018 EKG Measurement Heart [id number] <Conclusion> Normal sinus rhythm Voltage criteria for left ventricular hypertrophy Abnormal ECG
--- NOTE | 2018-08-26 14:44 | PCM.PSYCH ---
Initial Psychiatric Evaluation - Initial Psychiatric Evaluation Type of Admission: Voluntary Legal Status: Capacity Chief Complaint (in patient's own words): I get well and I start using so I get depressed History of Present Illness and Precipitating Events: pt is 47ys old male with previous psychiatric diagnosis of schizophrenia, non compliant with medications or follow up, became increasingly depressed for stress at work and financial stress,relapsed on cocaine started experiencing command auditory hallucinations, telling him to hurt himself . came to er seeking help, on unit pt reported depressed mood, experiencing auditory hallucinations putting him down feeling hopeless and helpless with passive suicidal ideation, feeling unable to cope with his illness Current Medications: Active Medications Generic Name Dose Route Start Last Admin Trade Name Freq PRN Reason Stop Dose Admin Acetaminophen 650 mg 08/26/18 02:42 Tylenol 325mg Tab PO Q4 PRN Pain, moderate (4-7) Al Hydrox/Mg Hydrox/Simethicone 30 ml 08/26/18 02:42 Maalox Plus 30 Ml PO Q4 PRN Dyspepsia Diphenhydramine HCl 50 mg 08/26/18 02:42 Benadryl IM Q6 PRN Extrapyramidal S/S Unable PO Diphenhydramine HCl 50 mg 08/26/18 02:42 Benadryl PO Q6 PRN Extrapyramidal Symptoms Diphenhydramine HCl 50 mg 08/26/18 02:48 Benadryl PO HS PRN Sleep Haloperidol 5 mg 08/26/18 02:42 Haldol PO Q4 PRN Agitation Haloperidol Lactate 5 mg 08/26/18 02:42 Haldol IM Q4 PRN Agitation, Unable to Take PO Lorazepam 1 mg 08/26/18 02:42 Ativan PO Q8 PRN Anxiety/Agitation Magnesium Hydroxide 30 ml 08/26/18 02:42 Milk Of Magnesia PO HS PRN Constipation Risperidone 2 mg 08/26/18 22:00 Risperdal Tab PO HS CLAUDIA Sertraline HCl 50 mg 08/27/18 09:00 Zoloft PO DAILY CLAUDIA Trazodone HCl 50 mg 08/26/18 22:00 Desyrel PO HS CLAUDIA Past Psychiatric History - Past Psychiatric History Explanation of prior treatment: multiple hospiatalizaions, hx of non compliance History of ETOH/Drug Use: cocaine Pertinent Medical Hx (Current Medical&Sleep Prob, Allergies): Allergies Allergy/AdvReac Type Severity Reaction Status Date / Time No Known Allergies Allergy Verified 08/26/18 03:45 Albuterol HFA [Ventolin HFA 90 mcg/actuation (8 g)] 2 puff INH Q6 #1 inhaler 01/08/18 Lisinopril [Zestril] 10 mg PO DAILY #30 tab 01/08/18 Sertraline [Zoloft] 75 mg PO DAILY 30 Days #90 tab 07/15/18 risperiDONE [RisperDAL Tab] 4 mg PO HS 30 Days #60 tab 07/15/18 traZODone [Desyrel] 100 mg PO HS 30 Days #30 tab 07/15/18 Mental Status Examination - Personal Presentation Personal Presentation: Looks older than stated age - Affect Affect: Constricted, Depressed - Motor Activity Motor Activity: Psychomotor Retardation - Reliability in Providing Information Reliability in Providing Information: Poor, due to alteration in thoughts, Poor, due to altered mood - Speech Speech: Relevant - Mood Mood: Depressed, Anxious - Formal Thought Process Formal Thought Process: Hallucinations, Circumstantial - Hallucinations/Delusions Hallucinations: Auditory - Obsessions/Compulsions Obsessions: No Compulsions: No - Cognitive Functions Orientation: Person, Place Sensorium: Alert Attention/Concentration: Easily distracted Judgement: Imparied, as evidence by: Poor judgement, Imparied, as evidence by: Lack of insight into illness - Risk Risk: Suicidal, Diminished functioning - Strength & Assets Inventory Strength & Assets Inventory: Life experience - Limitations Additional comments: poor compliance DSM 5 DX - DSM 5 DSM 5 Diagnosis: schizoaffective disorder cocaine abuse - Recommended/Plan of Treatment Treatment Recommendations and Plan of Treatment: start risperidone start zoloft motivational group and supportive therapy referral to outpatient rehab
--- NOTE | 2018-08-26 22:36 | CP.PCM.CON ---
History of Present Illness - History of Present Illness History of Present Illness: Attending: Dr Balbuena Reason for consult: Management of Asthma and HTN The Patient was seen and examined in the Psychiatric Unit HPI: 47 years old male with hx of asthma, HTH, Suicide Thoughts and Bipolar disorder, brought to the ED by the Police after he tried to jump in front of the light rail. He referred ingesting Alcohol and using Cocaine prior to the incident and has Headaches and mild dizziness. No SOB, dizziness, chest pain/ palpitations, diarrhea, but says he is a little nauseous. PMH: Anxiety, Asthma, Bipolar Disorder, Depression, HTN, Schizophrenia PSH: He denies SH: occasional alcohol; Uses Cocaine and Marijuana; Heavy smoker; homeless FH: Significant for DM; HTN; Renal Failure and CO Allergies: NKDA Medication: Reviewed Review of Systems - Constitutional Constitutional: Headache. absent: Anorexia, Chills, Fatigue, Fever - EENT Eyes: absent: Blurred Vision, Diplopia, Requires Corrective Lenses Ears: absent: Decreased Hearing, Tinnitus Nose/Mouth/Throat: absent: Epistaxis, Nasal Congestion, Sinus Pain, Sinus Pressure - Cardiovascular Cardiovascular: absent: Chest Pain, Dyspnea, Leg Edema - Respiratory Respiratory: absent: Cough, Dyspnea, Wheezing, Stridor - Gastrointestinal Gastrointestinal: absent: Abdominal Pain, Constipation, Diarrhea - Genitourinary Genitourinary: absent: Dysuria, Flank Pain, Urinary Frequency - Musculoskeletal Musculoskeletal: absent: Abnormal Gait, Muscle Cramps, Muscle Weakness - Integumentary Integumentary: absent: Pruritus, Rash, Skin Ulcer, Sores, Striae, Swelling - Neurological Neurological: Dizziness, Headaches. absent: Confusion, Focal Weakness - Psychiatric Psychiatric: Anxiety, Depression, Hallucinations. absent: Confusion - Endocrine Endocrine: absent: Palpitations, Polydipsia, Polyphagia, Polyuria - Hematologic/Lymphatic Hematologic: absent: Easy Bleeding, Easy Bruising Past Patient History - Infectious Disease Hx of Infectious Diseases: None - Tetanus Immunizations Tetanus Immunization: Unknown - Past Medical History & Family History Past Medical History?: Yes - Past Social History Smoking Status: Heavy Smoker > 10 Cigarettes Daily Chewing Tobacco Use: No Cigar Use: No Alcohol: Occasional Drugs: Cannabis, Cocaine Home Situation {Lives}: Homeless - CARDIAC Hx Cardiac Disorders: Yes Hx Hypertension: Yes - PULMONARY Hx Asthma: Yes Hx Tuberculosis: No - NEUROLOGICAL HX Cerebrovascular Accident: No Hx Seizures: No - HEENT Hx HEENT Problems: No - RENAL Hx Chronic Kidney Disease: No - ENDOCRINE/METABOLIC Hx Endocrine Disorders: No - HEMATOLOGICAL/ONCOLOGICAL Hx Cancer: No Hx Human Immunodeficiency Virus (HIV): No - INTEGUMENTARY Hx Dermatological Problems: No - MUSCULOSKELETAL/RHEUMATOLOGICAL Hx Musculoskeletal Disorders: No - GASTROINTESTINAL Hx Gastrointestinal Disorders: No - GENITOURINARY/GYNECOLOGICAL Hx Sexually Transmitted Disorders: No - PSYCHIATRIC Hx Anxiety: Yes Hx Bipolar Disorder: Yes Hx Depression: Yes Hx Schizophrenia: Yes Hx Substance Use: Yes (cocaine use) - SURGICAL HISTORY Hx Surgeries: No - ANESTHESIA Hx Anesthesia: No Hx Anesthesia Reactions: No Meds Allergies/Adverse Reactions: Allergies Allergy/AdvReac Type Severity Reaction Status Date / Time No Known Allergies Allergy Verified 08/26/18 03:45 - Medications Medications: Current Medications Acetaminophen (Tylenol 325mg Tab) 650 mg PO Q4 PRN PRN Reason: Pain, moderate (4-7) Al Hydrox/Mg Hydrox/Simethicone (Maalox Plus 30 Ml) 30 ml PO Q4 PRN PRN Reason: Dyspepsia Diphenhydramine HCl (Benadryl) 50 mg IM Q6 PRN PRN Reason: Extrapyramidal S/S Unable PO Diphenhydramine HCl (Benadryl) 50 mg PO Q6 PRN PRN Reason: Extrapyramidal Symptoms Diphenhydramine HCl (Benadryl) 50 mg PO HS PRN PRN Reason: Sleep Haloperidol (Haldol) 5 mg PO Q4 PRN PRN Reason: Agitation Haloperidol Lactate (Haldol) 5 mg IM Q4 PRN PRN Reason: Agitation, Unable to Take PO Lorazepam (Ativan) 1 mg PO Q8 PRN PRN Reason: Anxiety/Agitation Magnesium Hydroxide (Milk Of Magnesia) 30 ml PO HS PRN PRN Reason: Constipation Risperidone (Risperdal Tab) 2 mg PO HS [facility] Last Admin: 08/26/18 21:03 Dose: 2 mg Sertraline HCl (Zoloft) 50 mg PO DAILY CLAUDIA Trazodone HCl (Desyrel) 50 mg PO HS [facility] Last Admin: 08/26/18 21:03 Dose: 50 mg Physical Exam - Constitutional Appears: No Acute Distress - Head Exam Head Exam: ATRAUMATIC, NORMAL INSPECTION, NORMOCEPHALIC - Eye Exam Eye Exam: EOMI, Normal appearance Pupil Exam: NORMAL ACCOMODATION, PERRL - ENT Exam ENT Exam: Mucous Membranes Moist, Normal Exam, Normal External Ear Exam - Neck Exam Neck exam: Positive for: Full Rom, Normal Inspection. Negative for: Lymphadenopathy, Tenderness - Respiratory Exam Respiratory Exam: Clear to Auscultation Bilateral. absent: Rales, Rhonchi, Wheezes - Cardiovascular Exam Cardiovascular Exam: REGULAR RHYTHM, RRR, +S1, +S2. absent: Gallop, JVD - GI/Abdominal Exam GI & Abdominal Exam: Normal Bowel Sounds, Soft. absent: Mass, Organomegaly, Tenderness - Rectal Exam Rectal Exam: Deferred - Extremities Exam Extremities exam: Positive for: full ROM, normal inspection. Negative for: calf tenderness, pedal edema - Back Exam Back exam: NORMAL INSPECTION. absent: CVA tenderness (L), CVA tenderness (R) - Neurological Exam Neurological exam: Alert, CN II-XII Intact, Oriented x3, Reflexes Normal - Psychiatric Exam Psychiatric exam: Normal Affect, Normal Mood - Skin Skin Exam: Dry, Intact, Normal Color, Warm Results - Vital Signs Recent Vital Signs: Last Vital Signs Temp 97.4 F L 08/26/18 17:00 Pulse 87 08/26/18 17:00 Resp 18 08/26/18 17:00 BP 125/86 08/26/18 17:00 Pulse Ox 98 08/26/18 02:30 - Labs Result Diagrams: 08/26/18 00:40 08/26/18 00:40 Labs: Laboratory Results - last 24 hr 08/25/18 08/26/18 08/26/18 23:57 00:40 00:40 WBC 8.0 D RBC 4.96 Hgb 12.9 Hct 39.4 MCV 79.4 L MCH 26.0 L MCHC 32.8 L RDW 13.6 Plt Count 282 Sodium 141 Potassium 3.7 Chloride 102 Carbon Dioxide 24 Anion Gap 19 BUN 12 Creatinine 1.1 Est GFR ( Amer) > 60 Est GFR (Non-Af Amer) > 60 POC Glucose (mg/dL) 112 H Random Glucose 96 Hemoglobin A1c Calcium 9.6 Magnesium 1.7 Total Bilirubin 0.8 AST 31 ALT 30 Alkaline Phosphatase 54 Total Protein 7.7 Albumin 4.7 Globulin 3.0 Albumin/Globulin Ratio 1.5 Triglycerides Cholesterol LDL Cholesterol Direct HDL Cholesterol Thyroxine (T4) TSH 3rd Generation Urine Opiates Screen Urine Methadone Screen Ur Barbiturates Screen Ur Phencyclidine Scrn Ur Amphetamines Screen U Benzodiazepines Scrn U Oth Cocaine Metabols U Cannabinoids Screen Alcohol, Quantitative 62 H RPR 08/26/18 08/26/18 08/26/18 00:40 08:15 08:15 WBC RBC Hgb Hct MCV MCH MCHC RDW Plt Count Sodium Potassium Chloride Carbon Dioxide Anion Gap BUN Creatinine Est GFR ( Amer) Est GFR (Non-Af Amer) POC Glucose (mg/dL) Random Glucose Hemoglobin A1c 5.8 Calcium Magnesium Total Bilirubin AST ALT Alkaline Phosphatase Total Protein Albumin Globulin Albumin/Globulin Ratio Triglycerides 59 D Cholesterol 160 LDL Cholesterol Direct 101 HDL Cholesterol 58 Thyroxine (T4) 10.6 TSH 3rd Generation 0.58 Urine Opiates Screen Negative Urine Methadone Screen Negative Ur Barbiturates Screen Negative Ur Phencyclidine Scrn Negative Ur Amphetamines Screen Negative U Benzodiazepines Scrn Negative U Oth Cocaine Metabols Positive H U Cannabinoids Screen Negative Alcohol, Quantitative RPR 08/26/18 08:15 WBC RBC Hgb Hct MCV MCH MCHC RDW Plt Count Sodium Potassium Chloride Carbon Dioxide Anion Gap BUN Creatinine Est GFR ( Amer) Est GFR (Non-Af Amer) POC Glucose (mg/dL) Random Glucose Hemoglobin A1c Calcium Magnesium Total Bilirubin AST ALT Alkaline Phosphatase Total Protein Albumin Globulin Albumin/Globulin Ratio Triglycerides Cholesterol LDL Cholesterol Direct HDL Cholesterol Thyroxine (T4) TSH 3rd Generation Urine Opiates Screen Urine Methadone Screen Ur Barbiturates Screen Ur Phencyclidine Scrn Ur Amphetamines Screen U Benzodiazepines Scrn U Oth Cocaine Metabols U Cannabinoids Screen Alcohol, Quantitative RPR Nonreactive - Impressions Impression: NSR 100/min Assessment & Plan - Assessment and Plan (Free Text) Plan: 47 years old male with hx of asthma, HTH, Suicide Thoughts and Bipolar disorder, brought to the ED by the Police after he tried to jump in front of the light rail. He referred ingesting Alcohol and using Cocaine prior to the incident and has Headaches and mild dizziness. No SOB, dizziness, chest pain/palpitations, diarrhea, but says he is a little nauseous. #. Headache/ nausea due to the Alcohol and Cocaine ingestion - Tylenol for Headache - Zofran for Nausea #. Cocaine abuse - Ativan PRN #. HTN - Lisinopril - follow Blood pressures #. Asthma Stable - Albuterol PRN #. Schizoaffective disorder - Psychiatric management #. Code Status: Full - Date & Time Date: 08/26/18 Time: 22:36
[2018-08-27] MEDS ORDERED: Albuterol HFA 90 mcg/actuation (8 g) INH PRN (04:00)
--- NOTE | 2018-08-28 14:32 | PCM.PYCHPN ---
Psychiatric Progress Note - Psychiatric Progress Note Patient seen today, length of contact: pt evaluated discussed with team chart reviewed Patient Chief Complaint: I had hard time to sleep Problems Identified/Issues Discussed: pt seen in day room, reported feeling anxious, related that tp poor sleep with early insomnia, discussed increasing trazodone, no reported side effects with increase in zoloft, discussed gradual increase pt denied command hallucinations, denied active thoughts of self harm on the unit Medical Problems: multiple hospiatalizaions, hx of non compliance DSM 5 Symptoms Update: schizoaffective disorder cocaine abuse Medication Change: Yes (increase trazodone ) Medical Record Reviewed: Yes Mental Status Examination - Cognitive Function Orientation: Person, Place, Situation Attention: WNL Concentration: WNL Association: WNL Fund of Knowledge: Poor Decription of patient's judgement and insights: poor insight and judgment - Mood Mood: Depressed, Anxious - Affect Affect: Constricted, Depressed - Formal Thought Process Formal Thought Process: Hallucinations, Circumstantial - Suicidal Ideation Suicidal Ideation: No - Homicidal Ideation Homicidal Ideation: No Goal/Treatment Plan - Goal/Treatment Plan Need for Continued Stay: Severe depression anxiety, Discharge may exacerbated symptoms Progress Toward Problem(s) and Goals/Treatment Plan: risperidone 2mg zoloft 75 mg motivational group and supportive therapy referral to outpatient rehab
--- NOTE | 2018-08-29 10:55 | PCM.PYCHPN ---
Psychiatric Progress Note - Psychiatric Progress Note Patient seen today, length of contact: pt evaluated discussed with team chart reviewed Patient Chief Complaint: I am better Problems Identified/Issues Discussed: pt seen in his room, reported feeling less anxious, improved sleep with increasing the trazodone , no reported side effects with increase in zoloft, discussed gradual increase pt denied command hallucinations, denied active thoughts of self harm on the unit Medical Problems: multiple hospiatalizaions, hx of non compliance DSM 5 Symptoms Update: schizoaffective disorder depressed ccaine abuse Medication Change: Yes (increase zoloft) Medical Record Reviewed: Yes Mental Status Examination - Cognitive Function Orientation: Person, Place, Situation Attention: WNL Concentration: WNL Association: WNL Fund of Knowledge: Poor Decription of patient's judgement and insights: poor insight and judgment - Mood Mood: Depressed, Anxious - Affect Affect: Constricted, Depressed - Formal Thought Process Formal Thought Process: Hallucinations, Circumstantial - Suicidal Ideation Suicidal Ideation: No - Homicidal Ideation Homicidal Ideation: No Goal/Treatment Plan - Goal/Treatment Plan Need for Continued Stay: Severe depression anxiety, Discharge may exacerbated symptoms Progress Toward Problem(s) and Goals/Treatment Plan: risperidone 2mg increase zoloft 100 mg trazodone 100 mg qhs motivational group and supportive therapy referral to outpatient rehab
--- NOTE | 2018-08-29 12:02 | PCM.BM ---
Treatment Plan Problems - Problems identified on initial assessmt Self Harm Date Initiated: 08/26/18 Time Initiated: 02:58 Assessment reference: NA Status: Active Altered Thought Process Date Initiated: 08/26/18 Time Initiated: 02:58 Assessment reference: NA Status: Active Hopelessness/Helplessness Date Initiated: 08/26/18 Time Initiated: 02:59 Assessment reference: NA Status: Active Feelings of Worthlessness Date Initiated: 08/26/18 Time Initiated: 02:59 Assessment reference: NA Status: Active Substance use] Date Initiated: 08/29/18 Time Initiated: 12:02 Assessment reference: NA Status: Active Treatment assets and liabiliti Patient Assests: adapts well, cooperative, insightful, motivated, resourceful, self-reliant, ADL independent, physically healthy, negotiates basic needs, cognitively intact Patient Liabilities: live alone (Pt. currently homeless but working with [employer] to acquire stable housing.) - Milieu Protocol Maintain good personal hygiene: every shift Encourage regular showers, every shift Remind patient to perform daily oral care, every shift Assist patient to perform ADL's Maintain personal safety: daily Educate patient to report safety concerns to staff, daily Monitor environment for contraband/sharps Medication safety: Monitor for expected outcome, potential side effects: daily, Assess barriers to learning: daily, Assess readiness for medication education: daily Milieu Narrative: risperidone 2mg increase zoloft 100 mg trazodone 100 mg qhs motivational group and supportive therapy referral to outpatient rehab Family Contact Family involvement: Famliy/SO not involved Family contact: Patient declines to allow family contact at present - Outside Agency Agency 1 Care involvment: Following patient during stay, Information-sharing, Other Agency contact name: [facility] Agency contact number: [phone] - Goals for Treatment Patient goals for treatment: Patient to continue stabilization on 3NP through medication management and group/supportive therapy to address sxs of depression, decrease AH and eliminate SI. Patient to be encouraged to attend groups regularly to promote self-awareness, sobriety, and improve insight, compliance, coping skills and self-esteem. Patient to be provided with referral for appropriate level of aftercare to reduce risk of future hospitalizations and ensure safety in the community. Pt. identified tx goal to explore healthy ways to celebrate successes/have fun to minimize triggers and maintain sobriety in the community. Discharge/Continuing Care - Education Needs Education Needs: Patient Medication, Patient Diagnosis/Disease Process, Patient Coping Skills, Patient Community resources, Patient Aftercare Safety Plan - Discharge Discharge Criteria: Tolerates medication w/o severe side effects, Free of Suicidal thoughts, Normal sleep pattern, Ability to care for self, No longer exhibiting s/s of withdrawal Discharge to:: Group Home (Pt. currently staying with [facility]), Other ([facility], Outpatient Substance Abuse Services ) - Treatment Team Participation Patient/Family/SO Statement: risperidone 2mg increase zoloft 100 mg trazodone 100 mg qhs motivational group and supportive therapy referral to outpatient rehab Discussed with Family/SO: No Was Patient/Family/SO present at Treatment Team Meeting: Yes
--- NOTE | 2018-08-30 12:50 | PCM.PYCHPN ---
Psychiatric Progress Note - Psychiatric Progress Note Patient seen today, length of contact: pt evaluated discussed with team chart reviewed Patient Chief Complaint: I am feeling alright Problems Identified/Issues Discussed: pt seen in day room, reported feeling less anxious, less depressed, affect less constricted , no reported side effects with increase in zoloft, reported clearing off of the auditory hallucinations pt denied command hallucinations, denied active thoughts of self harm on the unit Medical Problems: multiple hospiatalizaions, hx of non compliance DSM 5 Symptoms Update: cocaine dependence schizoaffective disorder depressed Medication Change: No Medical Record Reviewed: Yes Mental Status Examination - Cognitive Function Orientation: Person, Place, Situation Attention: WNL Concentration: WNL Association: WNL Fund of Knowledge: Poor Decription of patient's judgement and insights: poor insight and judgment - Mood Mood: Anxious - Affect Affect: Constricted, Depressed - Speech Speech: Soft - Formal Thought Process Formal Thought Process: Hallucinations, Circumstantial - Suicidal Ideation Suicidal Ideation: No - Homicidal Ideation Homicidal Ideation: No Goal/Treatment Plan - Goal/Treatment Plan Need for Continued Stay: Severe depression anxiety, Discharge may exacerbated symptoms Progress Toward Problem(s) and Goals/Treatment Plan: risperidone 2mg zoloft 100 mg trazodone 100 mg qhs motivational group and supportive therapy referral to outpatient rehab
--- NOTE | 2018-08-31 09:11 | PCM.PYCHPN ---
Psychiatric Progress Note - Psychiatric Progress Note Patient seen today, length of contact: Pt evaluated, case discussed w/ team, chart reviewed Patient Chief Complaint: Depression/Anxiety Problems Identified/Issues Discussed: Patient reports that his mood is improving. He feels less depressed and less anxious. He denies acute AH/VH/SI/HI. He states that he uses coping strategies of drawing when he feels stressed. Medication Change: No Medical Record Reviewed: Yes Consults ordered or reviewed: Medicine consult Mental Status Examination - Cognitive Function Orientation: Person, Place, Situation, Time Memory: Intact Attention: WNL Concentration: WNL Association: WNL Fund of Knowledge: Poor Decription of patient's judgement and insights: Improving I/J - Mood Mood: Anxious - Affect Affect: Constricted, Depressed - Speech Speech: Soft - Formal Thought Process Formal Thought Process: Circumstantial Psychotic Thoughts and Behaviors: Denies acute AH/VH - Suicidal Ideation Suicidal Ideation: No - Homicidal Ideation Homicidal Ideation: No Goal/Treatment Plan - Goal/Treatment Plan Need for Continued Stay: Severe depression anxiety, Discharge may exacerbated symptoms Progress Toward Problem(s) and Goals/Treatment Plan: Schizoaffective Disorder; Cocaine Use Disorder -Continue current medications -Individual and group therapy -Psychoeducation -Disposition planning
--- NOTE | 2018-09-01 10:15 | PCM.PYCHPN ---
Psychiatric Progress Note - Psychiatric Progress Note Patient seen today, length of contact: Pt evaluated, case discussed w/ team, chart reviewed Patient Chief Complaint: Depression/Anxiety Problems Identified/Issues Discussed: Patient reports that his mood continues to improve. He feels less depressed and less anxious. He denies acute AH/VH/SI/HI. No adverse effects to medications reported. Medication Change: No Medical Record Reviewed: Yes Consults ordered or reviewed: Medicine consult Mental Status Examination - Cognitive Function Orientation: Person, Place, Situation, Time Memory: Intact Attention: WNL Concentration: WNL Association: WNL Fund of Knowledge: WN Decription of patient's judgement and insights: Improving I/J - Mood Mood: Anxious - Affect Affect: Constricted - Speech Speech: Soft - Formal Thought Process Formal Thought Process: No Impairment Psychotic Thoughts and Behaviors: Denies acute AH/VH - Suicidal Ideation Suicidal Ideation: No - Homicidal Ideation Homicidal Ideation: No Goal/Treatment Plan - Goal/Treatment Plan Need for Continued Stay: Discharge may exacerbated symptoms Progress Toward Problem(s) and Goals/Treatment Plan: Schizoaffective Disorder; Cocaine Use Disorder -Continue current medications -Individual and group therapy -Psychoeducation -Disposition planning
--- NOTE | 2018-09-02 14:10 | PCM.PYCHPN ---
Psychiatric Progress Note - Psychiatric Progress Note Patient seen today, length of contact: Pt evaluated, case discussed w/ team, chart reviewed Patient Chief Complaint: reports is beginning to feel calmer and less depressed denies side effects medications. team reports pt seen about unit.i Problems Identified/Issues Discussed: alteration in mood alteration in coping Medical Problems: per chart Diagnostic Results: per psychiatry per medicine per nursing per social work nurse per recreational therapy Medication Change: No Medical Record Reviewed: Yes Consults ordered or reviewed: pt seen by hospitalist Mental Status Examination - Cognitive Function Orientation: Person, Place, Situation, Time Memory: Intact Attention: WNL Concentration: WNL Association: WN Fund of Knowledge: [facility] Decription of patient's judgement and insights: somewhat impaired - Mood Mood: Anxious - Affect Affect: Constricted - Speech Speech: Soft - Formal Thought Process Formal Thought Process: No Impairment - Suicidal Ideation Suicidal Ideation: No - Homicidal Ideation Homicidal Ideation: No Goal/Treatment Plan - Goal/Treatment Plan Need for Continued Stay: Discharge may exacerbated symptoms Progress Toward Problem(s) and Goals/Treatment Plan: inpt milieu adjust meds per status vital signs and clinical observation per protocol and per clinical status discharge planning in progress Estimated Date of D/C: 09/03/18 - Smoking Cessation Smoking Cessation Initiated: No Reason for not providing: defers
[2018-09-03 09:06] VITALS: BP 121/65; PULSE 85; RESP 16; TEMP 96.8
--- NOTE | 2018-09-03 11:11 | PCM.PYCHDC ---
Mental Status Examination - Mental Status Examination Orientation: Person, Place, Situation Memory: Intact Mood: Neutral Affect: Broad Speech: Appropriate Attention: WNL Concentration: WNL Association: WNL Fund of Knowledge: WNL Formal Thought Process: No Impairment Description of patient's judgement and insight: poor insight and judgment Psychotic Thoughts and Behaviors: pt on discharge denied psychotic symptoms, non elicited Suicidal Ideation: No Current Homicidal Ideation?: No Discharge Summary - Discharge Note Reason for Hospitalization: pt is 47ys old male with previous psychiatric diagnosis of schizophrenia, non compliant with medications or follow up, became increasingly depressed for stress at work and financial stress,relapsed on cocaine started experiencing command auditory hallucinations, telling him to hurt himself . came to er seeking help, on unit pt reported depressed mood, experiencing auditory hallucinations putting him down feeling hopeless and helpless with passive suicidal ideation, feeling unable to cope with his illness Consultations:: List each consultation separately and include: 1. Reason for request. 2. Findings. 3. Follow-up Summary of Hospital Course include:: 1. Description of specific treatment plan utilized for patients during their course of treatmen. 2. Summarize the time- course for resolution of acute symptoms and/or regressed behaviors. 3. Describe issues identified and worked on during hospitalization. 4. Describe medication utilized. 5. Describe medical problems identified and treated. 6. Reassessment of suicide risk Summary of Hospital Course: pt on admission presented with auditory hallucinations, depressed mood, pt was started on zoloft , it was increased gradually to 100mg, risperidone 2mg motivational therapy provided in reference to effect of cocaine use on current mental status pt was compliant with treatment, , attended groups, no reported side effects on discharge mental status was stable pt denied any current suicidal or homicidal ideation, denied perceptual disturbances, follow up arranged by public health social worker at outpatient [facility] - Diagnosis (1) Cocaine abuse Current Visit: No Status: Acute - Final Diagnosis (DSM 5) Condition upon Discharge: STABLE 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
== END 2018-09-03 14:30 | disposition home or self-care (01) | DRG 747 ==
LOC: H.ER 22:59 → H.ERHOLD 08-26 01:24 → H.PSYCH 08-26 02:37
PROVIDERS: ADMIT Psychiatry & Neurology Psychiatry; ATTEND Psychiatry & Neurology Psychiatry
PROC: HZ57ZZZ Individual Psychotherapy for Substance Abuse Treatment, Motivational Enhancement (ICD-10-PCS; principal; 2018-08-26)
PROC: HZ59ZZZ Individual Psychotherapy for Substance Abuse Treatment, Supportive (ICD-10-PCS; 2018-08-26)
PROC: GZHZZZZ Group Psychotherapy (ICD-10-PCS; 2018-08-26)
DX: F14.14 Cocaine abuse with cocaine-induced mood disorder (principal); F25.1 Schizoaffective disorder, depressive type; F14.151 Cocaine abuse with cocaine-induced psychotic disorder with hallucinations; J45.909 Unspecified asthma, uncomplicated; I10 Essential (primary) hypertension; Z79.51 Long term (current) use of inhaled steroids; R45.851 Suicidal ideations; Z91.14 Patient's other noncompliance with medication regimen; Z91.19 Patient's noncompliance with other medical treatment and regimen; Z59.0 Homelessness; F17.210 Nicotine dependence, cigarettes, uncomplicated

== ENCOUNTER 2018-10-07 07:14 | Emergency (ER) | payer MEDICAID ==
[2018-10-07 07:17] VITALS: BMI 23.2
--- NOTE | 2018-10-07 09:19 | ED PDOC ---
HPI: Headache Time Seen by Provider: 10/07/18 07:18 Chief Complaint (Nursing): Headache History Per: Patient History/Exam Limitations: no limitations Onset/Duration Of Symptoms: Days Current Symptoms Are (Timing): Still Present Additional Complaint(s): Hx of HTN, schizophrenia presenting with chills, subjective fevers, bodyaches, headache since yesterday. Did not take temperature, did not take any medications. No sick contacts or recent travel. No nausea, vomiting, diarrhea. Past Medical History Reviewed: Historical Data, Nursing Documentation, Vital Signs Vital Signs: Last Vital Signs Temp 97.9 F 10/07/18 07:18 Pulse 89 10/07/18 07:18 Resp 16 10/07/18 07:18 BP 144/90 10/07/18 07:18 Pulse Ox 97 10/07/18 07:18 - Medical History PMH: Anxiety, Asthma, Bipolar Disorder, Depression, HTN, Schizophrenia Denies: Diabetes, Hepatitis, HIV, Chronic Kidney Disease, Seizures, Sexually Transmitted Disease - Family History Family History: States: Unknown Family Hx - Immunization History Hx Tetanus Toxoid Vaccination: No Hx Influenza Vaccination: No Hx Pneumococcal Vaccination: No - Home Medications Home Medications: Ambulatory Orders Medication Instructions Recorded Albuterol HFA [Ventolin HFA 90 2 puff INH Q6 #1 inhaler 01/08/18 mcg/actuation (8 g)] Lisinopril [Zestril] 10 mg PO DAILY #30 tab 01/08/18 Sertraline [Zoloft] 100 mg PO DAILY 30 Days #30 tab 09/03/18 risperiDONE [RisperDAL Tab] 2 mg PO HS 30 Days #30 tab 09/03/18 traZODone [Desyrel] 100 mg PO HS 30 Days #30 tab 09/03/18 Oseltamivir Phosphate [Tamiflu] 75 mg PO BID 5 Days #10 capsule 10/07/18 - Allergies Allergies/Adverse Reactions: Allergies Allergy/AdvReac Type Severity Reaction Status Date / Time No Known Allergies Allergy Verified 08/26/18 03:45 Review of Systems ROS Statement: Except As Marked, All Systems Reviewed And Found Negative Constitutional: Positive for: Fever, Chills, Sweats Cardiovascular: Negative for: Chest Pain Respiratory: Positive for: Cough Gastrointestinal: Negative for: Nausea, Vomiting Musculoskeletal: Positive for: Arm Pain, Back Pain, Hand Pain, Leg Pain, Other (Body Pain) Physical Exam - Reviewed Nursing Documentation Reviewed: Yes Vital Signs Reviewed: Yes - Physical Exam Appears: Positive for: Well, Non-toxic, No Acute Distress Head Exam: Positive for: ATRAUMATIC, NORMAL INSPECTION, NORMOCEPHALIC Skin: Positive for: Normal Color, Warm, DRY Eye Exam: Positive for: EOMI, Normal appearance, PERRL ENT: Positive for: Normal ENT Inspection Neck: Positive for: Normal, Painless ROM Cardiovascular/Chest: Positive for: Regular Rate, Rhythm Respiratory: Positive for: CNT, Normal Breath Sounds Gastrointestinal/Abdominal: Positive for: Normal Exam, Soft Back: Positive for: Normal Inspection Extremity: Positive for: Normal ROM Neurologic/Psych: Positive for: Alert, manager performance II-XII, Oriented. Negative for: Motor/Sensory Deficits - ECG O2 Sat by Pulse Oximetry: 97 Pulse Ox Interpretation: Normal Medical Decision Making Medical Decision Making: Well appearing 47-year old M with bodyaches, subjective fevers, chills --Likely flu --Normal vitals --Nontoxic appearing --Suitable for outpatient followup Disposition - Clinical Impression Clinical Impression: Influenza - Patient ED Disposition Is Patient to be Admitted: No - Disposition Referrals: [facility] [Outside] Disposition: Routine/Home Disposition Time: 09:20 Condition: STABLE Prescriptions: Oseltamivir Phosphate [Tamiflu] 75 mg PO BID 5 Days #10 capsule Instructions: Flu Forms: [employer] (Swiss)
[2018-10-07 10:02] VITALS: BP 135/77; PULSE 82; RESP 20; TEMP 98.2; O2SAT 98
== END 2018-10-07 10:00 | disposition home or self-care (01) ==
LOC: H.ER 07:14
DX: J11.1 Influenza due to unidentified influenza virus with other respiratory manifestations (principal); J45.909 Unspecified asthma, uncomplicated; I10 Essential (primary) hypertension; Z86.59 Personal history of other mental and behavioral disorders

== ENCOUNTER 2018-10-31 18:01 | Emergency (ER) | payer MEDICAID ==
[2018-10-31 18:01] VITALS: BMI 23.2
[2018-10-31] MEDS ORDERED: DiphenhydrAMINE 50 mg/ml Inj IM STA (18:21)
[2018-10-31] MEDS ORDERED: Sodium Chloride 0.9% 1,000 ML IV SCH (18:30)
[2018-10-31] MEDS ORDERED: DiphenhydrAMINE 50 mg/ml Inj IVP STA (18:30)
--- NOTE | 2018-10-31 18:30 | ED PDOC ---
HPI: Headache Time Seen by Provider: 10/31/18 18:20 Chief Complaint (Nursing): Headache Chief Complaint (Provider): Headache History Per: Patient History/Exam Limitations: no limitations Onset/Duration Of Symptoms: Hrs (30 prior to arrival) Current Symptoms Are (Timing): Still Present Additional Complaint(s): 47 year old male presents to the ED for an evaluation of migraine headache onset 30 minutes prior to arrival. Patient takes 800mg Ibuprofen for the headache. The headache has worsened associated with light sensitivity. Otherwise he denies fever, cough or sick contacts. PMD: no family provider Past Medical History Reviewed: Historical Data, Nursing Documentation, Vital Signs Vital Signs: Last Vital Signs Temp 97.1 F L 10/31/18 18:03 Pulse 80 10/31/18 18:03 Resp 18 10/31/18 18:03 BP 160/90 H 10/31/18 18:03 Pulse Ox 99 10/31/18 18:03 - Medical History PMH: Anxiety, Asthma, Bipolar Disorder, Depression, HTN, Schizophrenia Denies: Diabetes, Hepatitis, HIV, Chronic Kidney Disease, Seizures, Sexually Transmitted Disease - Family History Family History: States: Unknown Family Hx - Immunization History Hx Tetanus Toxoid Vaccination: No Hx Influenza Vaccination: No Hx Pneumococcal Vaccination: No - Home Medications Home Medications: Ambulatory Orders Medication Instructions Recorded RX: Albuterol HFA [Ventolin HFA 90 2 puff INH Q6 #1 inhaler 01/08/18 mcg/actuation (8 g)] RX: Lisinopril [Zestril] 10 mg PO DAILY #30 tab 01/08/18 RX: Sertraline [Zoloft] 100 mg PO DAILY 30 Days #30 tab 09/03/18 RX: risperiDONE [RisperDAL Tab] 2 mg PO HS 30 Days #30 tab 09/03/18 RX: traZODone [Desyrel] 100 mg PO HS 30 Days #30 tab 09/03/18 Oseltamivir Phosphate [Tamiflu] 75 mg PO BID 5 Days #10 capsule 10/07/18 RX: Ibuprofen [Motrin Tab] 600 mg PO Q6 #30 tab 10/07/18 RX: Indomethacin 1 cap PO TID PRN #30 capsule 10/31/18 - Allergies Allergies/Adverse Reactions: Allergies Allergy/AdvReac Type Severity Reaction Status Date / Time No Known Allergies Allergy Verified 08/26/18 03:45 Review of Systems ROS Statement: Except As Marked, All Systems Reviewed And Found Negative Constitutional: Negative for: Fever, Chills Respiratory: Negative for: Cough, Shortness of Breath Neurological: Positive for: Headache. Negative for: Weakness, Numbness Physical Exam - Reviewed Nursing Documentation Reviewed: Yes Vital Signs Reviewed: Yes - Physical Exam Appears: Positive for: Well, Non-toxic, Uncomfortable Head Exam: Positive for: ATRAUMATIC, NORMAL INSPECTION, NORMOCEPHALIC Skin: Positive for: Normal Color, Warm, Dry. Negative for: Rash Eye Exam: Positive for: EOMI, Normal appearance, PERRL Cardiovascular/Chest: Positive for: Regular Rate, Rhythm. Negative for: Murmur Respiratory: Positive for: Normal Breath Sounds. Negative for: Decreased Breath Sounds, Wheezing, Respiratory Distress Neurologic/Psych: Positive for: Alert, Oriented (x3). Negative for: Motor/Sensory Deficits - ECG O2 Sat by Pulse Oximetry: 99 (RA) Pulse Ox Interpretation: Normal Medical Decision Making Medical Decision Making: Time: 1805 Plan: Benadryl 50mg Indocin 50mg Normal Saline 1000 mls/hr Acetaminophen 650mg Reevaluation Upon provider evaluation patient is medically stable, and requires no further treatment in the ED at this time. Patient will be discharged home. Counseling was provided and all questions were answered regarding diagnosis and need for follow up with neighborhood clinic. There is agreement to discharge plan. Return if symptoms persist or worsen. Scribe Attestation: Documented by Bolivar Lao, acting as a scribe Mane Hendrickson PA-C Provider Scribe Attestation: All medical record entries made by the Scribe were at my direction and personally dictated by me. I have reviewed the chart and agree that the record accurately reflects my personal performance of the history, physical exam, medical decision making, and the department course for this patient. I have also personally directed, reviewed, and agree with the discharge instructions and disposition. Disposition - Clinical Impression Clinical Impression: Migraine aura, persistent - Disposition Referrals: [facility] [Outside] Disposition: Routine/Home Disposition Time: 22:00 Condition: STABLE Prescriptions: RX: Indomethacin 1 cap PO TID PRN #30 capsule PRN Reason: Headache Instructions: Migraine Headache (DC), Headache, Adult (DC), Migraine Headaches in Adults Forms: [facility] (American), [facility] ED School/Work Excuse
[2018-10-31] MEDS ORDERED: DiphenhydrAMINE 50 mg/ml Inj ONE (18:43)
[2018-10-31 21:10] VITALS: BP 131/72; PULSE 76; RESP 15; TEMP 97.9
[2018-10-31 21:11] VITALS: O2SAT 99
== END 2018-10-31 21:18 | disposition home or self-care (01) ==
LOC: H.ER 18:01
DX: G43.509 Persistent migraine aura without cerebral infarction, not intractable, without status migrainosus (principal); F20.9 Schizophrenia, unspecified; F31.9 Bipolar disorder, unspecified; F41.9 Anxiety disorder, unspecified; I10 Essential (primary) hypertension; J45.909 Unspecified asthma, uncomplicated
CPT/HCPCS: 82948; 96374; 99285; J1200; J7030

== ENCOUNTER 2018-11-19 18:52 | Emergency (ER) | payer MEDICAID ==
[2018-11-19 18:52] VITALS: BMI 23.2
[2018-11-19 18:55] VITALS: O2SAT 100
--- NOTE | 2018-11-19 19:42 | ED PDOC ---
HPI: Abdomen Time Seen by Provider: 11/19/18 19:13 Chief Complaint (Nursing): GI Problem Chief Complaint (Provider): Abdominal Pain and Flu Like Symptoms History Per: Patient History/Exam Limitations: no limitations Onset/Duration Of Symptoms: Days (two days) Outside of [place] travel?: No Current Symptoms Are (Timing): Still Present Severity: Mild Associated Symptoms: Chills, Nausea, Vomiting, Diarrhea, Loss Of Appetite Alleviating Factors: None Last Bowel Movement: Today Additional Complaint(s): Pt presents to the ED complaining of two days of abdominal pain, congestion, cough, fever (pt is afebrile in the ED), nausea, vomiting and diarhhea. Pt indicates that he can keep no food down and that his abdominal pain is diffuse, affecting most recently, within the last hour prior to presntation, his testicals bilaterally. Past Medical History Reviewed: Historical Data, Nursing Documentation, Vital Signs Vital Signs: Last Vital Signs Temp 97.8 F 11/19/18 18:53 Pulse 110 H 11/19/18 18:53 Resp 16 11/19/18 18:53 BP 114/73 11/19/18 18:53 Pulse Ox 100 11/19/18 18:53 - Medical History PMH: Anxiety, Asthma, Bipolar Disorder, Depression, HTN, Schizophrenia Denies: Diabetes, Hepatitis, HIV, Chronic Kidney Disease, Seizures, Sexually Transmitted Disease - Family History Family History: States: Unknown Family Hx - Immunization History Hx Tetanus Toxoid Vaccination: No Hx Influenza Vaccination: No Hx Pneumococcal Vaccination: No - Home Medications Home Medications: Ambulatory Orders Medication Instructions Recorded Albuterol HFA [Ventolin HFA 90 2 puff INH Q6 #1 inhaler 01/08/18 mcg/actuation (8 g)] Lisinopril [Zestril] 10 mg PO DAILY #30 tab 01/08/18 Sertraline [Zoloft] 100 mg PO DAILY 30 Days #30 tab 09/03/18 risperiDONE [RisperDAL Tab] 2 mg PO HS 30 Days #30 tab 09/03/18 traZODone [Desyrel] 100 mg PO HS 30 Days #30 tab 09/03/18 Ibuprofen [Motrin Tab] 600 mg PO Q6 #30 tab 10/07/18 Oseltamivir Phosphate [Tamiflu] 75 mg PO BID 5 Days #10 capsule 10/07/18 Indomethacin 1 cap PO TID PRN #30 capsule 10/31/18 - Allergies Allergies/Adverse Reactions: Allergies Allergy/AdvReac Type Severity Reaction Status Date / Time No Known Allergies Allergy Verified 11/19/18 18:53 Review of Systems ROS Statement: Except As Marked, All Systems Reviewed And Found Negative Constitutional: Positive for: Fever, Chills ENT: Positive for: Nose Discharge, Nose Congestion Respiratory: Positive for: Cough Gastrointestinal: Positive for: Nausea, Vomiting, Abdominal Pain, Diarrhea Physical Exam - Reviewed Nursing Documentation Reviewed: Yes Vital Signs Reviewed: Yes - Physical Exam Appears: Positive for: Well, Non-toxic, No Acute Distress. Negative for: Uncomfortable Head Exam: Positive for: ATRAUMATIC, NORMAL INSPECTION Skin: Positive for: Normal Color, Warm, Dry. Negative for: Diaphoresis, Pallor, Rash Eye Exam: Positive for: Normal appearance, EOMI, PERRL. Negative for: Nystagmus, Periorbital swelling, Periorbital tenderness ENT: Positive for: Normal ENT Inspection (ENMT: TMs: (-) erythema bilaterally; landmarks are clear and there is positive light reflection bilaterally; TMs intact. Pharynx: (-) Bilateral tonsillar erythema and (-) pharyngeal erythema; _ tonsillar and or pharangeal exudate. (-) deviation of uvula (-) tongue elevation (-) jaw or neck swelling (-) pain upon palpation of the cricoid. Airway widely patent: (-) stridor, (-) hoarseness, (-) drooling (-) trismus. ) Neck: Positive for: Normal, Painless ROM, Supple. Negative for: Decreased ROM Cardiovascular/Chest: Positive for: Regular Rate, Rhythm Respiratory: Positive for: Normal Breath Sounds Pulses-Carotid (L): 2+ Pulses-Carotid (R): 2+ Pulses-Radial (L): 2+ Gastrointestinal/Abdominal: Positive for: Normal Exam, Bowel Sounds (active in all four quadrants), Soft. Negative for: Tenderness (there is no rebound tenderness or guarding; the merckle, rovsing and louis signs are negative as there is also no tenderness at [place] point), Distended, Guarding, Rebound, Asicites Male Genital Exam: Negative for: epididymal tenderness, scrotum tenderness (R), scrotum tenderness (L), testicular tenderness (R), testicular tenderness (L) - ECG O2 Sat by Pulse Oximetry: 100 Medical Decision Making Medical Decision Making: I: gastritis vs influenza vs malingering P: CBC CMP Lipase UA CT Abd and Pelvis with and with Disposition - Clinical Impression Clinical Impression: Gastritis - Patient ED Disposition Is Patient to be Admitted: Transfer of Care - Disposition Disposition: Transfer of Care Disposition Time: 20:00 Condition: STABLE Forms: [email or web address] (Nepalese)
[2018-11-19] MEDS ORDERED: Iohexol 240 (50 ml) ONE (20:02)
[2018-11-19] MEDS: Sodium Chloride 0.9% 1,000 ML IV ONE (20:22)
[2018-11-19] MEDS: Iohexol 240 (50 ml) PO ONE (20:23)
[2018-11-19 20:40] LABS: BASO % 0.5 % (0.0-2.0); EOS % 0.1 % (0.0-4.0); HEMOGLOBIN 13.6 g/dL (12.0-18.0); LYMPH # 0.4 K/uL (1.0-4.3); LYMPH % 8.7 % (20.0-40.0); MEAN CELL VOLUME 79.4 fl (80.0-94.0); MEAN CORPUSCULAR HEMOGLOBIN 25.9 pg (27.0-31.0); MEAN CORPUSCULAR HGB CONC 32.7 g/dL (33.0-37.0); MEAN PLATELET VOLUME 7.7 fl (7.2-11.7); MONO # 0.3 K/uL (0.0-0.8); MONO % 6.3 % (0.0-10.0); NEUT % 84.4 % (50.0-75.0); PLATELET COUNT 224 K/uL (130-400); RBC 5.26 Mil/uL (4.40-5.90); RED CELL DISTRIBUTION WIDTH 14.2 % (11.5-14.5); WHITE BLOOD COUNT 4.7 K/uL (4.8-10.8)
[2018-11-19 20:53] LABS: ALB/GLOB RATIO 1.3 (1.0-2.1); ALBUMIN 4.5 g/dL (3.5-5.0); ALT/SGPT 15 U/L (21-72); AST/SGOT 22 U/L (17-59); BLOOD UREA NITROGEN 22 mg/dl (9-20); CALCIUM 9.2 mg/dL (8.4-10.2); GFR NON-AFRICAN AMERICAN 51; LIPASE 390 U/L (23-300)
[2018-11-19] MEDS ORDERED: Iohexol 300 100 ML IJ ONE (21:30)
[2018-11-19] MEDS ORDERED: Sodium Chloride 0.9% 50 ML IV ONE (21:31)
[2018-11-19 22:45] LABS: LYMPHOCYTE 9 % (20-50); MONOCYTE 4 % (0-10); NEUTROPHIL 87 % (42-75); PLATELET ESTIMATE NORMAL (NORMAL); TOTAL CELLS COUNTED 100
[2018-11-19 22:46] LABS: HYPOCHROMIC SLIGHT; MICROCYTOSIS SLIGHT
[2018-11-19 23:24] LABS: URINE BILIRUBIN NEGATIVE (NEGATIVE); URINE BLOOD NEGATIVE (NEGATIVE); URINE CLARITY CLEAR (Clear); URINE COLOR STRAW (YELLOW); URINE GLUCOSE (UA) NEG (NEGATIVE); URINE LEUKOCYTE ESTERASE NEG Leu/uL (Negative); URINE PROTEIN NEGATIVE (NEGATIVE); URINE UROBILINOGEN 0.2-1.0 mg/dL (0.2-1.0)
--- NOTE | 2018-11-19 23:34 | ED PDOC ---
- Laboratory Results Result Diagrams: 11/19/18 20:22 11/19/18 20:22 Lab Results: Total Bilirubin 1.7 mg/dl (0.2-1.3) H 11/19/18 20:22 AST 22 U/L (17-59) 11/19/18 20:22 ALT 15 U/L (21-72) L D 11/19/18 20:22 Alkaline Phosphatase 61 U/L (38-126) 11/19/18 20:22 Total Protein 7.8 G/DL (6.3-8.2) 11/19/18 20:22 Albumin 4.5 g/dL (3.5-5.0) 11/19/18 20:22 Globulin 3.4 gm/dL (2.2-3.9) 11/19/18 20:22 Albumin/Globulin Ratio 1.3 (1.0-2.1) 11/19/18 20:22 Lipase 390 U/L (23-300) H 11/19/18 20:22 Urine Color Straw (YELLOW) 11/19/18 23:16 Urine Clarity Clear (Clear) 11/19/18 23:16 Urine pH 6.0 (5.0-8.0) 11/19/18 23:16 Ur Specific [place] 1.014 (1.003-1.030) 11/19/18 23:16 Urine Protein Negative mg/dL (NEGATIVE) 11/19/18 23:16 Urine Glucose (UA) Neg mg/dL (NEGATIVE) 11/19/18 23:16 Urine Ketones Negative mg/dL (NEGATIVE) 11/19/18 23:16 Urine Blood Negative (NEGATIVE) 11/19/18 23:16 Urine Nitrate Negative (NEGATIVE) 11/19/18 23:16 Urine Bilirubin Negative (NEGATIVE) 11/19/18 23:16 Urine Urobilinogen 0.2-1.0 mg/dL (0.2-1.0) 11/19/18 23:16 Ur Leukocyte Esterase Neg Reynaldo/uL (Negative) 11/19/18 23:16 Urine RBC (Auto) < 1 /hpf (0-3) 11/19/18 23:16 Urine Microscopic WBC < 1 /hpf (0-5) 11/19/18 23:16 - ECG O2 Sat by Pulse Oximetry: 100 - Progress ED Course And Treament: Case endorsed to contract writer from Madhavi THOMAS pending labs, CT EXAM: CT Abdomen and Pelvis with IV contrast CLINICAL HISTORY: R/o acute abdomen TECHNIQUE: Axial computed tomography images of the abdomen and pelvis with intravenous contrast. 277.28 mGy-cm CONTRAST: With; [id number] 90ML COMPARISON: None provided. FINDINGS: LUNG BASES: Mild linear atelectasis or scarring at the lung bases. LIVER: Unremarkable. GALLBLADDER AND BILE DUCTS: The gallbladder appears within normal limits. No radioopaque gallstones are seen. No biliary ductal dilatation is evident. PANCREAS: Unremarkable. SPLEEN: Unremarkable. ADRENAL GLANDS: Unremarkable. KIDNEYS, URETERS, AND BLADDER: The kidneys appear within normal limits. There is no hydronephrosis or hydroureter. No urinary calculi are seen. STOMACH AND BOWEL: Small hiatal hernia versus patulous mid and distal esophagus. No evidence for bowel obstruction. APPENDIX: Normal appendix is present in the right lower quadrant. PERITONEUM: No pneumoperitoneum. No ascites. LYMPH NODES: No lymphadenopathy in the abdomen or pelvis. REPRODUCTIVE: Unremarkable as visualized. VASCULATURE: No evidence of abdominal aortic aneurysm. BONES: No aggressive appearing osseous lesion. No acute osseous pathology evident. IMPRESSION: 1. Small hiatal hernia versus patulous mid and distal esophagus. 2. Normal appendix is present in the right lower quadrant. 3. No acute pathology identified in the abdomen or pelvis. Patient states he is feeling better on re-eval PAtient educated on findings, discharged with rx Zofran Advised fluids, bland diet Follow up with PMD within 2-3 days Return precautions given Disposition - Clinical Impression Clinical Impression: Gastroenteritis - POA Present On Arrival: None - Disposition Disposition: Routine/Home Disposition Time: 23:37 Condition: IMPROVED Prescriptions: Ondansetron ODT [Zofran ODT] 4 mg PO Q8 PRN #10 odt PRN Reason: Nausea/Vomiting Instructions: Gastroenteritis (ED) Forms: [employer] (Yi)
[2018-11-19 23:38] LABS: BARBITURATES, UR NEGATIVE (NEGATIVE); BENZODIAZEPINES, UR NEGATIVE (NEGATIVE); OPIATES, UR NEGATIVE (NEGATIVE); PHENCYCLIDINE, UR NEGATIVE (NEGATIVE)
[2018-11-20 00:16] VITALS: BP 113/73; PULSE 93; RESP 18; TEMP 98.8
--- NOTE | 2018-11-20 11:12 | CT ---
Date of service: 11/19/2018 PROCEDURE: CT Abdomen and Pelvis with contrast HISTORY: r/o acute abdomen COMPARISON: None. TECHNIQUE: Contrast dose: 90 mL Omnipaque 300 Radiation dose: Total exam DLP = 277.28 mGy-cm. This CT exam was performed using one or more of the following dose reduction techniques: Automated exposure control, adjustment of the mA and/or kV according to patient size, and/or use of iterative reconstruction technique. FINDINGS: LOWER THORAX: Bibasilar and dependent subpleural reticular interstitial prominent lung markings.-subpleural hypoventilatory discoid like atelectatic changes in part compatible with this. Trace ground-glass opacity likely inflammatory borders the left fissure. No dense consolidation. No suspicious appearing mass. Distal esophagus distended with gas; concomitant hiatal hernia here possible.. LIVER: Unremarkable. No gross lesion or ductal dilatation. GALLBLADDER AND BILE DUCTS: Unremarkable. PANCREAS: Unremarkable. No gross lesion or ductal dilatation. SPLEEN: Unremarkable. ADRENALS: Unremarkable. No mass. KIDNEYS AND URETERS: Bilateral intra and minimal extra renal pelviectasis. No peripheral caliectasis seen to suggest hydronephrosis. SK. No solid mass. VASCULATURE: Tiny 1 mm or sub mm right hemipelvic phlebolith apparent. No aortic aneurysm. No aortic atherosclerotic calcification or mural plaque present. BOWEL: Moderate colonic redundancy.. No obstruction. No gross mural thickening. There is extensive heterogeneous material within the gastric antrum along with the contrast-this appearance is nonspecific and may relate to recent food ingestion. Correlate clinically. APPENDIX: Normal appendix. PERITONEUM: Unremarkable. No free fluid. No free air. LYMPH NODES: Unremarkable. No enlarged lymph nodes. BLADDER: Distended but otherwise unremarkable. REPRODUCTIVE: Unremarkable. BONES: No acute fracture. OTHER FINDINGS: None. IMPRESSION: No acute intra-abdominal or pelvic pathology noted. No mechanical bowel obstruction seen. Redundant colon: Unremarkable appearing appendix. Gastric antral contents-nonspecific as above. Correlate clinically Bilateral intra and extra renal mild pelviectasis. No peripheral caliectasis seen to suggest a more significant hydronephrosis. Other findings as above. Concordant results (preliminary interpretation) provided by [employer].
== END 2018-11-20 00:15 | disposition home or self-care (01) ==
LOC: H.ER 18:52
DX: K29.70 Gastritis, unspecified, without bleeding (principal); R19.7 Diarrhea, unspecified; F31.9 Bipolar disorder, unspecified; J45.909 Unspecified asthma, uncomplicated
CPT/HCPCS: 74177; 80053; 80324; 80345; 80346; 80349; 80353; 80358; 80361; 81003; 83690; 83992; 85025; 87070; 87086; 87430; 87804; 96374; 99284; J2405; J7030; Q9966; Q9967